=== PATIENT | female | born 1955 | race Caucasian/White ===

== ENCOUNTER 2019-06-19 14:40 | Outpatient (CLI) | payer MEDICARE, SELFPAY ==
--- NOTE | 2019-06-19 15:06 | XR_ITS ---
WS: [id number] DEXA (DUAL ENERGY X-RAY ABSORPTIOMETRY) Bone mineral density was performed using a [employer] machine. HISTORY: ASYMPTOMATIC POSTMENOPAUSAL STATUS, HYPERPARATHYROIDISM- COMPARISON: 03/06/2015 Lumbar spine BMD (L1-L4): 1.271 g/cm2 T score: 0.8 Z score: 1.1 Total hip BMD: Left: 0.783 g/cm2. T score: -1.8 Z score: -1.5 Right: 0.815 g/cm2. T score: -1.5 Z score: -1.2 10 year probability of a major osteoporotic fracture is 10%. Compared to the prior study from 03/06/2015. Lumbar spine bone mineral density has increased by 12.6%. Bilateral hips bone mineral density has decrease by 8.3%. XR/XR DEXA axial skeleton* [id number] IMPRESSION: OSTEOPENIA based upon the WHO classification for females. Significant decrease in bone mineral density in the hips since the prior study. Bone mineral density in the lumbar spine has increased but I believe this is p robably due to increasing sclerosis and causing false elevation of the BMD.
== END 2019-06-19 14:41 | disposition home or self-care (01) ==
LOC: RADWPI 14:47
PROVIDERS: Family Provider Internal Medicine; PCP Internal Medicine; Visit Provider Internal Medicine
DX: Z78.0 Asymptomatic menopausal state (principal); E21.2 Other hyperparathyroidism; M85.89 Other specified disorders of bone density and structure, multiple sites
CPT/HCPCS: 77080

== ENCOUNTER 2019-10-29 10:06 | Outpatient (CLI) | payer MEDICARE, SELFPAY ==
--- NOTE | 2019-10-29 10:19 | CT_ITS ---
WS: [id number] LDCT LUNG CANCER SCREENING TECHNIQUE: Noncontrast CT of the chest with coronal and sagittal reformatted images. CLINICAL INFORMATION: NICOTINE,DEPENDENCE COMPARISON: None. DLP: 76.4 mGy.cm DIvol: 2.[address] scans at [facility] use at least one of these dose optimization techniques: automat ed exposure control; mA and/or kV adjustment per patient size (includes targeted exams where dose is matched to clinical indication); or iterative reconstruction. FINDINGS: Moderate chronic emphysematous changes. Calcified granuloma right lower lobe. No suspicious pulmonary parenchymal abnormalities. Aortic calcification. Coronary calcification. No mediastinal or hilar lym phadenopathy. Partially visualized right adrenal nodules likely adenomas appear unchanged since CTA D ec2018. This is poorly visualized. Hypertrophic changes thoracic spine. CT/CT lung screening [id number] IMPRESSION: LUNG-RADS: 1-Negative FOLLOW UP: 12 Month: Continue annual screening with LDCT
== END 2019-10-29 10:07 | disposition home or self-care (01) ==
LOC: CT 10:08
PROVIDERS: PCP Internal Medicine; Visit Provider Internal Medicine
DX: F17.218 Nicotine dependence, cigarettes, with other nicotine-induced disorders (principal)
CPT/HCPCS: G0297

== ENCOUNTER 2020-04-06 07:37 | Outpatient (CLI) | payer MEDICARE, SELFPAY ==
--- NOTE | 2020-04-06 08:06 | NM_ITS ---
WS: [id number] NUCLEAR MEDICINE PARATHYROID SCAN HISTORY: PRIMARY HYPERPARATHYROIDISM COMPARISON: 10/24/2018 Patient is injected with 20.1 mCi technetium 99m Sestamibi. Static imaging of the anterior neck and u pper thorax submitted at injection time and one hour postinjection. Sternal notch marker and chin mar kers are placed. Normal activity and uptake in the thyroid gland bilaterally on the early imaging. On the delayed imag ing, activity from the thyroid gland has washed out. There is no persistent focal nodule to suggest p arathyroid adenoma. NM/NM parathyroid [id number] IMPRESSION: No parathyroid adenoma identified. Similar to the prior parathyroid scan of 09/30.
== END 2020-04-06 07:38 | disposition home or self-care (01) ==
PROVIDERS: PCP Internal Medicine; Visit Provider Otolaryngology
DX: E21.0 Primary hyperparathyroidism (principal)
CPT/HCPCS: 78070; A9500

== ENCOUNTER → 2020-08-21 12:49 | Outpatient (BNVA) | payer MEDICARE, SELFPAY | PROVIDERS: PCP Internal Medicine; Visit Provider Internal Medicine | DX: Z01.812 Encounter for preprocedural laboratory examination (principal); Z20.822 Contact with and (suspected) exposure to COVID-19 | CPT/HCPCS: 87635 ==

== ENCOUNTER → 2020-09-11 13:36 | Outpatient (BNVA) | payer MEDICARE, SELFPAY | PROVIDERS: PCP Internal Medicine; Visit Provider Internal Medicine | DX: Z01.812 Encounter for preprocedural laboratory examination (principal); Z20.822 Contact with and (suspected) exposure to COVID-19 | CPT/HCPCS: 87635 ==

== ENCOUNTER 2020-09-16 11:22 | Outpatient (CLI) | payer MEDICARE, SELFPAY ==
--- NOTE | 2020-09-16 12:59 | PFTS_ITS ---
Date of Study:09/16/20 Date of Dictation: MECHANICS: Forced vital capacity (FVC) is reduced. Forced expiratory volume in one second (FEV1) is reduced. FEV1/FVC is normal. FLOW VOLUME LOOP: Normal. LUNG VOLUMES: Not measured DIFFUSING CAPACITY FOR CARBON MONOXIDE: Not measured INTERPRETATION: The postbronchodilator spirometry is consistent with moderate restriction. There is no significant postbronchodilator response. MTDD
== END 2020-09-16 11:23 | disposition home or self-care (01) ==
LOC: RT 11:24
PROVIDERS: PCP Internal Medicine; Visit Provider Internal Medicine
DX: J44.9 Chronic obstructive pulmonary disease, unspecified (principal)
CPT/HCPCS: J7611

== ENCOUNTER 2020-12-04 12:57 | Emergency (ER) | payer MEDICARE, SELFPAY ==
[2020-12-04 13:08] VITALS: BP 82/52; PULSE 81; RESP 16; TEMP 36.8; O2SAT 94; BMI 46.5
[2020-12-04 13:47] VITALS: BP 100/66; BP 73/56; BP 85/54; PULSE 88; PULSE 90; PULSE 91
[2020-12-04] MEDS: sodium chloride 0.9% 1,000 ML 999 ML IV (13:58)
[2020-12-04 14:00] LABS: Add Urine Microscopic? NO; Charge for UA Resulting for Rev
[2020-12-04 14:01] LABS: Basophils # 0.1 10^3/uL (0.0-0.1); Basophils % 0.5 %; Eosinophils # 0.2 10^3/uL (0.0-0.8); Eosinophils % 1.4 %; Hematocrit 41.4 % (37.0-47.0); Hemoglobin 14.1 g/dL (11.5-15.3); Lymphocytes # 2.1 10^3/uL (0.8-4.8); Lymphocytes % 14.3 %; Mean Corpuscular HGB Conc 34.1 g/dL (30.0-36.0); Mean Corpuscular Hemoglobin 35.5 pg (28.0-34.0); Mean Corpuscular Volume 104.3 fL (81-99); Mean Platelet Volume 10.1 fL (7.4-10.4); Monocytes % 6.8 %; Neutrophils # 11.16 10^3/uL (1.8-7.7); Neutrophils % 76.5 %; Nucleated Red Blood Cells % 0 %; Platelet Count 306 10^3/cmm (130-400); Red Blood Count 3.97 10^6/uL (4.1-5.3); Red Cell Distribution Width 14.6 % (12.1-15.1); White Blood Count 14.6 10^3/uL (4.0-10.0)
--- NOTE | 2020-12-04 14:10 | W.ED.SYNCOPE ---
HPI - Syncope General: Chief Complaint: Syncope Stated Complaint: SYNCOPAL EPISODE/ HYPOTENSION Time Seen by Provider: 12/04/20 13:23 History of Present Illness: HPI narrative: 85-year-old female presents emergency room via EMS. She was at [facility] walking around got lightheaded and dizzy she sat down she took a couple of sugar tablets had a near syncopal episode EMS reports she was hypotensive on the scene. She has had similar episodes in the past. Her blood sugar in the field was reported to be 200. She is feeling fine now she is very orthostatic on evaluation. She denies any chest pain difficulty breathing. She did not have any chest pain prior she remembers all the events surrounding it. She denies that she lost consciousness she did not hit her head or injure herself in any other way. MD complaint: almost passed out and collapsed Onset (ago): minute(s) Prodromal symptoms: lightheaded Witnessed: Yes - by Bystander Associated symptoms: Reports lightheadedness and nausea; Deny abdominal pain, chest pain, fever(s), headache(s) or weakness Treatments prior to arrival: glucose Review of Systems Const: Denies: fever(s) ENMT: Denies: throat pain, ear or mastoid pain, nasal discharge or nasal congestion Card: Reports: lightheadedness; Denies: chest pain Resp: Denies: dyspnea, productive cough or non-productive cough GI: Reports: nausea; Denies: abdominal pain : Denies: flank pain, difficulty voiding, dysuria, urinary frequency or urinary urgency Skin/Breast: Denies: rash or pruritus Neuro: Denies: headache(s) PFSH ED PFSH: Medical History Abdominal aortic aneurysm (AAA) CAD (coronary artery disease) HTN (hypertension) Hyperlipidemia Ischemic cardiomyopathy Family History Father Diabetes Myocardial infarction Grandmother Diabetes Other CAD (coronary artery disease) Cancer Hypertension Social History Smoking and tobacco status: current some day smoker (stress smoker) Physical Exam Const: COMMON NORMALS: no acute distress GENERAL APPEARANCE: cooperative and comfortable ORIENTATION/CONSCIOUSNESS: Yes awake, Yes oriented to person, Yes oriented to place and Yes oriented to time HENMT: COMMON NORMALS: normocephalic, atraumatic, hearing grossly normal bilaterally and external ears normal HEAD & SCALP: normocephalic and atraumatic EXTERNAL EAR: Yes external ears normal Neck/C-Spine: COMMON NORMALS: no JVD Resp: COMMON NORMALS: normal respiratory effort, No retractions, No use of accessory muscles and clear to auscultation bilaterally AUSCULTATION: clear to auscultation bilaterally Cardio: COMMON NORMALS: no JVD, regular rate, regular rhythm and No murmurs present (Cardio) RATE: regular rate RHYTHM: regular rhythm GI: COMMON NORMALS: Soft to palpation and No hepatosplenomegaly present AUSCULTATION: Yes normoactive bowel sounds PALPATION: Yes Soft to palpation, No Tenderness to palpation present (GI), No Guarding due to palpation present (GI) and Yes No hepatosplenomegaly present Extremity: COMMON NORMALS: normal to inspection, capillary refill normal, no clubbing, cyanosis or edema, no calf tenderness and no pedal edema Neuro: SENSORIUM/ORIENTATION: Yes oriented to person, Yes oriented to place and Yes oriented to time Skin: COMMON NORMALS: no rashes or lesions noted GENERAL SKIN EXAM: no rashes or lesions noted Course Vital Signs: Vital signs: Vital Signs Temperature 98.2 F 12/04/20 16:12 Pulse Rate 86 12/04/20 16:12 Respiratory Rate 18 12/04/20 16:12 Blood Pressure 118/88 12/04/20 16:12 Pulse Oximetry 95 12/04/20 16:12 MDM - Syncope MDM Narrative: Medical decision making narrative: With IV fluids symptoms have improved and resolved. Patient is mildly hypokalemic will give her some potassium supplement. Return if has any further problems. Discussed with her following with primary care doctor about adjusting her medications particularly either Coreg or her amlodipine. Lab Data: Labs: Lab Results 12/04/20 12/04/20 12/04/20 Range/Units 13:42 13:50 13:50 WBC 14.6 H (4.0-10.0) 10^3/ uL RBC 3.97 L (4.1-5.3) 10^6/u L Hgb 14.1 (11.5-15.3) g/dL Hct 41.4 (37.0-47.0) % MCV 104.3 H (81-99) fL MCH 35.5 H (28.0-34.0) pg MCHC 34.1 (30.0-36.0) g/dL RDW 14.6 (12.1-15.1) % Plt Count 306 (130-400) 10^3/c mm MPV 10.1 (7.4-10.4) fL Neut % (Auto) 76.5 % Lymph % (Auto) 14.3 % [place] % (Auto) 6.8 % Eos % (Auto) 1.4 % Baso % (Auto) 0.5 % Neut # (Auto) 11.16 H (1.8-7.7) 10^3/u L Lymph # (Auto) 2.1 (0.8-4.8) 10^3/u L [place] # (Auto) 1.0 H (0.2-0.9) 10^3/u L Eos # (Auto) 0.2 (0.0-0.8) 10^3/u L Baso # (Auto) 0.1 (0.0-0.1) 10^3/u L Nucleated RBC % (a uto) 0 % Nucleated RBCs # 0.0 /100WBC Sodium 138 (136-145) mmol/L Potassium 3.0 L (3.5-5.1) mmol/L Chloride 96 L (98-107) mmol/L Carbon Dioxide 32 H (22-29) mmol/L Anion Gap 13.0 (5-19) BUN 10 (8-23) mg/dL Creatinine 1.1 H (0.5-0.9) mg/dL GFR Calculation 49.8 L (90-130) mL/min Glucose 200 H (65-115) mg/dL Calculated Osmolal ity 291 (285-295) mOsm/k g Calcium 7.4 L (8.5-10.5) mg/dL Total Bilirubin 0.8 (0.15-1.2) mg/dL AST 14 (0-32) U/L ALT 8 (0-33) U/L Alkaline Phosphata se 134 H (35-105) IU/L Total Protein 6.7 (6.6-8.7) g/dL Albumin 3.5 (3.5-5.2) g/dL Globulin 3.2 (1.3-4.6) g/dL Urine Color Straw (Yellow) Urine Appearance Clear (CLEAR) Urine pH 8 H (5-7) Ur Specific Gravit y 1.005 (1.005-1.030) Urine Protein Neg (Negative) Urine Glucose (UA) Norm (Normal) Urine Ketones Negative (Negative) Urine Blood Neg (Negative) Urine Nitrate Negative (Negative) Urine Bilirubin Neg (Negative) Prot Sulfosalicyli c Acd Negative (Negative) Urine Urobilinogen Norm (Negative) mg/dL Ur Leukocyte Michelle ase Negative (Negative) Discharge Plan Discharge Patient Disposition: Home Clinical Impression: Orthostasis, Hypokalemia Condition: Stable Prescriptions: New potassium chloride 20 mEq tablet,ER particles/crystals 20 meq PO DAILY Qty: 30 RF: 0 No Action lisinopril 20 mg tablet 20 mg PO DAILY RF: 0 calcium carbonate-vitamin D3 [Calcium 600 with Vitamin D3] 600 mg(1,500mg) -500 unit capsule 2 cap PO DAILY RF: 0 potassium gluconate 595 mg (99 mg) tablet extended release 99 mg PO DAILY RF: 0 bumetanide 1 mg tablet 1 mg PO DAILY RF: 0 carvedilol [Coreg] 25 mg tablet 25 mg PO BID RF: 0 cyclobenzaprine 10 mg tablet 10 mg PO BID PRN (Reason: Pain) RF: 0 fluticasone propionate [Allergy Relief (fluticasone)] 50 mcg/actuation spray,suspension 1 spray INTRANASAL DAILY RF: 0 atorvastatin [Lipitor] 40 mg tablet 40 mg PO DAILY RF: 0 nitroglycerin [Nitrostat] 0.4 mg tablet, sublingual 0.4 mg SUBLINGUAL Q5M PRN (Reason: Chest Pain) RF: 0 amlodipine [Norvasc] 5 mg tablet 5 mg PO DAILY RF: 0 famotidine [Pepcid] 20 mg tablet 20 mg PO DAILY RF: 0 sertraline [Zoloft] 25 mg tablet 25 mg PO DAILY RF: 0 cetirizine [Zyrtec] 10 mg tablet 10 mg PO DAILY RF: 0 Ozempic 0.25 mg or 0.5 mg(2 mg/1.5 mL) pen injector 0.5 mg SUBCUT Q7D RF: 0 insulin asp prt-insulin aspart [Novolog Mix 70-30 U-100 Insuln] 100 unit/mL (70-30) solution 5 unit SUBCUT .sliding scale RF: 0 Tresiba FlexTouch U-100 100 unit/mL (3 mL) insulin pen 50 unit SUBCUT DAILY RF: 0 prasugrel [Effient] 10 mg tablet 10 mg PO DAILY Qty: 90 RF: 3 isosorbide mononitrate 30 mg tablet extended release 24 hr 30 mg PO DAILY Qty: 90 RF: 3 omeprazole 40 mg Capsule,Delayed Release(Dr/Ec) 40 mg PO DAILY RF: 0 Robaxin 750 mg Tablet 750 mg PO Q8H PRN (Reason: Pain) RF: 0 Symbicort 160-4.5 mcg/actuation Hfa Aerosol Inhaler 2 puff INHALATION BID PRN (Reason: Shortness Of Breath) RF: 0 Discharge Orders: Discharge ED (Routine); Ordered 12/04/20 Ordered By: Jose Nixon Referrals: Amie Emery MD [Primary Care Provider] - Patient Instructions: Opioid Safety Coding Level of Care Code ED Md Allergy Immunology for Chg Fwd Exam Comprehensive
[2020-12-04 14:11] LABS: Bilirubin Urine Neg (Negative); Blood Urine Neg (Negative); Glucose Urine UA Norm (Normal); Ketones Urine Negative (Negative); Leukocyte Esterase Urine Negative (Negative); Nitrate Urine Negative (Negative); Protein Urine Neg (Negative); Specific Gravity, Urine 1.005 (1.005-1.030); Sulfosalicylic Acid Urine Negative (Negative); Urine Appearance Clear (CLEAR); Urine Color Straw (Yellow); Urobilinogen Urine Norm (Negative); pH Urine 8 (5-7)
[2020-12-04 14:32] LABS: Alanine Aminotransferase 8 U/L (0-33); Albumin Level 3.5 g/dL (3.5-5.2); Alkaline Phosphatase 134 IU/L (35-105); Aspartate Amino Transferase 14 U/L (0-32); Blood Urea Nitrogen 10 mg/dL (8-23); Calcium 7.4 mg/dL (8.5-10.5); Carbon Dioxide 32 mmol/L (22-29); Chloride 96 mmol/L (98-107); Globulin 3.2 g/dL (1.3-4.6); Glomerular Filtration Rate 49.8 mL/min (90-130); Glucose 200 mg/dL (65-115); Osmolality Calculated 291 mOsm/kg (285-295); Sodium 138 mmol/L (136-145); Total Bilirubin 0.8 mg/dL (0.15-1.2); Total Protein 6.7 g/dL (6.6-8.7)
[2020-12-04 15:18] VITALS: BP 92/66; PULSE 81; RESP 16; O2SAT 93
[2020-12-04 15:39] VITALS: BP 119/77
[2020-12-04 15:58] VITALS: BP 118/88; PULSE 86; RESP 18; O2SAT 95
[2020-12-04 16:12] VITALS: BP 118/88; PULSE 86; RESP 18; TEMP 36.8; O2SAT 95
== END 2020-12-04 16:16 | disposition home or self-care (01) ==
PROVIDERS: Emergency Provider Family Medicine; PCP Internal Medicine
DX: I95.1 Orthostatic hypotension (principal); E87.6 Hypokalemia; Z79.4 Long term (current) use of insulin; I25.10 Atherosclerotic heart disease of native coronary artery without angina pectoris; I10 Essential (primary) hypertension; E78.5 Hyperlipidemia, unspecified; F17.210 Nicotine dependence, cigarettes, uncomplicated
CPT/HCPCS: 80053; 81003; 85025; 96360; 99284; J7030

== ENCOUNTER 2020-12-15 07:07 | Outpatient (CLI) | payer MEDICARE, SELFPAY ==
--- NOTE | 2020-12-15 07:39 | ECG_ITS ---
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 The perfusion scan will be documented separately. DATA: Baseline heart rate was 89 beats per minute. Baseline blood pressure was 126/82 millimeters of mercury. Target heart rate was 155. Maximum heart rate achieved was 125. which was 80 % of the predicted target heart rate. Maximum blood pressure was 140/85 millimeters of mercury. The reason for ending the test was completion of the protocol. The patient did not experience any symptoms. ELECTROCARDIOGRAM: BASELINE: Sinus rhythm, normal axis. Otherwise, no ST-T changes suggestive of ischemia noted. No arrhythmia noted. EXERCISE: After Lexiscan injection, no ST-T changes suggestive of ischemic noted. No arrhythmia noted. CONCLUSION: Please note due to baseline abnormality of the EKG specificity and sensitivity of the EKG portion of LexiScan MIBI stress test will be low 1. EKG not suggestive of ischemia 2. Lexiscan injection unremarkable. 3. Perfusion scan will be documented separately. Electronically Signed On 12-23-2020 21:13:04 CDT by ORIANA FRENCH [id number]
--- NOTE | 2020-12-15 07:40 | NMCV_ITS ---
NM everardo perf SPECT r/s* [id number] Jw Jessa Age: 65 Gender: F : 1955 Exam Date: 12/15/2020 08:30 Ordering Phys: Oriana French MD ([email or web address]) Technologist: ROGER Hardin Exam Location: [facility] Indications: SHORTNESS OF BREATH CHEST PAIN STRESS TEST Please see separate stress test report in [facility] for full findings IMAGE PROTOCOL Rest/Stress 1 Lexiscan Day Radiopharmaceutical Dose (mCi) Administration Site Administered by Rest: Tc-99m 10.6 IV ROGER Moreno Sestamibi Stress:Tc-99m 32.8 IV ROGER Moreno Sestamibi Rest: 15-Dec-2020 60 Discovery 630 Stress: 15-Dec-2020 30 Discovery 630 0.4mg Lexiscan. Supine position only as patient was unable to lay prone. SPECT RESULTS Technical Quality: Good Raw Data Analysis: Breast attenuation Image Corrections: No attenuation or motion correction applied Summed Stress Score: 4 Summed Rest Score: 0 Summed Difference Score: 4 PERFUSION FINDINGS Medium-sized area of patchy decreased tracer uptake noted in basal to distal inferior wall suggestive of old myocardial infarction versus scarring. In the absence of wall motion abnormality could be an artifact. FUNCTIONAL RESULTS (calculated via Gated SPECT) Stress Image LV EF (%): 75 Stress EDV (mL):77 TID: 1 Stress ESV (mL):19 Rest Image LV EF (%): 75 FUNCTIONAL FINDINGS: There is normal left ventricular systolic function. IMPRESSIONS Perfusion scan is negative for ischemia, EKG portion will be documented separately. Oriana French MD (Electronically Signed) Final Date: 15 December 2020 16:50 S
[2020-12-15 07:41] VITALS: BMI 44.9
[2020-12-15] MEDS: regadenoson 0.4 Mg/5 ml Syringe IVP (09:11)
[2020-12-15 09:12] VITALS: BP 123/81; PULSE 101
[2020-12-15] MEDS: ondansetron 2 mg/ML SDV 2 mL 4 MG IVP (09:12)
== END 2020-12-15 07:08 | disposition home or self-care (01) ==
PROVIDERS: PCP Internal Medicine; Visit Provider Internal Medicine Cardiovascular Disease
DX: R06.02 Shortness of breath (principal); R07.9 Chest pain, unspecified
CPT/HCPCS: 78452; 93017; A9500; J2405; J2785

== ENCOUNTER 2020-12-31 07:50 | Outpatient (CLI) | payer MEDICARE, SELFPAY ==
--- NOTE | 2020-12-31 08:00 | USCV_ITS ---
Jessa Escalera Age: 65 Gender: F : 1955 Exam Date: 12/31/2020 08:13 Ordering Phys: Oriana French MD ([email or web address]) Technologist: [place]am [place] [facility] [place]ication: AAA HISTORY: Diameter (cm) AP x Transverse x Length Velocity (cm/s) Waveform Prox Aorta: 2.46 x 2.26 x 65.50 Biphasic Mid Aorta: 2.37 x 2.52 x 58.00 Biphasic Distal Aorta: 3.59 x 3.62 x 100.80 Biphasic Right Iliac Prox: 1.35 x 1.44 x 61.10 Biphasic Left Iliac Prox: 1.25 x 1.64 x 72.70 Biphasic Stent Prox Landing x x Aneurysmal Sac Max x x Lt Lat Sac Dim Rt Lat Sac Dim Stent Dist Landing x x Right Iliac Stent x x Left Iliac Stent x x Right Renal Art Left Renal Art FINDINGS: Comparison: none available. A fusiform abdominal aortic aneurysm is noted with a maximal diameter of 3.6 cm. Ectatic abdominal aorta with evidence of atherosclerotic plaque noted. There is no evidence of a right common iliac artery aneurysm. There is no evidence of a left common iliac artery aneurysm. CONCLUSIONS AAA with maximum diameter of 3.[address] Raysa Lucero DO (Electronically Signed) Final Date: 31 December 2020 12:07 S
== END 2020-12-31 07:51 | disposition home or self-care (01) ==
PROVIDERS: PCP Internal Medicine; Visit Provider Internal Medicine Cardiovascular Disease
DX: I71.4 Abdominal aortic aneurysm, without rupture (principal)
CPT/HCPCS: 93978

== ENCOUNTER 2021-01-01 07:29 | Outpatient (CLI) | payer MEDICARE, SELFPAY ==
--- NOTE | 2021-01-01 08:00 | USCV_ITS ---
Jessa Escalera Age: 65 Gender: F : 1955 Exam Date: 01/01/2021 08:20 Ordering Phys: Amie Emery MD Technologist: Earline Arellano Exam Location: [facility] [place] Indication: edema BP: 109 / 64 HR: 78 Rhythm: Sinus Technical Quality: Adequate MEASUREMENTS (Male / Female) Normal Values 2D ECHO LV Diastolic Diameter PLAX 5.0 cm 4.2 - 5.9 / 3.9 - 5.3 cm LV Systolic Diameter PLAX 2.3 cm IVS Diastolic Thickness 1.0 cm 0.6 - 1.0 / 0.6 - 0.9 cm IVS Systolic Thickness 2.1 cm LVPW Diastolic Thickness 0.9 cm 0.6 - 1.0 / 0.6 - 0.9 cm LVPW Systolic Thickness 1.8 cm LV Ejection Fraction 2D Teich 85.1 % LV Ejection Fraction MOD 2C 68.6 % LV Ejection Fraction 2C AL 68.6 % LA Diameter 3.3 cm LA Width 3.0 cm LA Height 5.6 cm RA Width 3.6 cm RA Height 5.4 cm Aorta at Sinotubular Diameter 3.1 cm M-MODE Aortic Annulus Diameter 3.5 cm LA Ao Ratio MM 0.9 DOPPLER AV Peak Velocity 198.7 cm/s LVOT Peak Velocity 76.0 cm/s MV Peak Velocity 111.0 cm/s MV Area PHT 4.5 cm squared Mitral E to A Ratio 0.9 MV E' Velocity 47.0 cm/s Mitral E to MV E' Ratio 11.6 Mitral E to LV E' Lateral Ratio 12.9 Mitral E to LV E' Septal Ratio 10.6 TR Peak Velocity 119.2 cm/s TR Peak Gradient 5.7 mmHg Right Atrial Pressure 3.0 mmHg Pulmonary Artery Systolic Pressu 8.7 mmHg PV Peak Velocity 80.0 cm/s RV Acceleration Time 0.1 s RV Ejection Time 0.3 s RV AcT/ET 0.3 FINDINGS Left Ventricle Normal left ventricular cavity size. Normal left ventricular systolic function. No regional wall motion abnormalities. Left ventricular ejection fraction is estimated at 65 %. Grade I/IV diastolic dysfunction (abnormal relaxation filling pattern), normal to mildly elevated filling pressures. Right Ventricle The right ventricle is normal in size and function. Right Atrium The right atrium is normal in size. Left Atrium The left atrium is normal in size. Mitral Valve Mildly thickened mitral valve. No mitral valve stenosis. No mitral valve regurgitation. Aortic Valve There appeared to be possible bicuspid aortic valve , moderate aortic valve calcification. No aortic valve stenosis. Mild aortic valve regurgitation. Tricuspid Valve Mild tricuspid valve regurgitation. Pulmonic Valve Structurally normal pulmonic valve without significant stenosis. There is no pulmonic regurgitation. Pericardium Normal pericardium without effusion. Aorta Normal ascending aorta dimension. CONCLUSIONS 1-Normal left ventricular cavity size. Normal left ventricular systolic function. No regional wall motion abnormalities. Left ventricular ejection fraction is estimated at 65 %. Grade I/IV diastolic dysfunction (abnormal relaxation filling pattern), normal to mildly elevated filling pressures. 2-There appeared to be possible bicuspid aortic valve , moderate aortic valve calcification. No aortic valve stenosis. Mild aortic valve regurgitation. 3-Mild tricuspid valve regurgitation. 4-There is no pericardial effusion. 5-Pulmonary artery systolic pressure is within normal limits. 6-Right atrial pressure is around 5 mm of mercury. 7-No significant change since the prior echocardiogram study of 08/20/2018. Oriana French MD (Electronically Signed) Final Date: 01 January 2021 15:46 S
== END 2021-01-01 07:30 | disposition home or self-care (01) ==
LOC: RAD 07:33
PROVIDERS: PCP Internal Medicine; Visit Provider Internal Medicine
DX: R60.0 Localized edema (principal); F17.218 Nicotine dependence, cigarettes, with other nicotine-induced disorders; I08.2 Rheumatic disorders of both aortic and tricuspid valves
CPT/HCPCS: 93306

== ENCOUNTER 2021-01-21 13:08 | Outpatient (CLI) | payer MEDICARE, SELFPAY ==
--- NOTE | 2021-01-21 13:18 | XR_ITS ---
WS: [id number] Chest 2 views, 01/21/2021 Clinical Data: RULE OUT PNEUMONIA Comparison: PA and lateral chest, 09/19/2018. Findings: No nodules, masses or effusions are seen. The heart is normal. The pulmonary vascularity is not increased. No pneumonia or pneumothorax is seen. The aortic arch and descending thoracic aorta s how calcification and tortuosity. XR/XR chest 2V* [id number] Impression: Atherosclerosis.
[2021-01-21 13:51] LABS: Basophils # 0.1 10^3/uL (0.0-0.1); Basophils % 0.7 %; Eosinophils # 0.4 10^3/uL (0.0-0.8); Hematocrit 42.6 % (37.0-47.0); Hemoglobin 14.5 g/dL (11.5-15.3); Lymphocytes # 3.4 10^3/uL (0.8-4.8); Mean Corpuscular Hemoglobin 36.1 pg (28.0-34.0); Mean Platelet Volume 9.6 fL (7.4-10.4); Monocytes # 0.9 10^3/uL (0.2-0.9); Monocytes % 8.4 %; Neutrophils % 53.6 %; Nucleated Red Blood Cells % 0 %; Platelet Count 253 10^3/cmm (130-400); Red Blood Count 4.02 10^6/uL (4.1-5.3); Red Cell Distribution Width 13.2 % (12.1-15.1); White Blood Count 10.3 10^3/uL (4.0-10.0)
[2021-01-22 17:27] LABS: Alternaria Alternata (M6) Ige <0.10 kU/L; Alternaria Class 0; Bermuda Class 0; Bermuda Grass (G2) Ige <0.10 kU/L; Cat Dander (E1) Ige <0.10 kU/L; Cat Dander Class 0; Common Ragweed (Short) (W1) Ig <0.10 kU/L; D. Farinae Class 0; Dermatophagoides Class 0; Dermatophagoides Farinae (D2) <0.10 kU/L; Dermatophagoides Pteronyssinus <0.10 kU/L; Dog Dander (E5) Ige <0.10 kU/L; Dog Dander Class 0; Elm (T8) Ige <0.10 kU/L; Elm Class 0; English Plantain (W9) Ige <0.10 kU/L; English Plantain Class 0; House Dust (Greer) (H1) Ige <0.10 kU/L; House Dust (Hollister- Stier) <0.10 kU/L; House Dust Class 0; Immunoglobulin E 52 kU/L (<OR=114); Immunoglobulin E 54 kU/L (<OR=114); Johnson Grass (G10) Ige <0.10 kU/L; Johnson Grass Cl 0; June Grass Class 0; June Grass(Kentucky Blue) (G8) <0.10 kU/L; Lamb'S Quarters (Goose Foot) <0.10 kU/L; Lamb'S Quarters Class 0; Maple (Box Elder) (T1) Ige <0.10 kU/L; Maple Class 0; Meadow Fescue (G4) Ige <0.10 kU/L; Meadow Fescue Class 0; Mucor Racemosus Class 0; Oak (T7) Ige <0.10 kU/L; Oak Class 0; Orchard Grass (Cocksfoot) (G3) <0.10 kU/L; Penicillium Class 0; Penicillium Notatum (M1) Ige <0.10 kU/L; Perennial Rye Grass (G5) Ige <0.10 kU/L; Perennial Rye Grass Class 0; Ragweeed Class 0; Rough Marsh Elder (W16) Ige <0.10 kU/L; Rough Marsh Elder Class 0; Sweet Vernal Class 0; Sweet Vernal Grass (G1) Ige <0.10 kU/L; Timothy Grass (G6) Ige <0.10 kU/L; Timothy Grass Class 0
[2021-01-25 17:18] LABS: Aspergillus Fumigatus, Igg Ab, <3.0 mg/L (<=102)
== END 2021-01-21 13:09 | disposition home or self-care (01) ==
LOC: RAD 13:14
PROVIDERS: PCP Internal Medicine; Visit Provider Internal Medicine Pulmonary Disease
DX: J44.9 Chronic obstructive pulmonary disease, unspecified (principal); R06.02 Shortness of breath; I70.90 Unspecified atherosclerosis
CPT/HCPCS: 36415; 71046; 82785; 85025; 86003

== ENCOUNTER 2021-02-15 12:26 | Outpatient (CLI) | payer MEDICARE, SELFPAY ==
--- NOTE | 2021-02-15 13:03 | MM_ITS ---
WS: [id number] BILATERAL DIGITAL SCREENING MAMMOGRAPHY WITH CAD CLINICAL INFORMATION: SCREEN HISTORY: Screening mammogram. No current complaints. COMPARISON: August 20, 2018 TECHNIQUE: Bilateral CC and MLO views. FINDINGS: Scattered fibroglandular densities bilaterally. Punctate and secretory calcifications. No suspicious focal mass, asymmetry, calcifications, or architectural distortion. No evidence of malignancy. MM/[place] [id number] IMPRESSION: BI-RADS: 2-Benign FOLLOW UP: 1 Year Follow-up Recommend return to annual screening mammography.
== END 2021-02-15 12:27 | disposition home or self-care (01) ==
LOC: RADSHAW 12:29
PROVIDERS: PCP Internal Medicine; Visit Provider Internal Medicine
DX: Z12.31 Encounter for screening mammogram for malignant neoplasm of breast (principal)
CPT/HCPCS: 77067

== ENCOUNTER → 2021-07-12 14:42 | Outpatient (BNVA) | payer MEDICARE, SELFPAY | PROVIDERS: PCP Internal Medicine; Visit Provider Internal Medicine | DX: I25.10 Atherosclerotic heart disease of native coronary artery without angina pectoris (principal); I10 Essential (primary) hypertension; I25.5 Ischemic cardiomyopathy; I71.4 Abdominal aortic aneurysm, without rupture; Z87.891 Personal history of nicotine dependence | CPT/HCPCS: 99214 ==

== ENCOUNTER 2021-09-21 12:19 | Outpatient (CLI) | payer MEDICARE, SELFPAY ==
--- NOTE | 2021-09-21 12:40 | CT_ITS ---
WS: [id number] CT CHEST WITH INTRAVENOUS CONTRAST HISTORY: COUGH/COPD TECHNIQUE: Contiguous 5 mm axial imaging performed on the thorax. Coronal and sagittal reformats are submitted. All CT scans at [facility] use at least one of these dose optimization techniques: automated exposure control; mA and/or kV adjustment per patient size (includes targeted exams where dose is matched to clinical indication); or iterative reconstruction. CONTRAST: Omnipaque 300; 50 mL IV. DLP: 724.48 mGy.cm COMPARISON: 10/29/2019 Lungs and central airway: Noncalcified 7 mm nodule RIGHT lung base, image 38 of series 5. Stable on . Probably also present on the study of 04/01/2019 but increased in size. Mild increased densi ty in the RIGHT middle lobe from mild atelectasis. There is pleural thickening along the fissure. Pleura: Normal. No pleural effusion. Heart and pericardium: Normal size heart with no pericardial effusion. Mediastinum and roxana: No mediastinum or hilar adenopathy. Vessels: Mild atherosclerosis aorta. Normal size pulmonary artery. Coronary artery calcifications. Chest wall and lower neck: No soft tissue masses. Upper abdomen: RIGHT adrenal adenomas with the largest measuring 2.9 x 2.7 cm. Smaller adenoma on the RIGHT also. Normal LEFT adrenal gland. Osseous structures: Moderate spondylitic changes throughout the thoracic spine. Advanced degenerative joint disease involving the RIGHT glenohumeral joint. CT/CT chest w con* [id number] IMPRESSION: 1. 7 mm RIGHT lower lobe nodule slightly increased in size since 04/01/2019. Re commend additional [address] follow-up. 2. RIGHT adrenal adenomas. 3. Atherosclerosis thoracic aorta. 4. Partial atelectasis RIGHT middle lobe.
[2021-09-21] MEDS: iohexol 300 mg/mL 100 mL Btl IV (14:21)
== END 2021-09-21 12:20 | disposition home or self-care (01) ==
PROVIDERS: PCP Internal Medicine; Visit Provider Internal Medicine
DX: J44.9 Chronic obstructive pulmonary disease, unspecified (principal); R05.9 Cough, unspecified; D35.01 Benign neoplasm of right adrenal gland; R91.1 Solitary pulmonary nodule; I70.0 Atherosclerosis of aorta; J98.11 Atelectasis
CPT/HCPCS: 71260

== ENCOUNTER → 2022-01-10 14:42 | Outpatient (BNVA) | payer MEDICARE, SELFPAY | PROVIDERS: PCP Internal Medicine; Visit Provider Internal Medicine | DX: I25.10 Atherosclerotic heart disease of native coronary artery without angina pectoris (principal); I10 Essential (primary) hypertension; I25.5 Ischemic cardiomyopathy; I71.4 Abdominal aortic aneurysm, without rupture; F17.200 Nicotine dependence, unspecified, uncomplicated | CPT/HCPCS: 99214 ==

== ENCOUNTER → 2022-01-17 09:48 | Outpatient (BNVA) | payer MEDICARE, SELFPAY | PROVIDERS: PCP Internal Medicine; Visit Provider Internal Medicine Pulmonary Disease | DX: J44.9 Chronic obstructive pulmonary disease, unspecified (principal); R05.8 Other specified cough; G47.19 Other hypersomnia; I25.5 Ischemic cardiomyopathy; I25.10 Atherosclerotic heart disease of native coronary artery without angina pectoris; Z71.6 Tobacco abuse counseling; R06.83 Snoring; E66.01 Morbid (severe) obesity due to excess calories; Z68.42 Body mass index [BMI] 45.0-49.9, adult | CPT/HCPCS: 99214 ==

== ENCOUNTER → 2022-06-08 14:01 | Outpatient (BNVA) | payer MEDICARE, SELFPAY | PROVIDERS: PCP Internal Medicine; Visit Provider Podiatrist Foot & Ankle Surgery | DX: B35.1 Tinea unguium (principal); M24.573 Contracture, unspecified ankle; E11.42 Type 2 diabetes mellitus with diabetic polyneuropathy; M77.42 Metatarsalgia, left foot; Z79.4 Long term (current) use of insulin | CPT/HCPCS: 73630; 99204 ==

== ENCOUNTER → 2022-07-08 10:53 | Outpatient (BNVA) | payer MEDICARE, SELFPAY | PROVIDERS: PCP Internal Medicine; Visit Provider Nurse Practitioner Family | DX: I71.40 Abdominal aortic aneurysm, without rupture, unspecified (principal); I25.10 Atherosclerotic heart disease of native coronary artery without angina pectoris; I25.5 Ischemic cardiomyopathy; I10 Essential (primary) hypertension; F17.200 Nicotine dependence, unspecified, uncomplicated | CPT/HCPCS: 99214 ==

== ENCOUNTER → 2022-10-03 15:15 | Outpatient (BNVA) | payer MEDICARE, SELFPAY | PROVIDERS: PCP Internal Medicine; Visit Provider Podiatrist Foot & Ankle Surgery | DX: E11.42 Type 2 diabetes mellitus with diabetic polyneuropathy (principal); B35.1 Tinea unguium; M24.573 Contracture, unspecified ankle; G62.9 Polyneuropathy, unspecified; M77.42 Metatarsalgia, left foot; Z79.2 Long term (current) use of antibiotics | CPT/HCPCS: 11721 ==

== ENCOUNTER 2022-10-11 10:39 | Outpatient (CLI) | payer MEDICARE, SELFPAY ==
--- NOTE | 2022-10-11 10:48 | MM_ITS ---
WS: [id number] BILATERAL 3D TOMOSYNTHESIS DIGITAL SCREENING MAMMOGRAPHY WITH CAD CLINICAL INFORMATION: SCREENING HISTORY: Screening mammogram. No current complaints. COMPARISON: February 15, 2021 TECHNIQUE: Bilateral CC and MLO views. FINDINGS: Scattered fibroglandular densities bilaterally. No suspicious focal mass, asymmetry, calcifications, or architectural distortion. No evidence of malignancy. Incidental punctate calcifications. Secretory calcifications. MM/[place] [id number] IMPRESSION: BI-RADS: 2-Benign FOLLOW UP: 1 Year Follow-up Recommend return to annual screening mammography.
--- NOTE | 2022-10-11 11:23 | XRR_ITS ---
PROCEDURE INFORMATION: Exam: XR Lumbosacral Spine Exam date and time: 10/11/2022 11:26 AM Age: 67 years old Clinical indication: Low back pain; Patient HX: Trouble walking, ddd; Additional info: Degenerative disc dz, lumbosacral spine w/radiculopathy TECHNIQUE: Imaging protocol: Radiologic exam of the lumbosacral spine. Views: 6 or more views. Including flexion and extension views. COMPARISON: CT angio abdomen [id number] 04/01/2019 1:42 PM FINDINGS: Bones/joints: Spinal alignment is normal. Mild superior endplate compression fracture at L4. Diffuse upper lumbar disc narrowing and vertebral spondylosis. Mild convex left thoracolumbar scoliosis. Mild to moderate diffuse lumbar facet spondylosis. Visible portions of the ribs are intact. There is 5 mm anterolisthesis of L4 on L5 on the neutral view. This decreases to 2 mm on the flexion view and extension view. Soft tissues: Surgical clips are seen in the upper abdomen.There is a 3.2 cm calcified mass in the pelvis consistent with a calcified uterine leiomyoma. Intraperitoneal space: The visible portion of the pelvis is unremarkable. Vasculature: There is a 5.9 cm distal abdominal aortic aneurysm, increased since 04/01/2019 when it measured 3.4 cm. XR/XR lumbar spine 6V w f/e [id number] IMPRESSION: 1. 5.9 cm infrarenal abdominal aortic aneurysm, increased from 3.4 cm in 2019. Recommend CTA of the abdomen and pelvis. 2. Grade 1 anterolisthesis of L4 on L5 in the neutral position, decreased with flexion and extension. 3. Age-indeterminate L4 superior endplate compression fracture, new since 04/01/2019.
--- NOTE | 2022-10-11 11:36 | CT_ITS ---
WS: [id number] LDCT LUNG CANCER SCREENING TECHNIQUE: Noncontrast CT of the chest with coronal and sagittal reformatted images. CLINICAL INFORMATION: NICOTINE DEPENDENCE, CIGARETTES COMPARISON: CT September 21, 2021 DLP: 118.11 mGy.cm DIvol: Mean CTDIvol: 3.10 (mGy) All CT scans at [facility] use at least one of these dose optimization techniques: automat ed exposure control; mA and/or kV adjustment per patient size (includes targeted exams where dose is matched to clinical indication); or iterative reconstruction. FINDINGS: 7.6 mm RIGHT lower lobe nodule measures slightly more prominent today but not significantly changed. Slightly spiculated LEFT upper lobe nodule appears new from previous measuring 6.3 mm. Small RIGHT mi ddle lobe nodule measuring 4 mm. 4 mm nodule in the lingula. Ectatic ascending thoracic aorta measuring 4.1 cm unchanged. Normal caliber descending thoracic aorta . Coronary calcification. No mediastinal or hilar lymphadenopathy. No axillary lymphadenopathy.Spleni c artery calcification. Normal GE junction. Cholecystectomy clips. Stable RIGHT adrenal adenomas largest 2.9 CM. Hypertrophic changes thoracic spine. CT/CT lung screening 08120 IMPRESSION:7.6 mm RIGHT lower lobe nodule measures slightly more prominent toda y but not significantly changed. Slightly spiculated LEFT upper lobe nodule sony ears new from previous measuring 6.3 mm. Recommend 6 month follow-up. LUNG-RADS: 3-Probably Benign FOLLOW UP: 6 Month LDCT
== END 2022-10-11 10:40 | disposition home or self-care (01) ==
PROVIDERS: PCP Internal Medicine; Visit Provider Internal Medicine
DX: Z12.31 Encounter for screening mammogram for malignant neoplasm of breast (principal); Z13.820 Encounter for screening for osteoporosis; F17.210 Nicotine dependence, cigarettes, uncomplicated; M51.17 Intervertebral disc disorders with radiculopathy, lumbosacral region; I71.43 Infrarenal abdominal aortic aneurysm, without rupture; S32.048A Other fracture of fourth lumbar vertebra, initial encounter for closed fracture; X58.XXXA Exposure to other specified factors, initial encounter
CPT/HCPCS: 71271; 72114; 77063; 77067

== ENCOUNTER 2022-10-12 16:30 | Outpatient (CLI) | payer MEDICARE, SELFPAY ==
--- NOTE | 2022-10-12 16:39 | CTR_ITS ---
PROCEDURE INFORMATION: Exam: CTA Abdomen With Contrast Exam date and time: 10/12/2022 4:52 PM Age: 67 years old Clinical indication: Abnormal findings; Abnormal diagnostic imaging exam; Abnormality: Aaa; Exam and body structure: Xray lumbar spine; Prior surgery; Surgery date: 6+ months; Surgery type: Gallbladder, hernia; Patient HX: Back pain, known aneurysm; Additional info: Abdominal aortic aneurysm TECHNIQUE: Imaging protocol: Computed tomographic angiography of the abdomen with contrast. Exam focused on the arteries. 3D rendering (Not supervised by radiologist): MIP and/or 3D reconstructed images were created by the technologist. Radiation optimization: All CT scans at this facility use at least one of these dose optimization techniques: automated exposure control; mA and/or kV adjustment per patient size (includes targeted exams where dose is matched to clinical indication); or iterative reconstruction. Contrast material: OMNIPAQUE 350; Contrast volume: 95 ml; Contrast route: INTRAVENOUS (IV); REPORTING DATA: Count of CT and Cardiac NM exams in prior 12 months: This patient has received [address] and 0 known cardiac nuclear medicine studies in the 12 months prior to the current study. COMPARISON: CT angio abdomen [id number] 04/01/2019 1:42 PM RADIATION DOSE METRICS: Total DLP (mGy-cm): 503.2 FINDINGS: Aorta: Increased fusiform infrarenal abdominal aortic aneurysm measuring a maximum 5.0 cm in outer wall diameter. Asymmetric mural thrombus in the posterior and left portion of the aneurysm. Celiac trunk and mesenteric arteries: Calcified plaque with mild stenosis at the origin of the celiac artery and mild stenosis in the proximal superior mesenteric artery. Renal arteries: Calcified plaque with moderate stenosis in the proximal right renal artery and mild stenosis in the proximal left renal artery. Right iliac arteries: Mild aneurysmal dilatation of the right common iliac artery measuring 2.0 cm. Liver: Normal. No mass. Gallbladder and bile ducts: Cholecystectomy. The bile ducts are normal. Pancreas: Normal. No ductal dilation. Spleen: Normal. No splenomegaly. Adrenal glands: 2.5 cm and 3.0 cm right adrenal nodules, Hounsfield units less than 10. The left adrenal gland has been resected. Kidneys and ureters: 2 mm right and 3 mm left renal calculi. No hydronephrosis. Stomach and bowel: Unremarkable. No obstruction. No mucosal thickening. Lymph nodes: Unremarkable. No enlarged lymph nodes. Intraperitoneal space: Unremarkable. No free air. No significant fluid collection. Bones/joints: Degenerative changes of the spine. No fracture. Soft tissues: Unremarkable. CT/CT angio abdomen [id number] IMPRESSION: 1. Larger 5.0 cm infrarenal abdominal aortic aneurysm. No evidence for rupture. 2. 2.0 cm mild aneurysmal dilatation of the right common iliac artery. 3. Moderate stenosis in the proximal right renal artery. 4. Right adrenal benign adenomas.
[2022-10-12] MEDS: iohexol 350 mg/mL 500 mL Btl (per mL) IV (17:11)
== END 2022-10-12 16:31 | disposition home or self-care (01) ==
LOC: RAD 16:32
PROVIDERS: PCP Internal Medicine; Visit Provider Internal Medicine
DX: I71.40 Abdominal aortic aneurysm, without rupture, unspecified (principal); I72.2 Aneurysm of renal artery
CPT/HCPCS: 74175; Q9967

== ENCOUNTER → 2022-10-20 12:44 | Outpatient (BNVA) | payer MEDICARE, SELFPAY | PROVIDERS: PCP Internal Medicine; Visit Provider Internal Medicine Pulmonary Disease | DX: J44.9 Chronic obstructive pulmonary disease, unspecified (principal); I25.5 Ischemic cardiomyopathy; I25.10 Atherosclerotic heart disease of native coronary artery without angina pectoris; Z71.6 Tobacco abuse counseling; R05.8 Other specified cough; F17.200 Nicotine dependence, unspecified, uncomplicated; R06.83 Snoring; R51.9 Headache, unspecified; G47.10 Hypersomnia, unspecified; E66.01 Morbid (severe) obesity due to excess calories; Z68.41 Body mass index [BMI] 40.0-44.9, adult | CPT/HCPCS: 99214 ==

== ENCOUNTER → 2023-01-09 14:01 | Outpatient (BNVA) | payer MEDICARE, SELFPAY | PROVIDERS: PCP Internal Medicine; Visit Provider Internal Medicine | DX: I25.10 Atherosclerotic heart disease of native coronary artery without angina pectoris (principal); I10 Essential (primary) hypertension; I25.5 Ischemic cardiomyopathy; I71.40 Abdominal aortic aneurysm, without rupture, unspecified; F17.200 Nicotine dependence, unspecified, uncomplicated | CPT/HCPCS: 99214 ==

== ENCOUNTER 2023-02-28 11:44 | Outpatient (CLI) | payer MEDICARE, SELFPAY ==
--- NOTE | 2023-02-28 | MR_ITS ---
WS: [id number] MRI LUMBAR SPINE NONCONTRAST HISTORY: DEGENRATIVE DISC DISEASE COMPARISON: None available. TECHNIQUE: Sagittal and axial multisequence imaging is submitted. Degenerative S-shaped curvature of the lumbar spine. Severe narrowing of the disc spaces. Slight retr olisthesis of L2 and L3 exacerbated by rotation of the vertebral bodies. Disc spaces and vertebral body heights are well-preserved. Conus terminates normally at L1-2 disc level. T12-L1: Osteophytic ridging and scoliosis. Mild bilateral foraminal stenosis. L1-L2: Mild osteophytic ridging and annular disc bulging. Bilateral paracentral disc protrusions slig htly greater on the RIGHT. Mild central LEFT paracentral and foraminal stenosis. More moderate RIGHT subarticular recess and foraminal stenosis. There is encroachment upon the traversing L2 nerve root o n the RIGHT. L2-L3: Mild osteophytic ridging and annular disc bulging. Effacement of ventral CSF with moderate jaimie tral, bilateral subarticular recess and foraminal stenosis. L3-L4: Diffuse annular disc bulging, osteophytic ridging and facet arthritis. Moderate central, bilat eral subarticular recess and foraminal stenosis. Foramen stenosis greater on the LEFT. Disc and osteo phyte encroachment upon the exiting LEFT L3 nerve root. L4-L5: Diffuse annular disc bulging, marked ligamentum flavum and facet arthritis. Moderate central, bilateral subarticular recess and mild foraminal stenosis. L5-S1: Very shallow LEFT paracentral disc protrusion. No stenosis. Incompletely visualized abdominal aortic aneurysm. Previously described on 10/12/2022. Maximum diamete r identified today is 4.7 cm. RIGHT adrenal mass, previously described also. Described as a benign ad enoma. IMPRESSION: 1. Advanced degenerative scoliosis with degenerative disc disc, osteophyte and facet disease througho ut the lumbar spine. 2. L1-2: Moderate RIGHT subarticular recess and foraminal stenosis. Mild central, LEFT paracentral an d foraminal stenosis. 3. L2-3: Moderate central, bilateral subarticular recess and foraminal stenosis. 4. L3-4: Moderate central, bilateral subarticular recess and foraminal stenosis. Slightly greater xiang nosis LEFT foramen. 5. L4-5: Moderate central and bilateral subarticular recess stenosis with mild foraminal stenosis. 6. Abdominal aortic aneurysm and RIGHT adrenal adenoma have been recently described.
--- NOTE | 2023-02-28 12:09 | XR_ITS ---
WS: [id number] SCREENING DEXA SCAN [place] CLINICAL INFORMATION: Z78.0 COMPARISON: 2019 FINDINGS: The L1-L4 bone mineral density measures 1.354 g/cm2. This corresponds to a T score score of 1.4 and Z score of 1.9. Left femoral neck bone mineral density measures 0.779 g/cm2. This corresponds to a T score of -1.8 an d Z score of -1.3. Right femoral neck bone mineral density measures 0.772 g/cm2. This corresponds to a T score -1.9of an d Z score of -1.4. Mean femoral neck bone mineral density measures 0.775 g/cm2. This corresponds to a T score of -1.8 an d Z score of -1.3. IMPRESSION: Normal bone mineralization lumbar spine. Osteopenia femoral necks. Patient's FRAX calculated 10 year probability for major osteoporotic fracture is 29.5% and osteoporot ic hip fracture is 7.6%. Bone mineral density lumbar spine increased 6.5% likely spuriously elevated due to endplate sclerosis Bone mineral density femoral necks decreased -3.0%
== END 2023-02-28 11:45 | disposition home or self-care (01) ==
PROVIDERS: PCP Internal Medicine; Visit Provider Internal Medicine
DX: Z13.820 Encounter for screening for osteoporosis (principal); Z78.0 Asymptomatic menopausal state; M85.852 Other specified disorders of bone density and structure, left thigh; M85.851 Other specified disorders of bone density and structure, right thigh; M51.37 Other intervertebral disc degeneration, lumbosacral region; M48.061 Spinal stenosis, lumbar region without neurogenic claudication; I71.40 Abdominal aortic aneurysm, without rupture, unspecified; D35.01 Benign neoplasm of right adrenal gland
CPT/HCPCS: 72148; 77080

== ENCOUNTER → 2023-07-06 11:08 | Outpatient (BNVA) | payer MEDICARE, SELFPAY | PROVIDERS: PCP Internal Medicine; Visit Provider Internal Medicine | DX: R00.2 Palpitations (principal); I25.10 Atherosclerotic heart disease of native coronary artery without angina pectoris; I10 Essential (primary) hypertension; I25.5 Ischemic cardiomyopathy; Z79.01 Long term (current) use of anticoagulants; Z79.82 Long term (current) use of aspirin; F17.200 Nicotine dependence, unspecified, uncomplicated | CPT/HCPCS: 99214 ==

== ENCOUNTER 2024-11-13 20:24 | Emergency (ER) | payer MEDICARE, SELFPAY ==
[2024-11-13 20:25] VITALS: BP 170/103; PULSE 98; RESP 16; TEMP 36.4; O2SAT 93; BMI 32.4
--- OUTSIDE RECORDS SUMMARY | 2024-11-13 20:33 | XMS_ITS | Encounter Summary ---
Author Organization [facility] Address [address] [place] [address] Care Team Providers Care Screwdown Operator Name Role Phone Amie Emery MD Primary Care Provider +1- [phone] Encounter Details Date Type Department Care Team (Latest Contact Info) Description 10/04/[address] 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 Gender Identity Not on file Sexual Orientation Not on file documented as of this encounter Plan of Treatment Not on file documented as of this encounter Visit Diagnoses Diagnosis Subdural hemorrhage following injury, without mention of open intracranial wound, unspecified state of consciousness (CMS/HCC)- Primary Subdural hemorrhage following injury, without mention of open intracranial wound, unspecified state of consciousness Unspecified fall documented in this encounter Care Teams Screwdown Operator Relationship Specialty Start Date End Date Amie Emery MD [address] [place] [address] PCP - General Internal Medicine 12/20/18 documented as of this encounter
--- OUTSIDE RECORDS SUMMARY | 2024-11-13 20:33 | XMS_ITS | Encounter Summary ---
Author Organization [facility] Address [address] [place] [address] Care Team Providers Care Chainsaw Mechanic Name Role Phone Amie Emery MD Primary Care Provider +1- [phone] Encounter Details Date Type Department Care Team (Late st Contact Info) Description 10/01/2006 Outpatient Historical [facility] [address] [place] [address] Kristopher Armando MD NO ADDRESS ON FILE Social History Tobacco Use Types Packs/Day Years Used Date Smoking Tobacco: Never Assessed Comments Unknown Sex and Gender Information Value Date Recorded Sex Assigned at Not on file 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 Gender Identity Not on file Sexual Orientation Not on file documented as of this encounter Plan of Treatment Not on file documented as of this encounter Procedures Procedure Name Priority Date/Time Associated Diagnosis Comments CT SINUS FACIAL BONES WO CONTRAST Routine 10/01/2006 1:[address] HEAD WO CONTRAST Routine 10/01/2006 1 :16 AM CDT documented in this encounter Results * CT SINUS FACIAL BONES WO CONTRAST (10/01/2006 1:16 AM CDT) Anatomical Region Laterality Modality Head Other 10/01/2006 1:16 AM CDT Narrative 10/01/2006 1:16 AM CDT A fracture is present through the left orbital floor. Minimal dehiscence and diastases is present. No herniation of intraorbital contents is present. The lamina papyracea appear to be intact. The intraorbital soft tissues are unremarkable. The orbitalrims are intact. Some arthritic changes of the TMJs appear to be present. Impression: Orbital floor fracture with minimal diastases. - Dictated By: Asim Bullock M.D. Electronically Signed By: Asim Bullock M.D. Date Signed: 10/01/06 Procedure Note 03/21/2009 A fracture is present through the left orbital floor. Minimal dehiscenceand diastases is present. No herniation of intraorbital contents is present. The lamina papyracea appear to be intact. The intraorbital soft tissuesare unremarkable. The orbitalrims are intact. Some arthritic changes of the TMJs appear to be present. Impression: Orbital floor fracture with minimal diastases. - Dictated By: Asim Bullock M.D. Electronically Signed By: Asim Bullock M.D. Date Signed: 10/01/[address] ORDERABLES Final Result * CT HEAD WO CONTRAST (10/01/2006 1:16 AM CDT) Anatomical Region Laterality Modality Head Other 10/01/2006 1:16 AM CDT Narrative 10/01/2006 1:16 AM CDT Fracture through the left orbital floor and medial wall is suspected. The calvarium and skull baseappear to be intact. Some blood is present in the subarachnoid spaces over the left frontalconvexity. The brain is otherwise unremarkable in appearance. Impression: Mild subarachnoid hemorrhage the left frontal lobe. Apparent left orbital fractures. - Dictated By: Asim Bullock M.D. Electronically Signed By: Asim Bullock M.D. Date Signed: 10/01/06 Procedure Note 03/21/2009 Fracture through the left orbital floor and medial wall is suspected. Thecalvarium and skull baseappear to be intact. Some blood is present in the subarachnoid spaces over theleft frontalconvexity. The brain is otherwise unremarkable in appearance. Impression: Mild subarachnoid hemorrhage the left frontal lobe. Apparent left orbitalfractures. - Dictated By: Asim Bullock M.D. Electronically Signed By: Asim Bullock M.D. Date Signed: 10/01/[address] ORDERABLES Final Result documented in this encounter Visit Diagnoses Not on filedocumented in this encounter Care Teams Chainsaw Mechanic Relationship Specialty Start Date End Date Amie Emery MD [address] [place] [address] PCP - General Internal Medicine 12/20/18 documented as of this encounter
--- OUTSIDE RECORDS SUMMARY | 2024-11-13 20:33 | XMS_ITS | Encounter Summary ---
Author Organization [facility] Address [address] [place] [address] Care Team Providers Care Dressed Poultry Grader Name Role Phone Amie Emery MD Primary Care Provider +1- [phone] Encounter Details Date Type Department Care Team (Latest Contact Info) Description 12/01/2006 Outpatient Historical [facility] Endocrinology-[place] [address] [place] [address] Kristopher Armando MD NO ADDRESS ON FILE DM w/o Complication Type II (CMS/HCC) (Primary Dx) Social History Tobacco Use Types Packs/Day Years Used Date Smoking Tobacco: Never Assessed Comments Unknown Sex and Gender Information Value Date Recorded Sex Assigned at Not on file 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
--- OUTSIDE RECORDS SUMMARY | 2024-11-13 20:33 | XMS_ITS | Encounter Summary ---
Author Organization [facility] Address [address] [place] [address] Care Team Providers Care Germ Drier Name Role Phone Amie Emery MD Primary Care Provider +1- [phone] Encounter Details Date Type Department Care Team (Late st Contact Info) Description 10/01/2006 Emergency [facility] Emergency Department [address] 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 Gender Identity Not on file Sexual Orientation Not on file documented as of this encounter Plan of Treatment Not on file documented as of this encounter Procedures Procedure Name Priority Date/Time Associated Diagnosis Comments CBC WITH DIFFERENTIAL Routine 10/01/2006 1:42 AM CDT BASIC METABOLIC PANEL Routine 10/01/2006 1:42 AM CDT documented in this encounter Results * (ABNORMAL) BASIC METABOLIC PANEL (10/01/2006 1:42 AM CDT) GLUCOSE 165(H) 70 - 110 mg/dL INTERFACE SYSTEM BUN 14 7 - 17 mg/dL INTERFACE SYSTEM CREATININE 0.9 0.7 - 1.2 mg/dL INTERFACE SYSTEM SODIUM 141 136 - 145 mEq/L INTERFACE SYSTEM POTASSIUM 3.2(L) 3.5 - 5.0 mEq/L INTERFACE SYSTEM CHLORIDE 107 95 - 110 mEq/L INTERFACE SYSTEM CO2 30 22 - 32 mmol/l INTERFACE SYSTEM CALCIUM 9.9 8.4 - 10.5 mg/dL INTERFACE SYSTEM ANION GAP 7(L) 9 - 20 mEq/L INTERFACE SYSTEM OSMOLALITY, CALCULATED 292 275 - 295 mOsm/Kg INTERFACE SYSTEM 10/01/2006 1:42 AM CDT Brandon Lux Jessy III, DO CHEMISTRY ORDERABLES Ed ited INTERFACE SYSTEM Refer to clinic/hospital department * (ABNORMAL) CBC WITH DIFFERENTIAL (10/01/2006 1:42 AM CDT) WBC 10.8 4.8 - 10.8 K/ul INTERFACE SYSTEM RBC 4.26 4.20 - 5.40 Mil/ul INTERFACE SYSTEM HEMOGLOBIN 15.0 12.0 - 16.0 g/dL INTERFACE SYSTEM HEMATOCRIT 43.1 36.0 - 46.0 % INTERFACE SYSTEM MCV 101.2 84.0 - 103.0 Fl INTERFACE SYSTEM MCH 35.2(H) 27.0 - 34.0 pg INTERFACE SYSTEM MCHC 34.8 30.0 - 35.0 g/dL INTERFACE SYSTEM RDW 13.0 11.0 - 14.5 % INTERFACE SYSTEM PLATELETS 211 140 - 440 K/ul INTERFACE SYSTEM MPV 10.1 8.9 - 12.8 Fl INTERFACE SYSTEM NEUTROPHILS 65.5 42.2 - 75.2 % INTERFACE SYSTEM LYMPHOCYTES 21.2(L) 24.0 - 44.0 % INTERFACE SYSTEM MONOCYTES 8.7 2.0 - 10.0 % INTERFACE SYSTEM EOSINOPHILS 4.3 0.0 - 7.0 % INTERFACE SYSTEM BASOPHILS 0.3 0.0 - 1.0 % INTERFACE SYSTEM NEUTROPHIL ABSOLUTE 7.1 2.0 - 8.0 K/ul INTERFACE SYSTEM LYMPHOCYTE ABSOLUTE 2.3 1.2 - 4.0 K/ul INTERFACE SYSTEM MONOCYTE ABSOLUTE 0.9(H) 0.1 - 0.6 K/ul INTERFACE SYSTEM EOSINOPHIL ABSOLUTE 0.5 0.0 - 0.7 K/ul INTERFACE SYSTEM BASOPHILS ABSOLUTE 0.0 0.0 - 0.2 K/ul INTERFACE SYSTEM 10/01/2006 1:42 AM CDT Brandon Jiménez III, DO HEMATOLOGY ORDERABLES E dited INTERFACE SYSTEM Refer to clinic/hospital department documented in this encounter Visit Diagnoses Diagnosis Syncope and collapse- Primary documented in this encounter Care Teams Germ Drier Relationship Specialty Start Date End Date Amie Emery MD [address] [place] [address] PCP - General Internal Medicine 12/20/18 documented as of this encounter
--- OUTSIDE RECORDS SUMMARY | 2024-11-13 20:33 | XMS_ITS | Encounter Summary ---
Author Organization [facility] Address [address] [place] [address] Care Team Providers Care Iron Handler Name Role Phone Amie Emery MD Primary Care Provider +1- [phone] Encounter Details Date Type Department Care Team (Late st Contact Info) Description 06/04/2007 Outpatient Historical [facility] Rheumatology- Jw Chung [place] [address] [place] [address] Atul Brooks, [address] [facility] [address] [place] [address] Social History Tobacco Use Types Packs/Day Years Used Date Smoking Tobacco: Never Assessed Comments Unknown Sex and Gender Information Value Date Recorded Sex Assigned at Not on file Legal Sex Female 6:22 AM LOG CARRIER OPERATOR Gender Identity Not on file Sexual Orientation Not on file documented as of this encounter Consult Notes * Atul Brooks DO - 06/04/2007 12:00 AM CST Patient Name: Jessa Escalera DOS: 06/04/2007 : 1955 CONSULTATION REQUESTING PHYSICIAN: Marc Brown M.D. VITALS: Weight: 204.0 pounds. Pulse: 80. BP: 120/70. Temperature 97.9, height 61 inches. REASON FOR CONSULTATION: Chronic joint and muscle pain. SUBJECTIVE: On June 04, 2007, I saw your pleasant patient for a comprehensive rheumatologic consultation. Ms. Escalera is a 52-year-old female with a history of type 2 diabetes mellitus, essential hypertension, and advanced coronary artery disease with previous myocardial infarction lastyear in requirement for intracoronary stent placement who presents to the office today with at least a 5-year history of generalized myalgia and some arthralgia. She indicates that she apparently wasdiagnosed 5 years ago as having fibromyalgia when evaluated by Dr. Morales. She specifically recalls having been told that she had 18 of 18 fibromyalgia tender points present. Apparently, the diagnosis of fibromyalgia was also confirmed by Dr. Carla Martinez whom she does see for a history of migraine headache. She describes the sensation of being hit by a freight train and describes pain extending from head down to her toes. She feels quite stiff when she awakens in the morning especially inher joints. Her muscular pain generally does not seem to improve throughout the day. She notes her symptoms do seem to be worse when a cold front moves through the area. She had taken Ultracet as an analgesic agent for a period of 3 years, but really never had good analgesic effects with the use ofthis medication. She was tried on Flexeril 10 mg twice daily, but it did not seem to benefit. Last month was given Lyrica by Dr. Martinez, but apparently this caused problems with excessive sedationand a 10-pound undesirable weight gain and was subsequently discontinued. She does not seem to report any problems with alopecia, malar rash, photosensitivity, or chronic joint swelling. She has beentested for hepatitis in the past and has been nonreactive. She has been told over the last 5 years that she has some evidence of abnormal liver enzymes and it appears from available chart records that this might be an isolated elevation alkaline phosphatase. She does not seem to describe any generalized skin pruritus. PAST MEDICAL HISTORY: Past medical history as noted above. PAST SURGICAL HISTORY: She needed right shoulder open reduction internal fixation following a traumatic fracture. She has also had right knee surgery performed. She has had 2 intracoronary stents placed. She had left adrenal gland removal and cholecystectomy, as well as bilateral tubal ligation. CURRENT MEDICATIONS: Lipitor was recently started last month. Prior to that, had not been on any cholesterol-lowering medication. Additionally, she takes Norvasc 10 mg daily, potassium chloride 10 mEq b.i.d., Coreg 12.5 mg 2 daily, Prozac 20 mg daily, Lasix 40 mg daily, metformin 500 mg b.i.d., Plavix 75 mg a day, aspirin 325 mg daily, Byetta 10 mcg injection twice daily, and omega-3 fish oil 1,000 mg daily, in addition to Vitamin C and a daily multivitamin. ALLERGIES: PENICILLIN, SULFONAMIDE-CONTAINING ANTIBIOTICS, ERYTHROMYCIN, CEPHALOSPORINS AND ANAPROX. SOCIAL HISTORY: The patient is single and has 2 grown children. She indicates that she is disabled.Despite her history of diabetes mellitus and advanced coronary artery disease, she continues to smoke, though indicates she has reduced her consumption of tobacco down to 3 packs per day to 1 pack per day following the use of Chantix. She does drink occasionally on weekends. FAMILY HISTORY: Father of complications of diabetic-related renal failure at the age of 61. Her mother is in good health at the age of 68. REVIEW OF SYSTEMS: See history of present illness, otherwise generally unremarkable or noncontributory to our questionnaire. PHYSICAL EXAMINATION: GENERAL: A pleasant 52-year-old mildly obese female unaccompanied to examination room. HEENT: Hair is thick. No malar rash or periorbital rash was noted. SKIN: Large tattoo is noted on the left upper anterior chest wall. No evidence of abnormal nail fold, telangiectasia, skin thickening, sclerodactyly, overgrowth or evidence of rash that would suggestacute, subacute or discord lupus, papules or plaques being present. No skin or nail psoriasis. No palpable subcutaneous nodules are felt. MUSCULOSKELETAL: She has no evidence of active joint tenosynovitis or chronic joint deformity. She does have greater than 11 of 18 positive fibromyalgia tender points. NEUROLOGIC: Neuromuscular, no anterior proximal muscle weakness, neck flexor, deltoid or hip flexormuscle groups. She has no evident distal muscle weakness either in the hands, ankles, or feet. LABORATORY REVIEW: Dated April 26, 2007, glucose of 144, BUN 13, creatinine 0.8, cholesterol 221with triglycerides of 449. Calcium of 9.1, alkaline phosphatase of 196, AST of 20, potassium of 4. Lab dated March 12, 2007, liver panel with elevation alkaline phosphatase at 179, otherwise all within normal range. DIAGNOSTIC IMPRESSION: 1. Chronic generalized musculoskeletal pain with significant component of myalgia that clearly developed before the start of lipid-lowering therapy. History and examination findings would strongly support a diagnosis of fibromyalgia as the likely cause of her symptomatology. 2. History of persistent elevation of alkaline phosphatase with differential diagnostic consideration to include possibility of Vitamin D deficiency causing osteomalacia and generalized bone and muscle pain or even possibly 2 [place], [place] PATIENT NAME: Jessa Escalera DATE OF SERVICE: 06/04/2007 DATE OF : 1955 Patient Name: Jessa Escalera DOS: 06/04/2007 : 1955 CONSULTATION REQUESTING PHYSICIAN: Marc Brown M.D. VITALS: Weight: 204.0 pounds. Pulse: 80. BP: 120/70. Temperature 97.9, height 61 inches. REASON FOR CONSULTATION: Chronic joint and muscle pain. SUBJECTIVE: On June 04, 2007, I saw your pleasant patient for a comprehensive rheumatologic consultation. Ms. Escalera is a 52-year-old female with a history of type 2 diabetes mellitus, essential hypertension, and advanced coronary artery disease with previous myocardial infarction lastyear in requirement for intracoronary stent placement who presents to the office today with at least a 5-year history of generalized myalgia and some arthralgia. She indicates that she apparently wasdiagnosed 5 years ago as having fibromyalgia when evaluated by Dr. Morales. She specifically recalls having been told that she had 18 of 18 fibromyalgia tender points present. Apparently, the diagnosis of fibromyalgia was also confirmed by Dr. Carla Martinez whom she does see for a history of migraine headache. She describes the sensation of being hit by a freight train and describes pain extending from head down to her toes. She feels quite stiff when she awakens in the morning especially inher joints. Her muscular pain generally does not seem to improve throughout the day. She notes her symptoms do seem to be worse when a cold front moves through the area. She had taken Ultracet as an analgesic agent for a period of 3 years, but really never had good analgesic effects with the use ofthis medication. She was tried on Flexeril 10 mg twice daily, but it did not seem to benefit. Last month was given Lyrica by Dr. Martinez, but apparently this caused problems with excessive sedationand a 10-pound undesirable weight gain and was subsequently discontinued. She does not seem to report any problems with alopecia, malar rash, photosensitivity, or chronic joint swelling. She has beentested for hepatitis in the past and has been nonreactive. She has been told over the last 5 years that she has some evidence of abnormal liver enzymes and it appears from available chart records that this might be an isolated elevation alkaline phosphatase. She does not seem to describe any generalized skin pruritus. PAST MEDICAL HISTORY: Past medical history as noted above. PAST SURGICAL HISTORY: She needed right shoulder open reduction internal fixation following a traumatic fracture. She has also had right knee surgery performed. She has had 2 intracoronary stents placed. She had left adrenal gland removal and cholecystectomy, as well as bilateral tubal ligation. CURRENT MEDICATIONS: Lipitor was recently started last month. Prior to that, had not been on any cholesterol-lowering medication. Additionally, she takes Norvasc 10 mg daily, potassium chloride 10 mEq b.i.d., Coreg 12.5 mg 2 daily, Prozac 20 mg daily, Lasix 40 mg daily, metformin 500 mg b.i.d., Plavix 75 mg a day, aspirin 325 mg daily, Byetta 10 mcg injection twice daily, and omega-3 fish oil 1,000 mg daily, in addition to Vitamin C and a daily multivitamin. ALLERGIES: PENICILLIN, SULFONAMIDE-CONTAINING ANTIBIOTICS, ERYTHROMYCIN, CEPHALOSPORINS AND ANAPROX. SOCIAL HISTORY: The patient is single and has 2 grown children. She indicates that she is disabled.Despite her history of diabetes mellitus and advanced coronary artery disease, she continues to smoke, though indicates she has reduced her consumption of tobacco down to 3 packs per day to 1 pack per day following the use of Chantix. She does drink occasionally on weekends. FAMILY HISTORY: Father of complications of diabetic-related renal failure at the age of 61. Her mother is in good health at the age of 68. REVIEW OF SYSTEMS: See history of present illness, otherwise generally unremarkable or noncontributory to our questionnaire. PHYSICAL EXAMINATION: GENERAL: A pleasant 52-year-old mildly obese female unaccompanied to examination room. HEENT: Hair is thick. No malar rash or periorbital rash was noted. SKIN: Large tattoo is noted on the left upper anterior chest wall. No evidence of abnormal nail fold, telangiectasia, skin thickening, sclerodactyly, overgrowth or evidence of rash that would suggestacute, subacute or discord lupus, papules or plaques being present. No skin or nail psoriasis. No palpable subcutaneous nodules are felt. MUSCULOSKELETAL: She has no evidence of active joint tenosynovitis or chronic joint deformity. She does have greater than 11 of 18 positive fibromyalgia tender points. NEUROLOGIC: Neuromuscular, no anterior proximal muscle weakness, neck flexor, deltoid or hip flexormuscle groups. She has no evident distal muscle weakness either in the hands, ankles, or feet. LABORATORY REVIEW: Dated April 26, 2007, glucose of 144, BUN 13, creatinine 0.8, cholesterol 221with triglycerides of 449. Calcium of 9.1, alkaline phosphatase of 196, AST of 20, potassium of 4. Lab dated March 12, 2007, liver panel with elevation alkaline phosphatase at 179, otherwise all within normal range. DIAGNOSTIC IMPRESSION: 1. Chronic generalized musculoskeletal pain with significant component of myalgia that clearly developed before the start of lipid-lowering therapy. History and examination findings would strongly support a diagnosis of fibromyalgia as the likely cause of her symptomatology. 2. History of persistent elevation of alkaline phosphatase with differential diagnostic consideration to include possibility of Vitamin D deficiency causing osteomalacia and generalized bone and muscle pain or even possibly Paget's disease. 3. History of type 2 diabetes mellitus. 4. History of obesity with good sustained weight loss, possibly as a related effect with the use ofByetta. 5. History of advanced coronary artery disease, status post myocardial infarction with intracoronary stent placement. 6. Nicotine dependency. RECOMMENDATIONS: 1. I have suggested a retrial of cyclobenzaprine, but would prefer dosing 20-30 mg bedtime to see if this helps with fibromyalgia-related musculoskeletal pain and also improve restorative sleep whichcertainly seems to be lacking based upon her history. If cyclobenzaprine is not completely effective, then one could consider the utilization of low-dose trazodone 25 to 100 mg bedtime dosing, desipramine 10 to 50 mg bedtime dosing. I would question her regarding her previous dose of Topamax, although apparently, she also did experience undesirable weight gain on this medication which is somewhatsurprising since it generally is associated with an appetite suppressant effect and associated weigh t loss. 2. The patient provided written literature regarding fibromyalgia. 3. At this point, no indication for further routine rheumatologic follow up based upon noninflammatory findings of suspected fibromyalgia. She has persistent elevation alkaline phosphatase, then I would suggest checking 25 hydroxy Vitamin D level to rule out Vitamin D deficiency, and possible screen of an alkaline phosphatase isoenzyme or 5 primed nucleotidase level to help differentiate liver versus possible osseous etiology of this serum enzyme finding. 4. Thank you again for letting me participate in the care of your pleasant patient. A copy of this consult was sent to Marc Brown M.D. Atul Brooks D.O., .A.C.R. Rheumatology Electronically Signed by Atul Brooks D.O. 06/18/2007 11:41 , A, raymundo Document #: [id number] cc: Marc Brown M.D. CARRIER OPERATOR documented in this encounter Plan of Treatment Not on file documented as of this encounter Visit Diagnoses Not on filedocumented in this encounter Care Teams Iron Handler Relationship Specialty Start Date End Date Amie Emery MD [address] [place] [address] PCP - General Internal Medicine 12/20/18 documented as of this encounter
--- OUTSIDE RECORDS SUMMARY | 2024-11-13 20:33 | XMS_ITS | Encounter Summary ---
Author Organization [facility] Address [address] [place] [address] Care Team Providers Care Dupligraph Operator Name Role Phone VirgilRosemary mccall Primary Care Provider [phone] Encounter Details Date Type Department Care Team (Late st Contact Info) Description 03/13/2024 Telephone [facility] Cancer and Hematology [place] [address] [facility] [facility] [address] [place] [address] Greg Corona MD [address] [place] [address] Social History Tobacco Use Types Packs/Day Years Used Date Smoking Tobacco: Every Day Cigarettes Passive Smoke Exposure: Current Smokeless Tobacco: Former Alcohol Use Standard Drinks/Week Comments Not Currently 0 (1 standard drink = 0.6 oz pur e alcohol) Comments No Sex and Gender Information Value Date Recorded Sex Assigned at Not on file Legal Sex Female 1:22 PM DATA CAPTURE SPECIALIST Gender Identity Not on file Sexual Orientation Not on file documented as of this encounter Miscellaneous Notes * Telephone Encounter - Herminia Samson - 03/13/2024 3:23 PM CST I tried to call Jessa a couple of times to see if she was ready for her Video Visit and no answerboth times and I left a message for her. CAPTURE SPECIALIST documented in this encounter Plan of Treatment Upcoming Encounters Date Type Department Care Team (Late st Contact Info) Description 01/13/2025 10:20 AM CDT Office Visit [facility] [address] [facility] [place] [id number] Art Buchanan Dick, NAIL TECHNICIAN [address] [facility] [place] [id number] 03/19/2025 8:40 AM DATA CAPTURE SPECIALIST Office Visit [facility] [address] [facility] [place] [phone] Rosemary Herman DO [address] [place] [id number] documented as of this encounter Visit Diagnoses Not on filedocumented in this encounter Additional Health Concerns Infection Onset Date Last Indicated Resolved Time R/O C. diff 02/28/2024 02/28/2024 03/27/2024 10:1 3 AM DATA CAPTURE SPECIALIST R/O COVID-19 03/26/2024 03/26/2024 03/26/2024 8:51 AM DATA CAPTURE SPECIALIST R/O COVID-19 03/26/2024 03/26/2024 03/26/2024 9:14 AM DATA CAPTURE SPECIALIST documented as of this encounter Care Teams Dupligraph Operator Relationship Specialty Start Date End Date Rosemary Herman DO [address] [place] [address] PCP - General Family Practice 12/22/23 documented as of this encounter
--- OUTSIDE RECORDS SUMMARY | 2024-11-13 20:33 | XMS_ITS | Encounter Summary ---
Author Organization [facility] Address [address] [place] [address] Care Team Providers Care Microelectronics Engineer Name Role Phone Amie Emery MD Primary Care Provider [phone]- [phone] Encounter Details Date Type Department Care Team (Latest Contact Info) Description 10/06/2006 Outpatient Historical [facility] [address] [place] [address] Yasmany Sanchez MD NO ADDRESS ON FILE Other Facial Bones, Closed Fracture (CMS/HCC) (Primary Dx) Social History Tobacco Use Types Packs/Day Years Used Date Smoking Tobacco: Never Assessed Comments Unknown Sex and Gender Information Value Date Recorded Sex Assigned at Not on file Legal Sex Female 6:22 AM PMO PROJECT MANAGER Gender Identity Not on file Sexual Orientation Not on file documented as of this encounter Plan of Treatment Not on file documented as of this encounter Visit Diagnoses Diagnosis Other facial bones, closed fracture- Primary documented in this encounter Care Teams Microelectronics Engineer Relationship Specialty Start Date End Date Amie Emery MD [address] [place] [address] PCP - General Internal Medicine 12/20/18 documented as of this encounter
--- OUTSIDE RECORDS SUMMARY | 2024-11-13 20:33 | XMS_ITS | Encounter Summary ---
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) Social History Tobacco Use Types Packs/Day Years Used Date Smoking Tobacco: Never Assessed Comments Unknown Sex and Gender Information Value Date Recorded Sex Assigned at Not on file Legal Sex Female 6:22 AM DISTRIBUTION LEAD Gender Identity Not on file Sexual Orientation Not on file documented as of this encounter Plan of Treatment Not on file documented as of this encounter Visit Diagnoses Diagnosis 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
--- OUTSIDE RECORDS SUMMARY | 2024-11-13 20:33 | XMS_ITS | Encounter Summary ---
Author Organization [facility] Address [address] [place] [address] Care Team Providers Care Lockstitch Shoulder Joiner Name Role Phone Amie Emery MD Primary Care Provider [phone]- [phone] Encounter Details Date Type Department Care Team (Latest Contact Info) Description 03/08/2004 Outpatient Historical [facility] Cardiac [employer] [address] [place] [address] Tone Monae MD NO ADDRESS ON FILE CORON ATHEROSCL [place] CORON VESSEL (Primary Dx) Social History Tobacco Use Types Packs/Day Years Used Date Smoking Tobacco: Never Assessed Comments Unknown Sex and Gender Information Value Date Recorded Sex Assigned at Not on file Legal Sex Female 6:22 AM ATTENDING AMBULATORY CARE Gender Identity Not on file Sexual Orientation Not on file documented as of this encounter Plan of Treatment Not on file documented as of this encounter Visit Diagnoses Diagnosis Coronary atherosclerosis of beaver coronary artery- Primary documented in this encounter Care Teams Lockstitch Shoulder Joiner Relationship Specialty Start Date End Date Amie Emery MD [address] [place] [address] PCP - General Internal Medicine 12/20/18 documented as of this encounter
--- OUTSIDE RECORDS SUMMARY | 2024-11-13 20:33 | XMS_ITS | Encounter Summary ---
Author Organization [facility] Address [address] [place] [address] Care Team Providers Care Nuclear Physician Name Role Phone Amie Emery MD Primary Care Provider [phone]- [phone] Encounter Details Date Type Department Care Team (Late st Contact Info) Description 08/31/2006 Outpatient Historical [facility] [address] [place] [address] Kristopher Armando MD NO ADDRESS ON FILE Social History Tobacco Use Types Packs/Day Years Used Date Smoking Tobacco: Never Assessed Comments Unknown Sex and Gender Information Value Date Recorded Sex Assigned at Not on file Legal Sex Female 6:22 AM COMMUNICATION STUDIES PROFESSOR Gender Identity Not on file Sexual Orientation Not on file documented as of this encounter Plan of Treatment Not on file documented as of this encounter Visit Diagnoses Not on filedocumented in this encounter Care Teams Nuclear Physician Relationship Specialty Start Date End Date Amie Emery MD [address] [place] [id number] PCP - General Internal Medicine 12/20/18 documented as of this encounter
--- OUTSIDE RECORDS SUMMARY | 2024-11-13 20:33 | XMS_ITS | Encounter Summary ---
Author Organization [facility] Address [address] [place] [address] Care Team Providers Care Systems Software Designer Name Role Phone Rosemary Herman Primary Care Provider Encounter Details Date Type Department Care Team (Latest Contact Info) Description 09/19/2024 Results Follow-Up [facility] Cancer and Hematology [place] [address] [facility] [address] [place] [address] Greg Corona MD [address] [place] [address] COMPREHENSIVE METABOLIC PANEL, PROTEIN/CREATININE RATIO, URINE, CEA Social History Tobacco Use Types Packs/Day Years Used Date Smoking Tobacco: Every Day Cigarettes Passive Smoke Exposure: Current Smokeless Tobacco: Former Alcohol Use Standard Drinks/Week Comments Not Currently 0 (1 standard drink = 0.6 oz pur e alcohol) Comments No Sex and Gender Information Value Date Recorded Sex Assigned at Not on file Legal Sex Female 1:22 PM GAS DISTRIBUTION SUPERVISOR Gender Identity Not on file Sexual Orientation Not on file documented as of this encounter Miscellaneous Notes * Result Encounter Note - Greg Corona MD - 09/19/2024 10:09 AM CDT CEA is trending down documented in this encounter Plan of Treatment Upcoming Encounters Date Type Department Care Team (Late st Contact Info) Description 01/13/2025 10:20 AM CDT Office Visit [facility] [address] [place] [address] Art Buchanan, PACKER INSPECTOR [address] [place] [phone] 03/19/2025 8:40 AM GAS DISTRIBUTION SUPERVISOR Office Visit [facility] [address] [place] [address] Rosemary Herman DO [address] [place] [address] documented as of this encounter Visit Diagnoses Not on filedocumented in this encounter Care Teams Systems Software Designer Relationship Specialty Start Date End Date Rosemary Herman DO [address] [place] [phone] PCP - General Family Practice 12/22/23 documented as of this encounter
--- OUTSIDE RECORDS SUMMARY | 2024-11-13 20:33 | XMS_ITS | Encounter Summary ---
Author Organization [facility] Address [address] [place] [address] Care Team Providers Care Substitute Teacher Name Role Phone Amie Emery MD Primary Care Provider +1- [phone] Encounter Details Date Type Department Care Team (Late st Contact Info) Description 07/19/2006 Inpatient Historical HIS IN BED Ravin Higgins MD NO ADDRESS ON FILE Coronary Atherosclerosis of 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 Gender Identity Not on file Sexual Orientation Not on file documented as of this encounter Plan of Treatment Not on file documented as of this encounter Procedures Procedure Name Priority Date/Time Associated Diagnosis Comments POC GLUCOSE Routine 07/20/2006 5:35 AM CDT POC GLUCOSE Routine 07/19/2006 3:11 PM CDT POC ACTIVATED CLOTTING TIME Routine 07/19/2006 3:11 PM CDT PT AND APTT Routine 07/19/2006 10:00 AM CDT CBC WITHOUT DIFFERENTIAL Routine 07/19/2006 10:00 AM CDT BASIC METABOLIC PANEL Routine 07/19/2006 10:00 AM CDT documented in this encounter Results * (ABNORMAL) POC GLUCOSE (07/20/2006 5:35 AM CDT) GLUCOSE POC 145(H) 60 - 100 mg/dL INTERFACE SYSTEM 07/20/2006 5:35 AM CDT us Ravin Higgins MD POINT OF CARE TESTING Edited Performing Organization Address City/[facility] de Phone Number INTERFACE SYSTEM Refer to clinic/hospital department * POC ACTIVATED CLOTTING TIME (07/19/2006 3:11 PM CDT) ACT POC 141 79 - 149 sec INTERFACE SYSTEM 07/19/2006 3:11 PM CDT us Ravin Higgins MD POINT OF CARE TESTING Edited Performing Organization Address [facility] de Phone Number INTERFACE SYSTEM Refer to clinic/hospital department * (ABNORMAL) POC GLUCOSE (07/19/2006 3:11 PM CDT) GLUCOSE POC 203(H) 60 - 100 mg/dL INTERFACE SYSTEM 07/19/2006 3:11 PM CDT us Ravin Higgins MD POINT OF CARE TESTING Edited Performing Organization Address [facility] Phone Number INTERFACE SYSTEM Refer to clinic/hospital department * PT AND APTT (07/19/2006 10:00 AM CDT) PROTIME 13.9 13.0 - 15.7 Secs INTERFACE SYSTEM Comment: As of 06 note change in normal range. INR 1.0 INTERFACE SYSTEM Comment: Expected Values for INR: DVT/PE Goal INR 2.5; range 2.0 - 3.0 Valve Replacement Tissue Goal INR 2.5; range 2.0 - 3.0 Mechanical Goal INR 3.0; range 2.5 - 3.5 POST-NJ Goal INR 2.5; range 2.0 - 3.0 or Goal 3.0; range 2.5 - 3.5 Atrial Fibrillation Goal INR 2.5; range 2.0 - 3.0 Ischemic Stroke Goal INR 2.5; range 2.0 - 3.0 For additional information see Guidelines for Anticoagulation available from the pharmacy Gabriela Ding. PTT 25.7 21.6 - 35.6 Secs INTERFACE SYSTEM Comment: Therapeutic Range: Hi-level PE/DVT heparin protocol 80.1 -95.0 sec Lo-level PE/DVT heparin protocol 67.1 - 80.0 sec Cardiac Heparin Protocol 67.1 - 85.0 sec Neuro Heparin Protocol 67.1 - 80.0 sec As of 04/06/2006 note change in APTT Normal Range. 07/19/2006 10:0 0 AM CDT us Ravin iHggins MD HEMATOLOGY ORDERABLES Edited INTERFACE SYSTEM Refer to clinic/hospital department * (ABNORMAL) CBC WITHOUT DIFFERENTIAL (07/19/2006 10:00 AM CDT) WBC 12.5(H) 4.8 - 10.8 K/ul INTERFACE SYSTEM RBC 4.29 4.20 - 5.40 Mil/ul INTERFACE SYSTEM HEMOGLOBIN 15.3 12.0 - 16.0 g/dL INTERFACE SYSTEM HEMATOCRIT 43.5 36.0 - 46.0 % INTERFACE SYSTEM MCV 101.4 84.0 - 103.0 Fl INTERFACE SYSTEM MCH 35.7(H) 27.0 - 34.0 pg INTERFACE SYSTEM MCHC 35.2(H) 30.0 - 35.0 g/dL INTERFACE SYSTEM RDW 13.7 11.0 - 14.5 % INTERFACE SYSTEM PLATELETS 254 140 - 440 K/ul INTERFACE SYSTEM MPV 10.0 8.9 - 12.8 Fl INTERFACE SYSTEM NEUTROPHILS 57.5 42.2 - 75.2 % INTERFACE SYSTEM LYMPHOCYTES 29.7 24.0 - 44.0 % INTERFACE SYSTEM MONOCYTES 9.4 2.0 - 10.0 % INTERFACE SYSTEM EOSINOPHILS 3.0 0.0 - 7.0 % INTERFACE SYSTEM BASOPHILS 0.4 0.0 - 1.0 % INTERFACE SYSTEM NEUTROPHIL ABSOLUTE 7.2 2.0 - 8.0 K/uL INTERFACE SYSTEM LYMPHOCYTE ABSOLUTE 3.7 1.2 - 4.0 K/ul INTERFACE SYSTEM MONOCYTE ABSOLUTE 1.2(H) 0.1 - 0.6 K/ul INTERFACE SYSTEM EOSINOPHIL ABSOLUTE 0.4 0.0 - 0.7 K/ul INTERFACE SYSTEM BASOPHILS ABSOLUTE 0.1 0.0 - 0.2 K/ul INTERFACE SYSTEM 07/19/2006 10:0 0 AM CDT Ravin Higgins MD HEMATOLOGY ORDERABLES Edited Performing Organization Address [facility] de Phone Number INTERFACE SYSTEM Refer to clinic/hospital department * (ABNORMAL) BASIC METABOLIC PANEL (07/19/2006 10:00 AM CDT) GLUCOSE 149(H) 70 - 110 mg/dL INTERFACE SYSTEM BUN 13 7 - 17 mg/dL INTERFACE SYSTEM CREATININE 1.0 0.7 - 1.2 mg/dL INTERFACE SYSTEM SODIUM 140 136 - 145 mEq/L INTERFACE SYSTEM POTASSIUM 4.2 3.5 - 5.0 mEq/L INTERFACE SYSTEM CHLORIDE 104 95 - 110 mEq/L INTERFACE SYSTEM CO2 26 22 - 32 mmol/l INTERFACE SYSTEM CALCIUM 10.4 8.4 - 10.5 mg/dL INTERFACE SYSTEM ANION GAP 14 9 - 20 mEq/L INTERFACE SYSTEM OSMOLALITY, CALCULATED 291 275 - 295 mOsm/Kg INTERFACE SYSTEM 07/19/2006 10:0 0 AM CDT Ravin Higgins MD CHEMISTRY ORDERABLES Edited Performing Organization Address [facility] de Phone Number INTERFACE SYSTEM Refer to clinic/hospital department documented in this encounter Visit Diagnoses Diagnosis Coronary atherosclerosis of [place] coronary artery- Primary documented in this encounter Care Teams Substitute Teacher Relationship Specialty Start Date End Date Amie Emery MD [address] [place] [id number] PCP - General Internal Medicine 12/20/18 documented as of this encounter
--- OUTSIDE RECORDS SUMMARY | 2024-11-13 20:33 | XMS_ITS | Encounter Summary ---
Author Organization [facility] Address [address] [place] [address] Care Team Providers Care Satellite Dish Technician Name Role Phone Rosemary Herman Primary Care Provider Encounter Details Date Type Department Care Team (Late Contact Info) Description 05/13/2024 Specialty Pharmacy [facility] [place] [address] Theodore Jesus, PHARMACIST Social History Tobacco Use Types Packs/Day Years Used Date Smoking Tobacco: Every Day Cigarettes Passive Smoke Exposure: Current Smokeless Tobacco: Former Alcohol Use Standard Drinks/Week Comments Not Currently 0 (1 standard drink = 0.6 oz pur e alcohol) Comments No Sex and Gender Information Value Date Recorded Sex Assigned at Not on file 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 Gender Identity Not on file Sexual Orientation Not on file documented as of this encounter Plan of Treatment Upcoming Encounters Date Type Department Care Team (Late Contact Info) Description 01/13/2025 10:20 AM CDT Office Visit [facility] [address] [place] [address] Art Buchanan FNP [address] [place] [address] 03/19/2025 8:40 AM ASPHALT ENGINEER Office Visit [facility] [address] [place] [address] Rosemary Herman DO [address] [facility] [place] [id number] documented as of this encounter Visit Diagnoses Not on filedocumented in this encounter Additional Health Concerns Assessment Noted Time PHQ-9 Depression Total Score: 1 04/09/20 24 10:33 AM ASPHALT ENGINEER documented as of this encounter Care Teams Satellite Dish Technician Relationship Specialty Start Date End Date Rosemary Herman DO [address] [place] [address] PCP - General Family Practice 12/22/23 documented as of this encounter
--- OUTSIDE RECORDS SUMMARY | 2024-11-13 20:33 | XMS_ITS | Encounter Summary ---
Author Organization [facility] Address [address] [place] [address] Care Team Providers Care Rivet Heater Name Role Phone Amie Emery MD Primary Care Provider +1- [phone] Encounter Details Date Type Department Care Team (Latest Contact Info) Description 06/30/[address] [facility] Gen Spec [place]urg [place] 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
--- OUTSIDE RECORDS SUMMARY | 2024-11-13 20:33 | XMS_ITS | Encounter Summary ---
Author Organization [facility] Address [address] [place] [address] Care Team Providers Care Clinical Education Academic Coordinator Name Role Phone Amie Emery MD Primary Care Provider +1- [phone] Encounter Details Date Type Department Care Team (Latest Contact Info) Description 03/11/[address] [facility] [address] [address] 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
--- OUTSIDE RECORDS SUMMARY | 2024-11-13 20:33 | XMS_ITS | Clinical Summary ---
Author Organization [facility] Address [address] [place] [address] Care Team Providers Care Certified Surgical Assistant Name Role Phone Amie Emery MD Primary Care Provider +1- [phone] Allergies Active Allergy Reactions Criticality Noted Date Comments Cyclizine Hives High 09/03/2007 Erythromycin Hives High 09/03/2007 Naproxen Hives High 09/03/2007 Penicillins Hives High 09/03/2007 Sulfa (Sulfonamide Antibiotics) Itching Low 08/2007 Medications ZYRTEC 10 mg Oral Tab 10 mg daily. Active COMBIVENT IN 2 puffs 4 times daily as needed Active insulin degludec (TRESIBA FLEXTOUCH U-200) 200 unit/mL pen syringe Inject by subcutaneous injection Inject subcutaneous 50 units daily . Active insulin aspart protamine-aspart (NovoLOG Mix 70-30FlexPen U-100) 100 unit/mL (70-30) pen syringe Inject by subcutaneous injection 10 units max daily . Active cyclobenzaprine (FLEXERIL) 10 mg tablet Take 10 mg by mouth. Active traMADol (ULTRAM) 50 mg tablet Take 50 mg by mouth every 6 hours as needed for Pain. Active sertraline (ZOLOFT) 25 mg tablet Take 25 mg by mouth daily. Active carvedilol (COREG) 25 mg tablet Take 25 mg by mouth 2 times daily with meals. Active atorvastatin (LIPITOR) 40 mg tablet Take 40 mg by mouth daily with supper. Active furosemide (LASIX) 40 mg tablet Take 40 mg by mouth daily. Active amLODIPine (NORVASC) 10 mg tablet Take 10 mg by mouth daily. Active isosorbide mononitrate (IMDUR) 30 mg Extended Release 24 hour tablet Take 30 mg by mouth daily ticker wirer. Active prasugrel (EFFIENT) 10 mg Tablet Take 10 mg by mouth daily. Active famotidine (PEPCID) 20 mg tablet TAKE 1 TABLET BY MOUTH ONCE DAILY Active Ozempic 0.25 mg or 0.5 mg(2 mg/1.5 mL) Pen Injector INJECT 0.5 MG SUBCUTANEOUSLY ONCE WEEKLY Active methocarbamoL (ROBAXIN) 750 mg tablet TAKE 1 TABLET BY MOUTH EVERY 8 HOURS NEEDED FOR PAIN Active montelukast (SINGULAIR) 10 mg tablet TAKE 1 TABLET BY MOUTH ONCE DAILY Active ascorbic acid, vitamin C, (VITAMIN C) 500 mg tablet Take 2,500 mg by mouth daily. Active oxyCODONE-acetaminophe n (Percocet) 5-325 mg tabletIndications:Prim juancho hyperparathyroidism Take 1 Tablet by mouth every 4 hours as needed for Pain. Max Daily Amount: 6 Tablets 20 Tablet 06/02/19 5:42 PM RAT BREEDER Active Active Problems Problem Noted Date Diagnosed Date Pseudophakia of right eye 04/23/2019 Optic disc hemorrhage, right 04/10/2019 Combined forms of age-related cataract of both e yes 04/10/2019 Diabetes mellitus type II, c ontrolled, with no complications 12/20/2018 Primary hyperparathyroidism 12/20/2018 Adrenal adenoma 12/20/2018 Immunizations Immunization Administration Dates Next Due Influenza Seasonal Unspecified Formulation IM ,02/28/2019 Family History Medical History Relation Name Comments Hypertension Brother Diabetes Father Hypertension Father Cataract Mother Glaucoma Mother Hypertension Mother Hypertension Sister Stroke Sister Relation Name Status Comments Brother Father Mother Sister Social History Tobacco Use Types Packs/Day Years Used Date Smoking Tobacco: Some Days Cigarettes Smokeless Tobacco: Former Tobacco Cessation:Ready to Q uit: No; Counseling Given: Yes Alcohol Use Standard Drinks/Week Comments Not Currently 0 (1 standard drink = 0.6 oz pur e alcohol) Comments No Sex and Gender Information Value Date Recorded Sex Assigned at Not on file Legal Sex Female 6:22 AM RAT BREEDER Gender Identity Not on file Sexual Orientation Not on file Last Filed Vital Signs Vital Sign Reading Time Taken Comments Blood Pressure 118/88 06/30/2020 1:13 PM RAT BREEDER Pulse 89 06/02/2020 5:10 PM RAT BREEDER Temperature 36.4 C (97.6 F) 06/02/2020 5:10 PM RAT BREEDER Respiratory Rate 16 06/02/2020 5:10 PM RAT BREEDER Oxygen Saturation 94% 06/02/2020 5:10 PM RAT BREEDER Inhaled Oxygen Concentration - - Weight 113.9 kg (251 lb) 06/30/2020 1:13 PM RAT BREEDER Height 152.4 cm (5') 06/30/2020 1:13 PM RAT BREEDER Body Mass Index 49.02 06/30/2020 1:13 PM RAT BREEDER Plan of Treatment Health Maintenance Due Date Last Done Comments DIABETES ANNUAL FOOT EXAM 1973 DIABETES MICROALBUMIN ANNUAL SCREEN 1973 DTAP/TDAP/TD VACCINES (1 - Tdap) 1974 PNEUMOCOCCAL VACCINE 50+ YEA RS (1 of 2 - PCV) 1974 COLORECTAL SCREENING 01/21/2000 Colorectal Cancer Screening 01/21/2000 FIT-DNA Q 3 years 01/21/2000 FIT/FOBT Q 1 year 01/21/2000 Flex Sig/CT Colonography Q 5 years 01/21/2000 ZOSTER VACCINE (1 of 2) 2005 RSV VACCINE (60+ or ) (1 - Risk 60-74 years 1-dose series) 2015 BREAST CANCER SCREENING 08/21/2019 08/20/2018, 01/11 DIABETES ANNUAL RETINAL EXAM 04/23/2020, 04/23/2019, 04/23/2019, Additional history exists LDL CHOLESTEROL ANNUAL 06/04/2020 06/04/2019, 2006 DIABETES HBA1C Q 6 MONTHS 06/25/20202019, 09/09/2019, 06/04/2019, Additional history exists OSTEOPOROSIS SCREENING 06/19/2024 06/19/2019, 2014 INFLUENZA VACCINE (#1) 2024 03/30/2020, 2018 Medical Devices Implanted Type Area Sales And Service Consultant Device Identifier Shelf Expiration Date Model / Serial / Lot Clip Ligating Horizon Sm [id number] - [id number] Implanted:Qty: 1 on 06/02/2020 by Yasmany Sanchez MD at [facility] Clip N/A: Neck [employer] [id number] 05/14/2024 [id number] / / [id number] Lens Io Tecnis 1pc 20.0 [id number] - [id number] Implanted:Qty: 1 on 04/18/2019 by Dar Lepe MD at [facility] Right: Eye [employer] 01/21/2023 [id number] / [id number] / Lens Io Tecnis 1pc 20.5 [id number] - [id number] Implanted:Qty: 1 on 04/30/2019 by Dar Lepe MD at [facility] Left: Eye [employer] 12/29/2022 [id number] / [id number] / Procedures Procedure Name Priority Date/Time Associated Diagnosis Comments LIPID PANEL Routine 06/04/2019 HEMOGLOBIN A1C Routine 10/09/2018 from Last 3 Months or Most Recently Relevant to Health Maintenance Results * LIPID PANEL (06/04/2019) ABSTRACTED CHOLESTEROL 154 ABSTRACTED TRIGLYCERIDE 124 ABSTRACTED HDL 55 ABSTRACTED LDL CALCULATED 74 CHOLESTEROL TRIGLYCERIDE HDL LDL CALCULATED Blood 06/04/2019 us Abstract [facility] Provider CHEMISTRY ORDERABLES Final Result * HEMOGLOBIN A1C (10/09/2018) Blood us Abstract [facility] Provider CHEMISTRY ORDERABLES Final Result from Last 3 Months or Most Recently Relevant to Health Maintenance Insurance [place] [facility] PL[facility] O [facility] RX [employer] Medicare Part D RX INFOCROSSING Medicaid Advance Directives For more information, please contact: [phone] * Full Code (Latest Code Status on File) Date Activated Date Inactivated Comments 04/30/2019 9:19 AM 04/30/2019 12:37 PM * Full Code Date Activated Date Inactivated Comments 04/18/2019 8:44 AM 04/18/2019 12:32 PM Care Teams Certified Surgical Assistant Relationship Specialty Start Date End Date Amie Emery MD [address] [place] [address] PCP - General Internal Medicine 12/20/18
--- OUTSIDE RECORDS SUMMARY | 2024-11-13 20:33 | XMS_ITS | Encounter Summary ---
Author Organization [facility] Address [address] [place] [address] Care Team Providers Care Mold Presser Name Role Phone Amie Emery MD Primary Care Provider +1- [phone] Encounter Details Date Type Department Care Team (Late st Contact Info) Description 06/04/2007 Outpatient Historical [facility] Endocrinology-[place] [place] [address] [place] [address] Kristopher Armando MD NO ADDRESS ON FILE Social History Tobacco Use Types Packs/Day Years Used Date Smoking Tobacco: Never Assessed Comments Unknown Sex and Gender Information Value Date Recorded Sex Assigned at Not on file Legal Sex Female 6: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 Pulse: 76. BP: 128/75. PROBLEM LIST: 1. History of bilateral adrenal adenomas. 2. Type 2 diabetes mellitus. 3. Athrosclerotic coronary artery disease. 4. Recent myocardial infarction with stent placement in the right coronary artery. 5. Hypertension. 6. Hyperlipidemia. 7. Mild left ventricular dysfunction. 8. Fibromyalgia. SUBJECTIVE: The patient is status post excision of laparoscopic left adrenalectomy for dominant nodule which was nonfunctioning. The patient now also has a diagnosis of arthrosclerotic coronary artery disease and had recent admission to the hospital for that. The patient returns for followup of her diabetes. She is doing well with Byetta and metformin and denies any new concerns or complaints. MEDICATIONS: 1. Byetta. 2. Metformin. Medications on a recent discharge from the hospital included: 1. Plavix. 2. Aspirin. 3. Zocor. 4. Zetia. 5. Potassium chloride. 6. Glucotrol. 7. Metformin. 8. Fish oil. 9. Lasix. 10. Coreg. At the present time she has discontinued the Glucotrol, continues on the metformin and is on Byetta. ALLERGIES: CILLINS, SULFA, NIACIN, CYCLIN'S AND ANAPROGS. PHYSICAL EXAMINATION: Remainder of physical examination is unchanged from her visit. ASSESSMENT: 1. Type 2 diabetes mellitus, excellent control. We will continue metformin and Byetta at this time and we will plan to see the patient in followup in approximately three months. 2. We will check hemoglobin A1c, comprehensive metabolic panel prior to her follow-up visit. Kristopher Armando M.D., Ph.D. Endocrinology Electronically Signed by Kristopher Armando M.D. 06/06/2007 07:34 , A, raymundo Document #: [id number] cc: Jabier Morales D.O. NT ACQUISITION SOURCER documented in this encounter Plan of Treatment Not on file documented as of this encounter Visit Diagnoses Not on filedocumented in this encounter Care Teams Mold Presser Relationship Specialty Start Date End Date Amie Emery MD [address] [place] [address] PCP - General Internal Medicine 12/20/18 documented as of this encounter
--- OUTSIDE RECORDS SUMMARY | 2024-11-13 20:33 | XMS_ITS | Encounter Summary ---
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) Social History Tobacco Use Types Packs/Day Years Used Date Smoking Tobacco: Never Assessed Comments Unknown Sex and Gender Information Value Date Recorded Sex Assigned at Not on file Legal Sex Female 6: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
--- OUTSIDE RECORDS SUMMARY | 2024-11-13 20:33 | XMS_ITS | Clinical Summary ---
Author Organization [facility] Address [address] [facility] Attn: Epic Prelude ADT ANTONI SORIANO [address] Care Team Providers Care Director Employee Communications Name Role Phone Rosemary Herman Primary Care Provider Allergies Active Allergy Reactions Criticality Noted Date Comments Cyclizine Hives High 09/03/2007 Doxycycline Diarrhea,Nausea and Vomiting High 09/16/2019 Erythromycin Hives High 09/03/2007 Naproxen Hives High 09/03/2007 Penicillins Hives High 09/03/2007 Sulfa (Sulfonamide Antibiotics) Itching Low 09/03/2007 Medications insulin degludec (TRESIBA) 200 unit/mL pen syringe Inject by subcutaneous injection Inject subcutaneous 50 units daily . 019 Active Additional Information Patient taking differently: 15 UnitssubCUTDAILY WITH BREAKFAST, Reported on 10/11/2024 atorvastatin (LIPITOR) 40 mg tablet Take 40 mg by mouth daily with supper. 019 Active albuterol sulfate HFA 90 mcg/actuation aerosol inhaler Take 2 Puffs by inhalation every 6 hours as needed for Shortness of Breath. Active benzonatate (TESSALON) 100 mg capsule benzonatate 100 mg capsule 023 Active Breztri Aerosphere 160 mcg-9mcg-4.8mc g/actuation HFA aerosol inhaler inhale two puffs by mouth twice daily Active insulin lispro (HumaLOG,ADMEL OG) 100 unit/mL pen syringe 024 Active omeprazole (PriLOSEC) 40 mg Capsule, Delayed Release(E.C.) Take 40 mg by mouth daily. Active ondansetron (ZOFRAN ODT) 4 mg Tablet, Rapid Dissolve Take 1 Tablet (4 mg) by mouth every 6 hours as needed for Nausea/Emesis. Dissolve tablet on top of tongue, then swallow with saliva. 30 Tablet Active triamcinolone acetonide (KENALOG) 0.1 % Cream Apply to affected area 2 times daily. 60 Gram 1 Active Ferrex 150 150 mg iron capsule TAKE ONE CAPSULE BY MOUTH DAILY. 90 Capsule 1 Active SODIUM CHLORIDE 0.9 %, FLUSH, INJECTION by Injection route. Active heparin, porcine, pf, (heparin LockFlush,Porc ine,,PF,) 10 unit/mL Syringe Inject 50 Units by intravenous injection see administration instructions. SAS Active sertraline (ZOLOFT) 50 mg tablet take 1 tablet by mouth once daily 90 Tablet 2 Active Eliquis 5 mg tablet Take 1 Tablet by mouth 2 times daily. 025 Active cetirizine (ZyrTEC) 10 mg tablet Take 1 Tablet (10 mg) by mouth daily. 100 Tablet 3 025 Active montelukast (SINGULAIR) 10 mg tablet TAKE 1 TABLET BY MOUTH ONCE DAILY 90 Tablet 1 025 Active ergocalciferol (VITAMIN D2) 50,000 unit capsule TAKE 1 CAPSULE BY MOUTH ONCE A WEEK 12 Capsule Active metoprolol succinate (TOPROL XL) 50 mg Extended Release 24 hour tablet TAKE ONE TABLET BY MOUTH TWICE DAILY 180 Tablet 4 025 Active isosorbide mononitrate (IMDUR) 30 mg Extended Release 24 hour tablet TAKE ONE TABLET BY MOUTH DAILY. 90 Tablet 3 025 Active losartan (COZAAR) 25 mg tabletIndicati ons:Primary hypertension Take 1 Tablet (25 mg) by mouth daily. 90 Tablet 3 025 Active prochlorperazi ne maleate (COMPAZINE) 10 mg tabletIndicati ons:Cancer of sigmoid colon (CMS/HCC),[place] static colon cancer to liver (CMS/HCC) TAKE ONE TABLET BY MOUTH EVERY SIX hours NEEDED FOR nausea/emesis. 30 Tablet 6 025 Active diphenoxylate- atropine 2.5 mg-0.025 mg tablet TAKE ONE TABLET BY MOUTH FOUR TIMES DAILY NEEDED FOR Diarrhea/Loose stools. 30 Tablet 025 Active traMADol (ULTRAM) 50 mg tabletIndicati ons:Chronic midline low back pain with bilateral sciatica Take 1 Tablet (50 mg) by mouth 3 times daily as needed for Pain. 90 Tablet 1 025 Active furosemide (LASIX) 40 mg tablet TAKE ONE TABLET BY MOUTH TWICE DAILY, SEVEN hours APART. 60 Tablet 2 025 Active baclofen (LIORESAL) 10 mg tablet TAKE ONE TABLET BY MOUTH THREE TIMES DAILY NEEDED FOR pain. 30 Tablet 3 025 Active HYDROcodone-ac etaminophen (NORCO) 5-325 mg tabletIndicati ons:Metastatic colon cancer to liver (CMS/HCC) Take 1 Tablet by mouth every 6 hours as needed for Pain, Moderate. Max Daily Amount: 4 Tablets 40 Tablet 025 Active Ozempic 1 mg/dose (4 mg/3 mL) Pen InjectorIndica tions:Controll ed type 2 diabetes mellitus without complication, with long-term current use of insulin (CMS/HCC) Inject 1 mg by subcutaneous injection every 7 days. 6 mL 3 025 Active gabapentin (NEURONTIN) 300 mg capsule TAKE ONE CAPSULE BY MOUTH THREE TIMES DAILY. 270 Capsule 3 025 Active potassium CHLORIDE (K-DUR,KLOR-CO N M20) 20 mEq Extended Release tablet TAKE ONE TABLET BY MOUTH DAILY. 30 Tablet 2 025 Active capecitabine (XELODA) 500 mg tabletIndicati ons:Cancer of sigmoid colon (CMS/HCC) Take 2 tablets (1,000 mg) by mouth twice daily for 14 days on, then 7 days off of each 21-day chemotherapy cycle. 56 Tablet 11/09/19 25 10:22 AM CDT 025 Active potassium CHLORIDE (KLOR-CON M20) 20 mEq Extended Release tablet Take 1 Tablet (20 mEq) by mouth daily. 30 Tablet 2 025 2024 Discontinued gabapentin (NEURONTIN) 300 mg capsule TAKE ONE CAPSULE BY MOUTH THREE TIMES DAILY. 90 Capsule 3 025 2024 Discontinued capecitabine (XELODA) 500 mg tabletIndicati ons:Cancer of sigmoid colon (CMS/HCC) Take 2 tablets (1,000 mg) by mouth twice daily for 14 days on, then 7 days off of each 21-day chemotherapy cycle. 56 Tablet 10/01/19 25 11:33 AM CDT 025 2024 Discontinued(R eorder) clindamycin HCL (CLEOCIN) 300 mg CapsuleIndicat ions:Chronic dental pain,Dental decay Take 1 Capsule (300 mg) by mouth 3 times daily for 7 days. 21 Capsule 025 2024 capecitabine (XELODA) 500 mg tabletIndicati ons:Cancer of sigmoid colon (CMS/HCC) Take 2 tablets (1,000 mg) by mouth twice daily for 14 days on, then 7 days off of each 21-day chemotherapy cycle. 56 Tablet 10/22/19 25 11:44 AM CDT 025 2024 Discontinued(R eorder) Active Problems Problem Noted Date Diagnosed Date Protein-calorie malnutrition, mild 08/07/2024 Type 2 diabetes mellitus wit h diabetic polyneuropathy, with long-term current use of insulin 06/16/2024 Hypokalemia 06/13/2024 Hypomagnesemia 06/13/2024 Personal history of DVT (deep vein thrombosis) 1 06/10/2023 Metastatic colon cancer to liver 04/09/2024 Physical debility 03/27/2024 DVT of lower limb, acute 03/26/2024 Iron deficiency anemia due to chronic blood loss 02/29/2024 Chronic diastolic congestive heart failure 01/24 Recurrent major depressive disorder, in full rem ission 01/25/2024 Generalized anxiety disorder 01/25/2024 Cancer of sigmoid colon 01/09/2024 Cancer Staging:Pathologic stage from 01/10/2024: pT4b, pN1a - Signed by Silvina Gray MD on 01/10/2024 Acute diverticulitis 10/22/2023 Acute blood loss anemia 10/22/2023 Cigarette dependence 10/22/2023 Gastroesophageal reflux disease without esophagi tis 10/22/2023 Infrarenal abdominal aortic aneurysm (AAA) witho ut rupture 10/22/2023 Morbid obesity with body mass index (BMI) of 40. 0 or higher 10/22/2023 Chronic respiratory failure with hypoxia and hyp ercapnia 10/22/2023 Panlobular emphysema 10/22/2023 [facility] resident 10/16/2023 Overview (10/16/2023): [facility] Atrial fibrillation 10/07/2023 Overview (10/07/2023): With RVR Colitis 09/23/2023 Diverticulitis 09/23/2023 HTN (hypertension) 09/23/2023 Coronary atherosclerosis 09/23/2023 Hyperlipidemia 09/23/2023 Ischemic cardiomyopathy 09/23/2023 Anemia 08/29/2023 Paroxysmal atrial fibrillation 04/04/2023 Delirium 04/04/2023 Pseudophakia of right eye 04/23/2019 Combined forms of age-related cataract of both e yes 04/10/2019 Optic disc hemorrhage, right 04/10/2019 Diabetes mellitus type II, c ontrolled, with no complications 12/20/2018 Adrenal adenoma 12/20/2018 Primary hyperparathyroidism 12/20/2018 Resolved Problems Problem Noted Date Diagnosed Date Resolved Date Acute bronchitis 03/26/2024 04/05/2024 Abdominal pain 03/26/2024 04/05/2024 Bloating 03/26/2024 04/05/2024 Acute diarrhea 03/26/2024 04/05/2024 Acute on chronic heart failu re with preserved ejection fraction 10/07/2023 06/16/2024 Encounters Date Type Department Care Team Description 11/13/2024 External Device Data STL ABSTRACTION Provider, Abstract 11/04/2024 Specialty Pharmacy [facility] [address] [facility] [place] [address] Kacie Holbrook, PHARMACIST Specialty Pharmacy Refill Coordination 11/04/2024 Results Follow-Up [facility] Cancer and Hematology [place] [address] [facility] 2 [place] [phone] CHEST ABDOMEN PELVIS W CONT 10/25/2024 9:49 AM CDT - 10/25/2024 11:59 PM CDT Hospital Encounter [facility] CT Scan [place] [address] [place] [address] Greg Corona MD Discharge Disposition: Home or Self Care 10/25/2024 Refill [facility] [place] [facility] [address] [address] Greg Corona MD Cancer of sigmoid colon (CMS/HCC) 10/23/2024 External Device Data STL ABSTRACTION Provider, Abstract 10/22/2024 Telephone [facility] Cancer [facility] [place] [address] [place] [phone] Greg Corona MD [employer] 10/22/2024 External Device Data STL ABSTRACTION Provider, Abstract 10/21/[address] [address] Rosemary Herman, DO 10/21/2024 External Device Data STL ABSTRACTION Provider, Abstract 10/20/2024 External Device Data STL ABSTRACTION Provider, Abstract 10/19/2024 External Device Data STL ABSTRACTION Provider, Abstract 10/18/2024 External Device Data STL ABSTRACTION Provider, Abstract 10/17/2024 Orders Only [facility] Cancer [facility] [place] [address] [place] [phone] Greg Corona MD Anemia, unspecified type (Primary Dx); Cancer of sigmoid colon (CMS/HCC) 10/17/2024 Refill [facility] Cancer [facility] [place] [address] [place] [phone] Greg Corona MD Cancer of sigmoid colon (CMS/HCC) 10/17/2024 Specialty Pharmacy [facility] [address] [place] [phone] Francesca Dillon, PHARMACIST Specialty Pharmacy Refill Coordination 10/17/2024 Refill [place] [address] [place] [address] Rosemary Herman DO 10/17/2024 External Device Data STL ABSTRACTION Provider, Abstract 10/16/2024 External Device Data STL ABSTRACTION Provider, Abstract 10/16/2024 External Device Data STL ABSTRACTION Provider, Abstract 10/15/2024 External Device Data STL ABSTRACTION Provider, Abstract 10/15/2024 External Device Data STL ABSTRACTION Provider, Abstract 10/14/2024 Results Follow-Up [facility] [address] [place] [address] Art Buchanan, CECI HEMOGLOBIN A1C 10/14/2024 External Device Data STL ABSTRACTION Provider, Abstract 10/13/2024 External Device Data STL ABSTRACTION Provider, Abstract 10/12/2024 External Device Data STL ABSTRACTION Provider, Abstract 10/11/2024 10:40 AM CDT Office Visit [place] [address] [place] [address] Art Buchanan, GARMENT MANUFACTURER Controlled type 2 diabetes mellitus without complication, with long-term current use of insulin (CMS/HCC) (Primary Dx); Cancer of sigmoid colon (CMS/HCC); Chronic dental pain; Dental decay; Panlobular emphysema (CMS/HCC); Anemia, unspecified type 10/11/2024 Abstract [facility] [address] [facility] [address] [place] [address] Provider, Abstract 10/11/2024 Refill [facility] [address] [place] [address] Rosemary Herman DO Controlled type 2 diabetes mellitus without complication, with long-term current use of insulin (CMS/HCC) (Primary Dx) 10/11/2024 Refill [facility] [address] [place] [address] Rosemary Herman DO Metastatic colon cancer to liver (CMS/HCC); Type 2 diabetes mellitus without complications (CMS/HCC) 10/11/2024 External Device Data STL ABSTRACTION Provider, Abstract 10/10/2024 Telephone [facility] Cancer [facility] [place] [address] [facility] 2 [place] [address] Greg Corona MD Durable Medical Equipment 10/10/2024 External Device Data STL ABSTRACTION Provider, Abstract 10/09/2024 11:00 AM CDT Office Visit [facility] Cancer [facility] [place] [address] [facility] [address] [place] [address] Greg Corona MD Anemia, unspecified type (Primary Dx); Cancer of sigmoid colon ([facility]/HCC) 10/09/2024 9:31 AM CDT - 10/09/2024 11:59 PM CDT Hospital Encounter [facility] [address] [place] [address] Greg Corona MD Discharge Disposition: Home or Self Care 10/09/2024 Telephone [facility] [place] [address] [facility] [address] [place] [address] Greg Corona MD Orders 10/09/2024 External Device Data STL ABSTRACTION Provider, Abstract 10/08/2024 External Device Data STL ABSTRACTION Provider, Abstract 10/08/2024 External Device Data STL ABSTRACTION Provider, Abstract 10/07/2024 External Device Data STL ABSTRACTION Provider, Abstract 10/06/2024 External Device Data STL ABSTRACTION Provider, Abstract 10/05/2024 External Device Data STL ABSTRACTION Provider, Abstract 10/04/2024 External Device Data STL ABSTRACTION Provider, Abstract 10/03/2024 External Device Data STL ABSTRACTION Provider, Abstract 10/02/2024 External Device Data STL ABSTRACTION Provider, Abstract 10/01/2024 Telephone [facility] [address] [place] [facility] [place] [address] Rosemary Herman DO Provider Call 10/01/2024 External Device Data STL ABSTRACTION Provider, Abstract 09/30/2024 External Device Data STL ABSTRACTION Provider, Abstract 09/29/2024 External Device Data STL ABSTRACTION Provider, Abstract 09/28/2024 External Device Data STL ABSTRACTION Provider, Abstract 09/27/2024 External Device Data STL ABSTRACTION Provider, Abstract 09/26/2024 Specialty Pharmacy [facility] [address] [place] [address] Francesca Dillon, PHARMACIST Specialty Pharmacy Refill Coordination 09/26/2024 External Device Data STL ABSTRACTION Provider, Abstract 09/26/2024 External Device Data STL ABSTRACTION Provider, Abstract 09/25/2024 External Device Data STL ABSTRACTION Provider, Abstract 09/24/2024 External Device Data STL ABSTRACTION Provider, Abstract 09/23/2024 External Device Data STL ABSTRACTION Provider, Abstract 09/22/2024 External Device Data STL ABSTRACTION Provider, Abstract 09/21/2024 External Device Data STL ABSTRACTION Provider, Abstract 09/20/2024 External Device Data STL ABSTRACTION Provider, Abstract 09/19/2024 Results Follow-Up [facility] Hematology [place] [address] [place] [phone] Greg Corona MD COMPREHENSIVE METABOLIC PANEL, PROTEIN/CREATININE RATIO, URINE, CEA 09/19/2024 External Device Data STL ABSTRACTION Provider, Abstract 09/18/2024 10:45 AM CDT - 09/18/2024 11:59 PM CDT Hospital Encounter [facility] [address] [place] [phone] Greg Corona MD Sprg Oncology, Infusion 3 Discharge Disposition: Home or Self Care 09/18/2024 10:20 AM CDT Office Visit [facility] [place] [address] [place] [phone] Greg Corona MD Cancer of sigmoid colon (CMS/HCC) (Primary Dx); Anemia, unspecified type; Iron deficiency anemia due to chronic blood loss 09/18/2024 8:46 AM CDT - 09/18/2024 11:59 PM CDT Hospital Encounter [facility] [address] [place] [phone] Greg Corona MD Discharge Disposition: Home or Self Care 09/18/2024 External Device Data STL ABSTRACTION Provider, Abstract 09/18/2024 External Device Data STL ABSTRACTION Provider, Abstract 09/17/2024 Refill [facility] Cancer [facility] Hemat[facility] [place] [address] [phone] Greg Corona MD Cancer of sigmoid colon ([facility]/HCC) 09/17/2024 External Device Data STL ABSTRACTION Provider, Abstract 09/16/2024 External Device Data STL ABSTRACTION Provider, Abstract 09/15/2024 External Device Data STL ABSTRACTION Provider, Abstract 09/14/2024 External Device Data STL ABSTRACTION Provider, Abstract 09/13/2024 External Device Data STL ABSTRACTION Provider, Abstract 09/12/2024 External Device Data STL ABSTRACTION Provider, Abstract 09/11/2024 External Device Data STL ABSTRACTION Provider, Abstract 09/10/2024 External Device Data STL ABSTRACTION Provider, Abstract 09/09/2024 External Device Data STL ABSTRACTION Provider, Abstract 09/08/2024 External Device Data STL ABSTRACTION Provider, Abstract 09/07/2024 External Device Data STL ABSTRACTION Provider, Abstract 09/06/2024 External Device Data STL ABSTRACTION Provider, Abstract 09/05/2024 Specialty Pharmacy [facility] [address] [place] [phone] Kacie Holbrook, PHARMACIST Specialty Pharmacy Refill Coordination 09/05/2024 External Device Data STL ABSTRACTION Provider, Abstract 09/04/2024 Refill [facility] Cancer and Hematology [place] [address] [place] [phone] Greg Corona MD Cancer of sigmoid colon (CMS/HCC) 09/04/2024 External Device Data STL ABSTRACTION Provider, Abstract 09/03/2024 External Device Data STL ABSTRACTION Provider, Abstract 09/02/2024 External Device Data STL ABSTRACTION Provider, Abstract 09/01/2024 External Device Data STL ABSTRACTION Provider, Abstract 08/31/2024 External Device Data STL ABSTRACTION Provider, Abstract 08/30/2024 External Device Data STL ABSTRACTION Provider, Abstract 08/29/2024 External Device Data STL ABSTRACTION Provider, Abstract 08/28/2024 10:26 AM CDT - 08/28/2024 11:59 PM CDT Hospital Encounter [facility] [address] [place] [address] Greg Corona MD Sprg Oncology, Infusion 22 Discharge Disposition: Home or Self Care 08/28/2024 10:00 AM CDT Office Visit [facility] [address] [place] [address] Greg Corona MD Anemia, unspecified type (Primary Dx); Cancer of sigmoid colon (CMS/HCC); Iron deficiency anemia due to chronic blood loss 08/28/2024 8:44 AM CDT - 08/28/2024 11:59 PM CDT Hospital Encounter [facility] [address] [place] [address] Greg Corona MD Discharge Disposition: Home or Self Care 08/28/2024 Orders Only [facility] [address] [place], [place] [address] [phone] Greg Corona MD Cancer of sigmoid colon (CMS/HCC) (Primary Dx) 08/28/2024 External Device Data STL ABSTRACTION Provider, Abstract 08/27/2024 External Device Data STL ABSTRACTION Provider, Abstract 08/26/2024 External Device Data STL ABSTRACTION Provider, Abstract 08/25/2024 External Device Data STL ABSTRACTION Provider, Abstract 08/24/2024 External Device Data STL ABSTRACTION Provider, Abstract 08/23/2024 External Device Data STL ABSTRACTION Provider, Abstract 08/22/2024 External Device Data STL ABSTRACTION Provider, Abstract 08/21/2024 External Device Data STL ABSTRACTION Provider, Abstract 08/20/2024 Telephone [facility] [address] [place] [address] Greg Corona MD Information 08/20/2024 External Device Data STL ABSTRACTION Provider, Abstract 08/19/2024 Results Follow-Up [facility] [address] [facility] [address] [place] [phone] Greg Corona MD US VENOUS DOPPLER LEG LEFT 08/19/2024 External Device Data STL ABSTRACTION Provider, Abstract 08/18/2024 Refill [facility] [address] [place] [phone] Rosemary Herman, Chronic midline low back pain with bilateral sciatica 08/18/2024 External Device Data STL ABSTRACTION Provider, Abstract 08/17/2024 External Device Data STL ABSTRACTION Provider, Abstract 08/16/2024 External Device Data STL ABSTRACTION Provider, Abstract 08/15/2024 External Device Data STL ABSTRACTION Provider, Abstract 08/14/2024 External Device Data STL ABSTRACTION Provider, Abstract from Last 3 Months Immunizations Immunization Administration Dates Next Due INFLUENZA VACCINE TRIVALENT SPLIT VIRUS, (6 MOS UP), 0.5ML (PF), IM 02/01/2024 Influenza Seasonal Unspecified Formulation IM ,02/28/2019 Family History Medical History Relation Name Comments Hypertension Brother Harish woo Diabetes Father Guzman Heart Disease Father Guzman Hypertension Father Guzman Cataract Mother Airam Glaucoma Mother Airam Hypertension Mother Airam Hypertension Sister Paulina Stroke Sister Paulina Colon Cancer Neg Hx Relation Name Status Comments Brother Harish woo Father Guzman Mother Airam Sister Paulina Social History Tobacco Use Types Packs/Day Years Used Date Smoking Tobacco: Every Day Cigarettes Passive Smoke Exposure: Current Smokeless Tobacco: Former Tobacco Cessation:Ready to Q uit: Not Asked; Counseling Given: Not Answered Alcohol Use Standard Drinks/Week Comments Not Currently 0 (1 standard drink = 0.6 oz pur e alcohol) Comments No Sex and Gender Information Value Date Recorded Sex Assigned at Not on file Legal Sex Female 1:22 PM 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 Gender Identity Not on file Sexual Orientation Not on file Last Filed Vital Signs Vital Sign Reading Time Taken Comments Blood Pressure 134/68 10/11/2024 10:38 AM CDT Pulse 98 10/11/2024 10:38 AM CDT Temperature 36.3 C (97.3 F) 10/11/2024 10:38 AM CDT Respiratory Rate 18 10/11/2024 10:38 AM CDT Oxygen Saturation 92% 10/11/2024 10:38 AM CDT Inhaled Oxygen Concentration - - Weight 76.2 kg (168 lb) 10/11/2024 10:38 AM CDT Height 147.3 cm (4' 10 ) 10/11/2024 10:38 AM CDT Body Mass Index 35.11 10/11/2024 10:38 AM CDT Plan of Treatment Upcoming Encounters Date Type Department Care Team (Late st Contact Info) Description 01/13/2025 10:20 AM CDT Office Visit [facility] [address] [place] [phone] Art Buchanan, [facility] [address] [place] [phone] 03/19/2025 8:40 AM 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 Office Visit [facility] [address] [place] [phone] Rosemary Herman, DO [address] [place] [address] Health Maintenance Due Date Last Done Comments DIABETES ANNUAL FOOT EXAM 1973 DTAP/TDAP/TD VACCINES (1 - Tdap) 1974 PNEUMOCOCCAL VACCINE 50+ YEA RS (1 of 2 - PCV) 1974 ZOSTER VACCINE (1 of 2) 1974 RSV VACCINE (60+ or ) (1 - Risk 60-74 years 1-dose series) 2015 DIABETES ANNUAL RETINAL EXAM 04/23/2020, 04/23/2019, 04/23/2019, Additional history exists DIABETES MICROALBUMIN ANNUAL SCREEN 07/06/2023 07/05/2022 BREAST CANCER SCREENING 10/12/2023 10/12/19 23, 08/20/2018, 01/11/2017 Medicare Ad[place]age ([place]) Preventative Visit/Annual Wellness Visit 05/01/2024 04/09/2024 INFLUENZA VACCINE (#1) 2024 , 03/30/2020, 02/28/2019 DIABETES HBA1C Q 6 MONTHS 04/12/20252024, 02/01/2024, 05/04/2023, Additional history exists LDL CHOLESTEROL ANNUAL 06/11/2025 5, 03/07/2024, 02/01/2024, Additional history exists OSTEOPOROSIS SCREENING 02/29/2028 3, 06/19/2019, 03/06/2015 COLORECTAL SCREENING Discontinued 02/16/2024, 02/13/2024, 01/10/2024, Additional history exists Colorectal Cancer Screening Discontinued FIT-DNA Q 3 years Discontinued FIT/FOBT Q 1 year Discontinued Flex Sig/CT Colonography Q 5 years Discontinued Medical Devices Implanted Type Area Office Receptionist Device Identifier Shelf Expiration Date Model / Serial / Lot Clip Ligating Horizon [id number] - [id number] Implanted:Qty: 1 on 06/02/2020 by Yasmany Sanchez MD Clip N/A: Neck [employer] [id number] 05/14/2024 / / [id number] Lens Io Tecnis 1pc 20.0 [id number] - [id number] Implanted:Qty: 1 on 04/18/2019 by Dar Lepe MD Eye Right: Eye [employer] 01/21/2023 [id number] / [id number] / Lens Io Tecnis 1pc 20.5 [id number] - [id number] Implanted:Qty: 1 on 04/30/2019 by Dar Lepe MD Eye Left: Eye [employer] 12/29/2022 [id number] / [id number] / Port Pwrprt Clearvue Slim 8fr [id number] - [id number] Implanted:Qty: 1 on 07/03/2024 by Jacob Burton MD at [facility] Port Right: Chest Wall BARD [employer] VASC [id number] 09/28/2025 [id number] / / [id number] Procedures Procedure Name Priority Date/Time Associated Diagnosis Comments CT CHEST ABDOMEN PELVIS W CONT Routine 10/25/2024 10:20 AM CDT Cancer of sigmoid colon (CMS/HCC) COMPREHENSIVE METABOLIC PANEL Stat 10/11/2024 11:05 AM CDT Anemia, unspecified type Cancer of sigmoid colon (CMS/HCC) CBC WITH DIFFERENTIAL Stat 10/11/2024 11:05 AM CDT Anemia, unspecified type Cancer of sigmoid colon (CMS/HCC) HEMOGLOBIN A1C Routine 10/11/2024 11:05 AM CDT Controlled type 2 diabetes mellitus without complication, with long-term current use of insulin (CMS/HCC) CBC WITH DIFFERENTIAL Stat 10/09/2024 9:36 AM CDT Cancer of sigmoid colon (CMS/HCC) COMPREHENSIVE METABOLIC PANEL Stat 10/09/2024 9:36 AM CDT Cancer of sigmoid colon (CMS/HCC) PROTEIN , RANDOM URINE Stat 10/09/2024 9:36 AM CDT Anemia, unspecified type Cancer of sigmoid colon (CMS/HCC) CEA Routine 10/09/2024 9:36 AM CDT Anemia, unspecified type Cancer of sigmoid colon (CMS/HCC) PROTEIN , RANDOM URINE Stat 09/18/2024 9:26 AM CDT Cancer of sigmoid colon (CMS/HCC) Anemia, unspecified type Iron deficiency anemia due to chronic blood loss COMPREHENSIVE METABOLIC PANEL Stat 09/18/2024 9:25 AM CDT Cancer of sigmoid colon (CMS/HCC) CBC WITH DIFFERENTIAL Stat 09/18/2024 9:25 AM CDT Cancer of sigmoid colon (CMS/HCC) CEA Routine 09/18/2024 8:44 AM CDT Cancer of sigmoid colon (CMS/HCC) Anemia, unspecified type Iron deficiency anemia due to chronic blood loss PROTEIN , RANDOM URINE Stat 08/28/2024 12:56 PM CDT Cancer of sigmoid colon (CMS/HCC) CEA Routine 08/28/2024 8:45 AM CDT Anemia, unspecified type Cancer of sigmoid colon (CMS/HCC) Iron deficiency anemia due to chronic blood loss CBC WITH DIFFERENTIAL Stat 08/28/2024 8:45 AM CDT Cancer of sigmoid colon (CMS/HCC) COMPREHENSIVE METABOLIC PANEL Stat 08/28/2024 8:45 AM CDT Cancer of sigmoid colon (CMS/HCC) LIPID PANEL Routine 06/11/2024 1:14 PM 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 Metastatic colon cancer to liver (CMS/HCC) Paroxysmal atrial fibrillation (CMS/HCC) Controlled type 2 diabetes mellitus without complication, with long-term current use of insulin (CMS/HCC) Chronic respiratory failure with hypoxia and hypercapnia (CMS/HCC) Panlobular emphysema (CMS/HCC) Morbid obesity with body mass index (BMI) of 40.0 or higher (CMS/HCC) Primary hyperparathyroidism Recurrent major depressive disorder, in full remission Atherosclerosis of [place] coronary artery of [place] heart without angina pectoris Generalized anxiety disorder Primary hypertension Mixed hyperlipidemia COLONOSCOPY REPORT 11/28/2023 12 :19 PM CDT XR DEXA BONE DENSITY AXIAL 1 OR MORE SITES Routine 02/28/2023 11:38 AM CDT MAMMO SCREEN BILAT W OR WO CAD Routine 10/11/2022 11:39 AM CDT MICROALBUMIN/CREATINI NE RATIO, RANDOM UR Routine 07/05/2022 from Last 3 Months or Most Recently Relevant to Health Maintenance Results * CT CHEST ABDOMEN PELVIS W CONT (10/25/2024 10:20 AM CDT) Anatomical Region Laterality Modality Chest Computed Tomogra phy 10/25/2024 9:58 AM CDT Narrative 10/25/2024 11:03 AM CDT Exam: CT CHEST ABDOMEN PELVIS W CONT Date/Time of Exam: 10/25/2024 10:20 AM Reason For Exam: Metastatic disease evaluation. Diagnosis: Cancer of sigmoid colon (CMS/HCC). Technique: CT of the chest, abdomen, and pelvis was performed following the administration of intravenous contrast. Contrast: Isovue-300 Comparison: 07/24/2024. Findings: CHEST: The heart size is normal without pericardial effusion. Prominent atherosclerotic calcifications are present throughout the coronary arteries and thoracic aorta. The ascending aorta is aneurysmal measuring up to 4.7 cm. No dissection. The proximal great vessels are patent. No central pulmonary arterial filling defects. Reactive size lymph nodes are present in the mediastinal and hilar stations, similar to the prior study. Right-sided chest port catheter terminates in the lower SVC. Visualized thyroid gland is within normal limits. The lung windows demonstrate mild centrilobular emphysematous changes. Mild secretions are present in the trachea and right mainstem bronchus. The right lower lobe pulmonary nodule 10 x 7 mm compared to 10 x 8 mm previously. There is minimal basilar atelectasis. Tiny subpleural nodules are redemonstrated in the right upper lobe without interval change. No airspace disease, pleural effusion, or pneumothorax. ABDOMEN: The hepatic attenuation is diffusely decreased suggesting prominent steatosis. The right hepatic lobe lesions are less distinct and more difficult to measure due to the associated perfusion anomaly. The larger more anterior lesion measures approximately 3.1 x 2.1 cm compared to 3.4 x 2.8 cm previously. The more posterior lesion measures 2.1 x 1.6 cm compared to 2.4 x 1.9 cm previously. The overall enhancement has diminished. The more inferior right hepatic lobe lesion measures approximately 2.1 x 2.4 cm compared to 2.8 x 2.3 cm previously. The gallbladder is surgically absent. No biliary ductal dilatation. The infused appearance of the pancreas and spleen is normal. Right adrenal nodules are redemonstrated measuring up to 3.4 x 2.3 cm, not significantly changed. There is mild renal cortical thinning and scarring. No mass or hydronephrosis. Punctate nonobstructing calculi noted bilaterally with tiny low-density left renal cysts. The small bowel caliber is normal without obstruction. Surgical anastomosis noted at the ileocolonic junction. There is wall thickening of the ascending colon. Diverticulosis involves the sigmoid colon. A small volume of ascites has developed in the interval. Mild nodularity again noted within the left greater omentum without interval change. Surgical changes of ventral abdominal wall hernia repair noted. Pelvis: No focal bladder wall abnormality. Calcified uterine fibroids are present. Small to moderate volume of free fluid noted in the cul-de-sac. No focal bladder wall abnormality. Vascular: Extensive atherosclerosis is noted throughout the aorta and major branches. The infrarenal aorta is aneurysmal at 5.1 x 5.2 cm with eccentric mural thrombus. MUSCULOSKELETAL: Degenerative changes are noted throughout the axial skeleton. Severe osteoarthritic changes involve the right glenohumeral joint. No aggressive appearing osseous lesion. ++++++++++++++++++++ IMPRESSION Right-sided pulmonary nodule and hepatic metastatic lesions which have slightly improved from the prior study consistent with a positive response. Stable right adrenal nodules and left-sided Mediport nodularity without interval change. Interval development of a small volume of ascites. Mild ascending colonic wall thickening potentially infectious or inflammatory in nature. Procedure Note Theodore Acevedo MD - 10/25/2024 Exam: CT CHEST ABDOMEN PELVIS W CONT Date/Time of Exam: 10/25/2024 10:20 AM Reason For Exam: Metastatic disease evaluation. Diagnosis: Cancer of sigmoid colon (CMS/HCC). Technique: CT of the chest, abdomen, and pelvis was performed following the administration of intravenous contrast. Contrast: Isovue-300 Comparison: 07/24/2024. Findings: CHEST: The heart size is normal without pericardial effusion. Prominent atherosclerotic calcifications are present throughout the coronary arteries and thoracic aorta. The ascending aorta is aneurysmal measuring up to 4.7 cm. No dissection. The proximal great vessels are patent. No central pulmonary arterial filling defects. Reactive size lymph nodes are present in the mediastinal and hilar stations, similar to the prior study. Right-sided chest port catheter terminates in the lower SVC. Visualized thyroid gland is within normal limits. The lung windows demonstrate mild centrilobular emphysematous changes. Mild secretions are present in the trachea and right mainstem bronchus. The right lower lobe pulmonary nodule 10 x 7 mm compared to 10 x 8 mm previously. There is minimal basilar atelectasis. Tiny subpleural nodules are redemonstrated in the right upper lobe without interval change. No airspace disease, pleural effusion, or pneumothorax. ABDOMEN: The hepatic attenuation is diffusely decreased suggesting prominent steatosis. The right hepatic lobe lesions are less distinct and more difficult to measure due to the associated perfusion anomaly. The larger more anterior lesion measures approximately 3.1 x 2.1 cm compared to 3.4 x 2.8 cm previously. The more posterior lesion measures 2.1 x 1.6 cm compared to 2.4 x 1.9 cm previously. The overall enhancement has diminished. The more inferior right hepatic lobe lesion measures approximately 2.1 x 2.4 cm compared to 2.8 x 2.3 cm previously. The gallbladder is surgically absent. No biliary ductal dilatation. The infused appearance of the pancreas and spleen is normal. Right adrenal nodules are redemonstrated measuring up to 3.4 x 2.3 cm, not significantly changed. There is mild renal cortical thinning and scarring. No mass or hydronephrosis. Punctate nonobstructing calculi noted bilaterally with tiny low-density left renal cysts. The small bowel caliber is normal without obstruction. Surgical anastomosis noted at the ileocolonic junction. There is wall thickening of the ascending colon. Diverticulosis involves the sigmoid colon. A small volume of ascites has developed in the interval. Mild nodularity again noted within the left greater omentum without interval change. Surgical changes of ventral abdominal wall hernia repair noted. Pelvis: No focal bladder wall abnormality. Calcified uterine fibroids are present. Small to moderate volume of free fluid noted in the cul-de-sac. No focal bladder wall abnormality. Vascular: Extensive atherosclerosis is noted throughout the aorta and major branches. The infrarenal aorta is aneurysmal at 5.1 x 5.2 cm with eccentric mural thrombus. MUSCULOSKELETAL: Degenerative changes are noted throughout the axial skeleton. Severe osteoarthritic changes involve the right glenohumeral joint. No aggressive appearing osseous lesion. ++++++++++++++++++++ IMPRESSION Right-sided pulmonary nodule and hepatic metastatic lesions which have slightly improved from the prior study consistent with a positive response. Stable right adrenal nodules and left-sided Mediport nodularity without interval change. Interval development of a small volume of ascites. Mild ascending colonic wall thickening potentially infectious or inflammatory in nature. [facility] Cj OLIVEROS CT ORDERABLES Final Result * (ABNORMAL) CBC WITH DIFFERENTIAL (10/11/2024 11:05 AM CDT) Only the most recent of4 resultswithin the time period is included. Pathologist [facility] WBC 6.7 3.8 - 10.8 Thousand/uL [facility] RBC 3.98 3.80 - 5.10 Million/uL [facility] HEMOGLOBIN 15.7(H) 11.7 - 15.5 g/dL [facility] HEMATOCRIT 47.0(H) 35.0 - 45.0 % [facility] MCV 118.1(H) 80.0 - 100.0 fL [facility] MCH 39.4(H) 27.0 - 33.0 pg [facility] MCHC 33.4 32.0 - 36.0 g/dL [facility] Comment: For adults, a slight decrease in the calculated MCHC value (in the range of 30 to 32 g/dL) is most likely not clinically significant; however, it should be interpreted with caution in correlation with other red cell parameters and the patient's clinical condition. RDW 16.0(H) 11.0 - 15.0 % [facility] PLATELETS 86(L) 140 - 400 Thousand/uL [facility] MPV 11.3 7.5 - 12.5 fL [facility] NEUTROPHIL ABSOLUTE 4,221 1,500 - 7,800 cells/uL [facility] LYMPHOCYTE ABSOLUTE 1,675 850 - 3,900 cells/uL [facility] MONOCYTE ABSOLUTE 710 200 - 950 cells/uL [facility] EOSINOPHIL ABSOLUTE 47 15 - 500 cells/uL [facility] BASOPHILS ABSOLUTE 47 0 - 200 cells/uL [facility] NEUTROPHIL 63.0 % [facility] LYMPHOCYTES 25.0 % [facility] MONOCYTE 10.6 % [facility] EOSINOPHILS 0.7 % [facility] BASOPHILS 0.7 % [facility] PLATELET EST. DECREASED (A) ADEQUATE [facility] RBC MORPHOLOGY NORMAL [facility] Comment: Macrocytosis 2 + Polychromasia 1 + FASTING: UNKNOWN Test Performed at: [facility] [address] [place] [address] Ilsa Hale MD Blood 10/11/2024 11:0 5 AM CDT 10/12/2024 9:39 AM CDT us Greg Corona MD HEMATOLOGY ORDERABLES Final Resu lt Performing Organization Address City/[facility]/ZIP Co de Phone Number [facility] [phone] [facility] [address] [place] [address] * (ABNORMAL) HEMOGLOBIN A1C (10/11/2024 11:05 AM CDT) HEMOGLOBIN A1C 7.0(H) <5.7 % [facility] Comment: For someone without known diabetes, a hemoglobin A1c value of 6.5% or greater indicates that they may have diabetes and this should be confirmed with a follow-up test. For someone with known diabetes, a value <7% indicates that their diabetes is well controlled and a value greater than or equal to 7% indicates suboptimal control. A1c targets should be individualized based on duration of diabetes, age, comorbid conditions, and other considerations. Currently, no consensus exists regarding use of hemoglobin A1c for diagnosis of diabetes for children. ESTIMATED AVERAGE GLUCOSE (MG/DL) 154 mg/dL [facility] ESTIMATED AVERAGE GLUCOSE (MMOL/L) 8.5 mmol/L [facility] Comment: Test Performed at: [facility] [address] [place] [address] Ilsa Hale MD Blood 10/11/2024 11:0 5 AM CDT 10/12/2024 6:21 AM CDT us Art Buchanan GARMENT MANUFACTURER CHEMISTRY ORDERABLES Final Result Performing Organization Address City/[facility]/ZIP Co de Phone Number [facility] [phone] [facility] [address] [place] [address] * (ABNORMAL) COMPREHENSIVE METABOLIC PANEL (10/11/2024 11:05 AM CDT) Only the most recent of4 resultswithin the time period is included. GLUCOSE 168(H) 65 - 99 mg/dL [facility] Comment: Fasting reference interval For someone without known diabetes, a glucose value >125 mg/dL indicates that they may have diabetes and this should be confirmed with a follow-up test. BUN 8 7 - 25 mg/dL [facility] CREATININE 0.72 0.50 - 1.05 mg/dL [facility] GFR 90 > OR = 60 mL/min/1. 73m2 [facility] BUN/CREAT RATIO SEE NOTE: 6 - 22 (calc) [facility] Comment: Not Reported: BUN and Creatinine are within reference range. SODIUM 141 135 - 146 mmol/L [facility] POTASSIUM 3.7 3.5 - 5.3 mmol/L [facility] CHLORIDE 101 98 - 110 mmol/L [facility] CO2 32 20 - 32 mmol/L [facility] CALCIUM 8.0(L) 8.6 - 10.4 mg/dL [facility] TOTAL PROTEIN 7.0 6.1 - 8.1 g/dL [facility] ALBUMIN 3.0(L) 3.6 - 5.1 g/dL [facility] GLOBULIN 4.0(H) 1.9 - 3.7 g/dL (calc) [facility] ALBUMIN/GLOBULIN RATIO 0.8(L) 1.0 - 2.5 (calc) [facility] BILIRUBIN TOTAL 1.3(H) 0.2 - 1.2 mg/dL [facility] ALKALINE PHOSPHATASE 174(H) 37 - 153 U/L [facility] AST 42(H) 10 - 35 U/L [facility] ALT 21 6 - 29 U/L [facility] Comment: Test Performed at: [facility] [address] [place] [address] Ilsa Hale MD Blood 10/11/2024 11:0 5 AM CDT 10/12/2024 9:39 AM CDT us Annum Cj OLIVEROS CHEMISTRY ORDERABLES Final Resul t [facility] [phone] [facility] [address] [place] [address] * (ABNORMAL) PROTEIN/CREATININE RATIO, URINE (10/09/2024 9:36 AM CDT) Only the most recent of3 resultswithin the time period is included. Pathologist [facility] PROTEIN CONCENTRATION 37(H) 0 - 20 mg/dL 10/09/2024 10:16 AM CDT [facility] CREATININE, URINE 220.0 29.0 - 226.0 mg/dL 10/09/2024 10:16 AM CDT [facility] Comment:Reference Range vari es with fluid intake and diet. PROTEIN/CREAT RATIO, URINE 0.17 0.00 - 0.19 mg/mg Creatinine 10/09/2024 10:16 AM CDT [facility] Urine URINE SPECIMEN OBTAINED BY CLEAN CATCH PROCEDURE / Unknown Collection / Unknown 10/09/2024 9:36 AM CDT 10/09/2024 9:58 AM CDT Annjacinta Corona MD URINE ORDERABLES Final Result [facility] CLIA# [id number] [facility] [address] [place] [address] * (ABNORMAL) CEA (10/09/2024 9:36 AM CDT) Only the most recent of3 resultswithin the time period is included. Pathologist [facility] CEA 32.8(H) See Note: ng/mL [facility] Comment: Reference Range: Non-Smoker: <2.5 Smoker: <5.0 This test was performed using the Siemens chemiluminescent method. Values obtained from different assay methods cannot be used interchangeably. CEA levels, regardless of value, should not be interpreted as absolute evidence of the presence or absence of disease. Test Performed at: [facility] [address] [place] [address] Ilsa Hale MD Blood 10/09/2024 9:36 AM CDT 10/09/2024 1:06 PM CDT Greg Corona MD CHEMISTRY ORDERABLES Final Resul t [facility] [phone] [facility] [address] [place] [address] * (ABNORMAL) LIPID PANEL (06/11/2024 1:14 PM 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) CHOLESTEROL 148 <200 mg/dL [facility] HDL 53 > OR = 50 mg/dL [facility] TRIGLYCERIDE 154(H) <150 mg/dL [facility] LDL CALCULATED 71 mg/dL (calc) [facility] Comment: Reference range: <100 Desirable range <100 mg/dL for primary prevention; <70 mg/dL for patients with CHD or diabetic patients with > or = 2 CHD risk factors. LDL-C is now calculated using the Bolivar-Alyssa calculation, which is a validated novel method providing better accuracy than the Friedewald equation in the estimation of LDL-C. Bolivar SS et al. URI. 2013;310(19): 8963-5421 (http://education.Pulian Software.Greenext/faq/RSG072) CHOL/HDL RATIO 2.8 <5.0 (calc) [facility] NON-HDL CHOLESTEROL 95 <130 mg/dL (calc) [facility] Comment: For patients with diabetes plus 1 major ASCVD risk factor, treating to a non-HDL-C goal of <100 mg/dL (LDL-C of <70 mg/dL) is considered a therapeutic option. Test Performed at: [facility] [address] [place] [address] Ilsa Hale MD Blood 06/11/2024 1:14 PM 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 06/11/2024 1:14 PM 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 Rosemary Herman CHEMISTRY ORDERABLES Final Result [facility] [phone] [facility] [address] [place] [address] * COLONOSCOPY REPORT (11/28/2023 12:19 PM CDT) Narrative Procedure Note Broderick Bryan DO - 11/28/2023 12:19 PM CDT [facility] GI Patient Name: Jessa Escalera Procedure Date: 11/28/2023 Date of : 1955 Admit Type: Outpatient Age: 68 Attending MD: Broderick Bryan DO, Procedure: Colonoscopy Indications: Iron deficiency anemia Providers: Broderick Bryan DO Referring MD: Amie Emery MD Medicines: Propofol per Anesthesia Complications: No immediate complications. Procedure: After I obtained informed consent, the scope was passed under direct vision. Throughout the procedure, the patient's blood pressure, pulse, and oxygen saturations were monitored continuously. The Colonoscope was introduced through the anus and advanced to the sigmoid colon. The colonoscopy was performed without difficulty. The patient tolerated the procedure well. The quality of the bowel preparation was adequate. Estimated Blood Loss: Estimated blood loss was minimal. Findings: A fungating partially obstructing large mass was found in the sigmoid colon. The mass was circumferential. No bleeding was present. Biopsies were taken with a cold forceps for histology. Area was successfully injected with 3 mL Trudi ink for tattooing. A 5 mm polyp was found in the rectum. The polyp was sessile. The polyp was removed with a cold snare. Resection and retrieval were complete. Internal hemorrhoids were found during retroflexion. The hemorrhoids were Grade I (internal hemorrhoids that do not prolapse). Impression: - Likely malignant partially obstructing tumor in the sigmoid colon. Biopsied. Injected. - One 5 mm polyp in the rectum, removed with a cold snare. Resected and retrieved. - Internal hemorrhoids. Recommendation: - Patient has a contact number available for emergencies. The signs and symptoms of potential delayed complications were discussed with the patient. Return to normal activities tomorrow. Written discharge instructions were provided to the patient. - Resume previous diet. - Continue present medications. - Repeat colonoscopy date to be determined after pending pathology results are reviewed for surveillance. Broderick Bryan, 11/28/2023 12:18:42 PM Number of Addenda: 0 Note Initiated On: 11/28/2023 11:10 AM Scope Withdrawal Time Scope In: 12:05:12 PM Scope Out: 12:16:08 PM [address] [place], [place] us Broderick Bryan DO GI PROCEDURE ORDERABLES Final Result * XR DEXA BONE DENSITY AXIAL 1 OR MORE SITES (02/28/2023 11:38 AM CDT) Anatomical Region Laterality Modality Other us Abstract Provider DIAGNOSTIC IMAGING ORDERABLES Final Result * MAMMO SCREEN BILAT W OR WO CAD (10/11/2022 11:39 AM CDT) Anatomical Region Laterality Modality Breast Bilateral Mammography us Abstract Provider MAMMO ORDERABLES Edited Result - Final * MICROALBUMIN/CREATININE RATIO, RANDOM UR (07/05/2022) ABSTRACTED MICROALBUMIN,URI NE 25.6 ABSTRACTED CREATININE, URINE ABSTRACTED MICROALBUMIN/CRE ATININE RATIO, URINE Urine URINE SPECIMEN OBTAINED BY CLEAN CATCH PROCEDURE / Unknown 07/05/2022 us Abstract Provider URINE ORDERABLES Final Result from Last 3 Months or Most Recently Relevant to Health Maintenance Insurance [place] [employer] [facility] RX [employer] Medicare Part D RX INFOCROSSING Medicaid Advance Directives For more information, please contact: [phone] * Full Code (Latest Code Status on File) Date Activated Date Inactivated Comments 03/26/2024 7:57 PM 04/05/2024 2:10 PM * Full Code Date Activated Date Inactivated Comments 01/05/2024 5:31 PM 01/09/2024 4:54 PM * Full Code Date Activated Date Inactivated Comments 01/05/2024 9:06 AM 01/05/2024 5:30 PM * Full Code Date Activated Date Inactivated Comments 11/28/2023 11:29 AM 11/28/2023 3:32 PM * Full Code Date Activated Date Inactivated Comments 10/07/2023 11:55 AM 10/12/2023 4:13 PM Care Teams Director Employee Communications Relationship Specialty Start Date End Date Rosemary Herman DO [address] [place] [address] PCP - General Family Practice 12/22/23
--- OUTSIDE RECORDS SUMMARY | 2024-11-13 20:33 | XMS_ITS | Encounter Summary ---
Author Organization [facility] Address [address] [place] [address] Care Team Providers Care Mobile Engineer Name Role Phone Amie Emery MD Primary Care Provider +1- [phone] Encounter Details Date Type Department Care Team (Latest Contact Info) Description 10/04/[address] 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
--- OUTSIDE RECORDS SUMMARY | 2024-11-13 20:33 | XMS_ITS | Encounter Summary ---
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) Social History Tobacco Use Types Packs/Day Years Used Date Smoking Tobacco: Never Assessed Comments Unknown Sex and Gender Information Value Date Recorded Sex Assigned at Not on file Legal Sex Female 6:22 AM PROGRAM MANAGER SLP Gender Identity Not on file Sexual Orientation Not on file documented as of this encounter Plan of Treatment Not on file documented as of this encounter Visit Diagnoses Diagnosis 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
--- OUTSIDE RECORDS SUMMARY | 2024-11-13 20:33 | XMS_ITS | Encounter Summary ---
Author Organization [facility] Address [address] [place] [address] Care Team Providers Care Beach Patrol Lieutenant Name Role Phone Amie Emery MD Primary Care Provider +1- [phone] Encounter Details Date Type Department Care Team (Latest Contact Info) Description 05/05/2006 Outpatient Historical [facility] Gen Spec Surg [place] 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
--- OUTSIDE RECORDS SUMMARY | 2024-11-13 20:34 | XMS_ITS ---
Author Organization [facility] Address [address] Attn: Epic Prelude ADT [place] [address] Care Team Providers Care Paint Pourer Name Role Phone Rosemary Herman DO Primary Care Provider [phone] Active Problems Problem Noted Date Diagnosed Date [...] and hyp ercapnia 10/22/2023 Panlobular emphysema 10/22/2023 detention resident 10/16/2023 Overview (10/16/2023): Trevor Snf Atrial fibrillation 10/07/2023 Overview (10/07/2023): With RVR [...] 12/20/2018 Adrenal adenoma 12/20/2018 Primary hyperparathyroidism 12/20/2018 Current Treatment and Therapy Plans OP ONC COLON_CAPECITABINE_OXALIPLATIN_EVERY 21 DAYS adding BEVACIZUMAB w/ cycle 8* Plan Start Date:02/28/2024 Plan Provider:Greg Corona MD Linked Problems Cancer of sigmoid colon (CMS /HCC) Treatment Medications Current Day (Day 1 , Cycle 10 - Planned for 10/09/2024) bevacizumab or biosimilarbev acizumab-awwb (MVASI) IVPBcapecitabine (XELODA)oxaliplatin (ELOXATIN) IVPB bevacizumab-awwb (MVASI) 397 mg in sodiu m chloride 0.9 % 100 mL IVPBcapecitabine 500 mg tablet (XELODA)oxaliplatin (ELOXATIN) 180 mg in dextrose 5 % 250 mL IVPB Past Treatment and Therapy Plans Lifetime Dose Tracking * Chemical Lifetime Dose Automatic Entry Manual Entr y Effective Dose 171.37 mSv 171.37 mSv 0 mSv Total DLP 12,691.76 DLP 12,691.76 DLP 0 DLP CTDIvol Max 307.75 mGy 307.75 mGy 0 mGy CTDIvol Min 222.4 mGy 222.4 mGy 0 mGy Resolved Problems Problem Noted Date Diagnosed Date Resolved Date Acute bronchitis 03/26/2024 04/05/2024 Abdominal pain 03/26/2024 04/05/2024 Bloating 03/26/2024 04/05/2024 Acute diarrhea 03/26/2024 04/05/2024 Acute on chronic heart failu re with preserved ejection fraction 10/07/2023 06/16/2024
--- OUTSIDE RECORDS SUMMARY | 2024-11-13 20:34 | XMS_ITS | Encounter Summary ---
Author Organization [facility] Address [address] [place] [address] Care Team Providers Care Stuffing Machine Operator Name Role Phone Amie Emery MD Primary Care Provider [phone]- [phone] Encounter Details Date Type Department Care Team (Late st Contact Info) Description 06/13/2006 Inpatient Historical [facility] Jimmy Bender MD NO ADDRESS ON FILE Benign Neoplasm of Adrenal Gland (Primary Dx) Social History Tobacco Use Types Packs/Day Years Used Date Smoking Tobacco: Never Assessed Comments Unknown Sex and Gender Information Value Date Recorded Sex Assigned at Not on file Legal Sex Female 6:22 AM CABLE WEAVER Gender Identity Not on file Sexual Orientation Not on file documented as of this encounter Plan of Treatment Not on file documented as of this encounter Procedures Procedure Name Priority Date/Time Associated Diagnosis Comments POC GLUCOSE Routine 06/14/2006 6:23 AM CABLE WEAVER POC GLUCOSE Routine 06/13/2006 9:49 AM CABLE WEAVER BASIC METABOLIC PANEL Routine 06/13/2006 5:40 AM CABLE WEAVER documented in this encounter Results * (ABNORMAL) POC GLUCOSE (06/14/2006 6:23 AM CABLE WEAVER) GLUCOSE POC 203(H) 60 - 100 mg/dL INTERFACE SYSTEM 06/14/2006 6:23 AM CABLE WEAVER us Jimmy Bender MD POINT OF CARE TESTING Edited INTERFACE SYSTEM Refer to clinic/hospital department * (ABNORMAL) POC GLUCOSE (06/13/2006 9:49 AM CABLE WEAVER) GLUCOSE POC 212(H) 60 - 100 mg/dL INTERFACE SYSTEM 06/13/2006 9:49 AM CABLE WEAVER Jimmy Bender MD POINT OF CARE TESTING Edited Performing Organization Address [facility] Phone Number INTERFACE SYSTEM Refer to clinic/hospital department * (ABNORMAL) BASIC METABOLIC PANEL (06/13/2006 5:40 AM CABLE WEAVER) GLUCOSE 149(H) 70 - 110 mg/dL INTERFACE SYSTEM BUN 12 7 - 17 mg/dL INTERFACE SYSTEM CREATININE 0.9 0.7 - 1.2 mg/dL INTERFACE SYSTEM SODIUM 142 136 - 145 mEq/L INTERFACE SYSTEM POTASSIUM 3.7 3.5 - 5.0 mEq/L INTERFACE SYSTEM CHLORIDE 106 95 - 110 mEq/L INTERFACE SYSTEM CO2 27 22 - 32 mmol/l INTERFACE SYSTEM CALCIUM 9.7 8.4 - 10.5 mg/dL INTERFACE SYSTEM ANION GAP 13 9 - 20 mEq/L INTERFACE SYSTEM OSMOLALITY, CALCULATED 294 275 - 295 mOsm/Kg INTERFACE SYSTEM 06/13/2006 5:40 AM CABLE WEAVER Jimmy Bender MD CHEMISTRY ORDERABLES Edited Performing Organization Address [facility] Phone Number INTERFACE SYSTEM Refer to clinic/hospital department documented in this encounter Visit Diagnoses Diagnosis Benign neoplasm of adrenal gland- Primary documented in this encounter Care Teams Stuffing Machine Operator Relationship Specialty Start Date End Date Amie Emery MD [address] [place] [address] PCP - General Internal Medicine 12/20/18 documented as of this encounter
--- OUTSIDE RECORDS SUMMARY | 2024-11-13 20:34 | XMS_ITS | Encounter Summary ---
Author Organization [facility] Address [address] [place] [address] Care Team Providers Care Steno Typist Name Role Phone Amie Emery MD Primary Care Provider +1- [phone] Encounter Details Date Type Department Care Team (Late st Contact Info) Description 08/30/2006 Outpatient Historical [facility] Social History Tobacco Use Types Packs/Day Years Used Date Smoking Tobacco: Never Assessed Comments Unknown Sex and Gender Information Value Date Recorded Sex Assigned at Not on file Legal Sex Female 6:22 AM COMMUNICATIONS OFFICER Gender Identity Not on file Sexual Orientation Not on file documented as of this encounter Plan of Treatment Not on file documented as of this encounter Visit Diagnoses Not on filedocumented in this encounter Care Teams Steno Typist Relationship Specialty Start Date End Date Amie Emery MD [address] [place] [address] PCP - General Internal Medicine 12/20/18 documented as of this encounter
--- OUTSIDE RECORDS SUMMARY | 2024-11-13 20:34 | XMS_ITS | Encounter Summary ---
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 Social History Tobacco Use Types Packs/Day Years Used Date Smoking Tobacco: Never Assessed Comments Unknown Sex and Gender Information Value Date Recorded Sex Assigned at Not on file Legal Sex Female 6:22 AM SKIP PIT WORKER Gender Identity Not on file Sexual Orientation Not on file documented as of this encounter Plan of Treatment Not on file documented as of this encounter Visit Diagnoses Diagnosis Type II or unspecified type diabetes mellitus without mention of complication, not stated as uncontrolled- Primary 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
--- OUTSIDE RECORDS SUMMARY | 2024-11-13 20:34 | XMS_ITS | Encounter Summary ---
Author Organization [facility] Address [address] [place] [address] Care Team Providers Care Flatwork Supervisor Name Role Phone Amie Emery MD Primary Care Provider +1- [phone] Encounter Details Date Type Department Care Team (Latest Contact Info) Description 07/31/2006 Outpatient Historical [facility] [address] [place] [address] Kristopher Armando MD NO ADDRESS ON FILE DM w/o Complication Type II, Uncontrolled (Primary Dx) Social History Tobacco Use Types Packs/Day Years Used Date Smoking Tobacco: Never Assessed Comments Unknown Sex and Gender Information Value Date Recorded Sex Assigned at Not on file Legal Sex Female 6:22 AM ATTACHE Gender Identity Not on file Sexual Orientation Not on file documented as of this encounter Plan of Treatment Not on file documented as of this encounter Visit Diagnoses Diagnosis Type II or unspecified type diabetes mellitus without mention of complication, uncontrolled- Primary documented in this encounter Care Teams Flatwork Supervisor Relationship Specialty Start Date End Date Amie Emery MD [address] [place] [address] PCP - General Internal Medicine 12/20/18 documented as of this encounter
--- OUTSIDE RECORDS SUMMARY | 2024-11-13 20:34 | XMS_ITS | Encounter Summary ---
Author Organization [facility] Address [address] [place] [address] Care Team Providers Care Cloth Shrinking Tester Name Role Phone Amie Emery MD Primary Care Provider +1- [phone] Encounter Details Date Type Department Care Team (Latest Contact Info) Description 08/30/2006 Outpatient Historical [facility] Endocrinology-[place] [place] [address] [place] [address] Kristopher Armando MD NO ADDRESS ON FILE DM w/o Complication Type II (CMS/HCC) (Primary Dx) Social History Tobacco Use Types Packs/Day Years Used Date Smoking Tobacco: Never Assessed Comments Unknown Sex and Gender Information Value Date Recorded Sex Assigned at Not on file Legal Sex Female 6:22 AM MANAGER LIFE SCIENCES Gender Identity Not on file Sexual Orientation Not on file documented as of this encounter Plan of Treatment Not on file documented as of this encounter Visit Diagnoses Diagnosis Type II or unspecified type diabetes mellitus without mention of complication, not stated as uncontrolled- Primary documented in this encounter Care Teams Cloth Shrinking Tester Relationship Specialty Start Date End Date Amie Emery MD [address] [place] [address] PCP - General Internal Medicine 12/20/18 documented as of this encounter
--- OUTSIDE RECORDS SUMMARY | 2024-11-13 20:34 | XMS_ITS | Encounter Summary ---
Author Organization [facility] Address [address] [place] [address] Care Team Providers Care Sheetmetal Trades Worker Name Role Phone Amie Emery MD Primary Care Provider [phone] Encounter Details Date Type Department Care Team (Late st Contact Info) Description 06/23/2006 Inpatient Historical HIS IN BED Ravin Higgins MD NO ADDRESS ON FILE Infer AMI NEC, Init Episd (CMS/HCC) (Primary Dx) Social History Tobacco Use Types Packs/Day Years Used Date Smoking Tobacco: Never Assessed Comments Unknown Sex and Gender Information Value Date Recorded Sex Assigned at Not on file Legal Sex Female 6:22 AM BIOLOGY PROFESSOR Gender Identity Not on file Sexual Orientation Not on file documented as of this encounter Plan of Treatment Not on file documented as of this encounter Procedures Procedure Name Priority Date/Time Associated Diagnosis Comments POC GLUCOSE Routine 06/26/2006 5:11 AM BIOLOGY PROFESSOR BASIC METABOLIC PANEL Routine 06/26/2006 4:52 AM BIOLOGY PROFESSOR POC GLUCOSE Routine 06/25/2006 8:44 PM BIOLOGY PROFESSOR POC GLUCOSE Routine 06/25/2006 5:45 PM BIOLOGY PROFESSOR POC GLUCOSE Routine 06/25/2006 11:40 AM BIOLOGY PROFESSOR POC GLUCOSE Routine 06/25/2006 5:30 AM BIOLOGY PROFESSOR CBC WITH DIFFERENTIAL Routine 06/25/2006 4:50 AM BIOLOGY PROFESSOR HEPATIC FUNCTION PANEL Routine 06/25/2006 4:50 AM BIOLOGY PROFESSOR BASIC METABOLIC PANEL Routine 06/25/2006 4:50 AM BIOLOGY PROFESSOR POC GLUCOSE Routine 06/24/2006 8:52 PM BIOLOGY PROFESSOR POC GLUCOSE Routine 06/24/2006 5:55 PM BIOLOGY PROFESSOR POC GLUCOSE Routine 06/24/2006 12:38 PM BIOLOGY PROFESSOR POC GLUCOSE Routine 06/23/2006 9:25 PM BIOLOGY PROFESSOR CK TOTAL, RELATIVE INDEX Routine 06/23/2006 4:54 PM BIOLOGY PROFESSOR CARDIAC ENZYMES Routine 06/23/2006 4:54 PM BIOLOGY PROFESSOR CK Routine 06/23/2006 4:54 PM BIOLOGY PROFESSOR POC GLUCOSE Routine 06/23/2006 4:42 PM BIOLOGY PROFESSOR CK TOTAL, RELATIVE INDEX Routine 06/23/2006 10:59 AM BIOLOGY PROFESSOR CARDIAC ENZYMES Routine 06/23/2006 10:59 AM BIOLOGY PROFESSOR CK Routine 06/23/2006 10:59 AM BIOLOGY PROFESSOR POC GLUCOSE Routine 06/23/2006 10:51 AM BIOLOGY PROFESSOR POC GLUCOSE Routine 06/23/2006 8:16 AM BIOLOGY PROFESSOR POC ACTIVATED CLOTTING TIME Routine 06/23/2006 7:34 AM BIOLOGY PROFESSOR LIPID PANEL Routine 06/23/2006 6:03 AM BIOLOGY PROFESSOR CARDIAC ENZYMES Routine 06/23/2006 2:43 AM BIOLOGY PROFESSOR CBC WITH DIFFERENTIAL Routine 06/23/2006 2:43 AM BIOLOGY PROFESSOR PTT Routine 06/23/2006 2:43 AM BIOLOGY PROFESSOR PROTIME-INR Routine 06/23/2006 2:43 AM BIOLOGY PROFESSOR BASIC METABOLIC PANEL Routine 06/23/2006 2:43 AM BIOLOGY PROFESSOR documented in this encounter Results * (ABNORMAL) POC GLUCOSE (06/26/2006 5:11 AM BIOLOGY PROFESSOR) GLUCOSE POC 147(H) 60 - 100 mg/dL INTERFACE SYSTEM 06/26/2006 5:11 AM BIOLOGY PROFESSOR us Ravin Higgins MD POINT OF CARE TESTING Edited Performing Organization Address [facility] de Phone Number INTERFACE SYSTEM Refer to clinic/hospital department * (ABNORMAL) BASIC METABOLIC PANEL (06/26/2006 4:52 AM BIOLOGY PROFESSOR) GLUCOSE 138(H) 70 - 110 mg/dL INTERFACE SYSTEM BUN 16 7 - 17 mg/dL INTERFACE SYSTEM CREATININE 0.8 0.7 - 1.2 mg/dL INTERFACE SYSTEM SODIUM 140 136 - 145 mEq/L INTERFACE SYSTEM POTASSIUM 4.1 3.5 - 5.0 mEq/L INTERFACE SYSTEM CHLORIDE 106 95 - 110 mEq/L INTERFACE SYSTEM CO2 25 22 - 32 mmol/l INTERFACE SYSTEM CALCIUM 9.2 8.4 - 10.5 mg/dL INTERFACE SYSTEM ANION GAP 13 9 - 20 mEq/L INTERFACE SYSTEM OSMOLALITY, CALCULATED 291 275 - 295 mOsm/Kg INTERFACE SYSTEM 06/26/2006 4:52 AM BIOLOGY PROFESSOR us Ravin Higgins MD CHEMISTRY ORDERABLES Edited Performing Organization Address [facility] de Phone Number INTERFACE SYSTEM Refer to clinic/hospital department * (ABNORMAL) POC GLUCOSE (06/25/2006 8:44 PM BIOLOGY PROFESSOR) GLUCOSE POC 167(H) 60 - 100 mg/dL INTERFACE SYSTEM 06/25/2006 8:44 PM BIOLOGY PROFESSOR us Ravin Higgins MD POINT OF CARE TESTING Edited Performing Organization Address [facility] de Phone Number INTERFACE SYSTEM Refer to clinic/hospital department * (ABNORMAL) POC GLUCOSE (06/25/2006 5:45 PM BIOLOGY PROFESSOR) GLUCOSE POC 107(H) 60 - 100 mg/dL INTERFACE SYSTEM 06/25/2006 5:45 PM BIOLOGY PROFESSOR Ravin Higgins MD POINT OF CARE TESTING Edited Performing Organization Address City/State/[facility] Co de Phone Number INTERFACE SYSTEM Refer to clinic/hospital department * (ABNORMAL) POC GLUCOSE (06/25/2006 11:40 AM BIOLOGY PROFESSOR) GLUCOSE POC 195(H) 60 - 100 mg/dL INTERFACE SYSTEM 06/25/2006 11:4 0 AM BIOLOGY PROFESSOR Ravin Higgins MD POINT OF CARE TESTING Edited Performing Organization Address [facility] de Phone Number INTERFACE SYSTEM Refer to clinic/hospital department * (ABNORMAL) POC GLUCOSE (06/25/2006 5:30 AM BIOLOGY PROFESSOR) GLUCOSE POC 142(H) 60 - 100 mg/dL INTERFACE SYSTEM 06/25/2006 5:30 AM BIOLOGY PROFESSOR Ravin Higgins MD POINT OF CARE TESTING Edited Performing Organization Address [facility] de Phone Number INTERFACE SYSTEM Refer to clinic/hospital department * (ABNORMAL) CBC WITH DIFFERENTIAL (06/25/2006 4:50 AM BIOLOGY PROFESSOR) WBC 9.0 4.8 - 10.8 K/ul INTERFACE SYSTEM RBC 3.79(L) 4.20 - 5.40 Mil/ul INTERFACE SYSTEM HEMOGLOBIN 13.3 12.0 - 16.0 g/dL INTERFACE SYSTEM HEMATOCRIT 37.0 36.0 - 46.0 % INTERFACE SYSTEM MCV 97.6 84.0 - 103.0 Fl INTERFACE SYSTEM MCH 35.1(H) 27.0 - 34.0 pg INTERFACE SYSTEM MCHC 35.9(H) 30.0 - 35.0 g/dL INTERFACE SYSTEM RDW 12.6 11.0 - 14.5 % INTERFACE SYSTEM PLATELETS 227 140 - 440 K/ul INTERFACE SYSTEM MPV 9.8 8.9 - 12.8 Fl INTERFACE SYSTEM NEUTROPHILS 49.6 42.2 - 75.2 % INTERFACE SYSTEM LYMPHOCYTES 35.9 24.0 - 44.0 % INTERFACE SYSTEM MONOCYTES 8.1 2.0 - 10.0 % INTERFACE SYSTEM EOSINOPHILS 5.8 0.0 - 7.0 % INTERFACE SYSTEM BASOPHILS 0.6 0.0 - 1.0 % INTERFACE SYSTEM NEUTROPHIL ABSOLUTE 4.4 2.0 - 8.0 K/uL INTERFACE SYSTEM LYMPHOCYTE ABSOLUTE 3.2 1.2 - 4.0 K/ul INTERFACE SYSTEM MONOCYTE ABSOLUTE 0.7(H) 0.1 - 0.6 K/ul INTERFACE SYSTEM EOSINOPHIL ABSOLUTE 0.5 0.0 - 0.7 K/ul INTERFACE SYSTEM BASOPHILS ABSOLUTE 0.1 0.0 - 0.2 K/ul INTERFACE SYSTEM 06/25/2006 4:50 AM BIOLOGY PROFESSOR Ravin Higgins MD HEMATOLOGY ORDERABLES Edited Performing Organization Address [facility] Phone Number INTERFACE SYSTEM Refer to clinic/hospital department * (ABNORMAL) BASIC METABOLIC PANEL (06/25/2006 4:50 AM BIOLOGY PROFESSOR) GLUCOSE 157(H) 70 - 110 mg/dL INTERFACE SYSTEM BUN 14 7 - 17 mg/dL INTERFACE SYSTEM CREATININE 0.8 0.7 - 1.2 mg/dL INTERFACE SYSTEM SODIUM 139 136 - 145 mEq/L INTERFACE SYSTEM POTASSIUM 3.4(L) 3.5 - 5.0 mEq/L INTERFACE SYSTEM CHLORIDE 105 95 - 110 mEq/L INTERFACE SYSTEM CO2 28 22 - 32 mmol/l INTERFACE SYSTEM CALCIUM 9.2 8.4 - 10.5 mg/dL INTERFACE SYSTEM ANION GAP 9 9 - 20 mEq/L INTERFACE SYSTEM OSMOLALITY, CALCULATED 289 275 - 295 mOsm/Kg INTERFACE SYSTEM 06/25/2006 4:50 AM BIOLOGY PROFESSOR Ravin Higgins MD CHEMISTRY ORDERABLES Edited Performing Organization Address [facility] Phone Number INTERFACE SYSTEM Refer to clinic/hospital department * (ABNORMAL) HEPATIC FUNCTION PANEL (06/25/2006 4:50 AM BIOLOGY PROFESSOR) TOTAL PROTEIN 6.5 6.3 - 8.2 g/dL INTERFACE SYSTEM ALBUMIN 3.9 3.5 - 5.0 g/dL INTERFACE SYSTEM ALKALINE PHOSPHATASE 161(H) 25 - 100 U/L INTERFACE SYSTEM AST 54(H) 8 - 33 U/L INTERFACE SYSTEM ALT 34 4 - 36 IU/L INTERFACE SYSTEM BILIRUBIN TOTAL 0.4 0.3 - 1.2 mg/dL INTERFACE SYSTEM BILIRUBIN DIRECT 0.1 0.0 - 0.4 mg/dL INTERFACE SYSTEM 06/25/2006 4:50 AM BIOLOGY PROFESSOR Ravin Higgins MD CHEMISTRY ORDERABLES Edited Performing Organization Address [facility] Phone Number INTERFACE SYSTEM Refer to clinic/hospital department * (ABNORMAL) POC GLUCOSE (06/24/2006 8:52 PM BIOLOGY PROFESSOR) GLUCOSE POC 228(H) 60 - 100 mg/dL INTERFACE SYSTEM 06/24/2006 8:52 PM BIOLOGY PROFESSOR Ravin Higgins MD POINT OF CARE TESTING Edited Performing Organization Address [facility] de Phone Number INTERFACE SYSTEM Refer to clinic/hospital department * (ABNORMAL) POC GLUCOSE (06/24/2006 5:55 PM BIOLOGY PROFESSOR) GLUCOSE POC 114(H) 60 - 100 mg/dL INTERFACE SYSTEM 06/24/2006 5:55 PM BIOLOGY PROFESSOR us Ravin Higgins MD POINT OF CARE TESTING Edited Performing Organization Address [facility] Phone Number INTERFACE SYSTEM Refer to clinic/hospital department * (ABNORMAL) POC GLUCOSE (06/24/2006 12:38 PM BIOLOGY PROFESSOR) GLUCOSE POC 168(H) 60 - 100 mg/dL INTERFACE SYSTEM 06/24/2006 12:3 8 PM BIOLOGY PROFESSOR us Ravin Higgins MD POINT OF CARE TESTING Edited Performing Organization Address [facility] de Phone Number INTERFACE SYSTEM Refer to clinic/hospital department * (ABNORMAL) POC GLUCOSE (06/23/2006 9:25 PM BIOLOGY PROFESSOR) GLUCOSE POC 174(H) 60 - 100 mg/dL INTERFACE SYSTEM 06/23/2006 9:25 PM BIOLOGY PROFESSOR Ravin Higgins MD POINT OF CARE TESTING Edited Performing Organization Address [facility] Phone Number INTERFACE SYSTEM Refer to clinic/hospital department * (ABNORMAL) CK TOTAL, RELATIVE INDEX (06/23/2006 4:54 PM BIOLOGY PROFESSOR) CK-MB CHEMICAL INDEX 13.1(H) 0.0 - 4.5 INTERFACE SYSTEM 06/23/2006 4:54 PM BIOLOGY PROFESSOR Asim Lan DO CHEMISTRY ORDERABLES Ed ited Performing Organization Address [facility] Phone Number INTERFACE SYSTEM Refer to clinic/hospital department * (ABNORMAL) CK (06/23/2006 4:54 PM BIOLOGY PROFESSOR) CK 1,317(H) 26 - 140 U/L INTERFACE SYSTEM Comment: As of 05 the [facility] has changed testing methods. The new reference ranges are Males 38-174 Females 26-140 The old referance ranges were Males 0-155 Females 0-133 06/23/2006 4:54 PM BIOLOGY PROFESSOR Asim Lan DO CHEMISTRY ORDERABLES Ed ited Performing Organization Address [facility] Phone Number INTERFACE SYSTEM Refer to clinic/hospital department * (ABNORMAL) CARDIAC ENZYMES (06/23/2006 4:54 PM BIOLOGY PROFESSOR) TROPONIN I 43.6(AA) 0.0 - 1.5 ng/mL INTERFACE SYSTEM Comment: Potentially critical/toxic troponin called by rr nnamdi langley, with verbal read back, at 06/23/2006 17:46. CKMB 172.0(H) 0.0 - 5.0 ng/mL INTERFACE SYSTEM 06/23/2006 4:54 PM BIOLOGY PROFESSOR Asim Lan DO CHEMISTRY ORDERABLES Ed ited Performing Organization Address [facility] Phone Number INTERFACE SYSTEM Refer to clinic/hospital department * (ABNORMAL) POC GLUCOSE (06/23/2006 4:42 PM BIOLOGY PROFESSOR) GLUCOSE POC 108(H) 60 - 100 mg/dL INTERFACE SYSTEM 06/23/2006 4:42 PM BIOLOGY PROFESSOR Ravin Higgins MD POINT OF CARE TESTING Edited Performing Organization Address [facility] Phone Number INTERFACE SYSTEM Refer to clinic/hospital department * (ABNORMAL) CK TOTAL, RELATIVE INDEX (06/23/2006 10:59 AM BIOLOGY PROFESSOR) CK-MB CHEMICAL INDEX 14.7(H) 0.0 - 4.5 INTERFACE SYSTEM 06/23/2006 10:5 9 AM BIOLOGY PROFESSOR Asim Lan DO CHEMISTRY ORDERABLES Ed ited Performing Organization Address [facility] Phone Number INTERFACE SYSTEM Refer to clinic/hospital department * (ABNORMAL) CK (06/23/2006 10:59 AM BIOLOGY PROFESSOR) CK 1,318(H) 26 - 140 U/L INTERFACE SYSTEM Comment: As of 05 the [facility] has changed testing methods. The new reference ranges are Males 38-174 Females 26-140 The old referance ranges were Males 0-155 Females 0-133 06/23/2006 10:5 9 AM BIOLOGY PROFESSOR Asim Lan DO CHEMISTRY ORDERABLES Ed ited Performing Organization Address [facility] Phone Number INTERFACE SYSTEM Refer to clinic/hospital department * (ABNORMAL) CARDIAC ENZYMES (06/23/2006 10:59 AM BIOLOGY PROFESSOR) TROPONIN I 43.3(AA) 0.0 - 1.5 ng/mL INTERFACE SYSTEM Comment: Potentially critical/toxic TROP called by RENA to CARI LANGLEY, with verbal read back, at 1139. CKMB 194.2(H) 0.0 - 5.0 ng/mL INTERFACE SYSTEM 06/23/2006 10:5 9 AM BIOLOGY PROFESSOR Asim Lan DO CHEMISTRY ORDERABLES Ed ited Performing Organization Address City/[facility] de Phone Number INTERFACE SYSTEM Refer to clinic/hospital department * (ABNORMAL) POC GLUCOSE (06/23/2006 10:51 AM BIOLOGY PROFESSOR) GLUCOSE POC 179(H) 60 - 100 mg/dL INTERFACE SYSTEM 06/23/2006 10:5 1 AM BIOLOGY PROFESSOR Ravin Higgins MD POINT OF CARE TESTING Edited Performing Organization Address [facility] de Phone Number INTERFACE SYSTEM Refer to clinic/hospital department * (ABNORMAL) POC GLUCOSE (06/23/2006 8:16 AM BIOLOGY PROFESSOR) GLUCOSE POC 163(H) 60 - 100 mg/dL INTERFACE SYSTEM 06/23/2006 8:16 AM BIOLOGY PROFESSOR Ravin Higgins MD POINT OF CARE TESTING Edited Performing Organization Address [facility] Phone Number INTERFACE SYSTEM Refer to clinic/hospital department * (ABNORMAL) POC ACTIVATED CLOTTING TIME (06/23/2006 7:34 AM BIOLOGY PROFESSOR) ACT POC 150(H) 79 - 149 sec INTERFACE SYSTEM 06/23/2006 7:34 AM BIOLOGY PROFESSOR Ravin Higgins MD POINT OF CARE TESTING Edited Performing Organization Address [facility] de Phone Number INTERFACE SYSTEM Refer to clinic/hospital department * LIPID PANEL (06/23/2006 6:03 AM BIOLOGY PROFESSOR) CHOLESTEROL 192 75 - 200 mg/dL INTERFACE SYSTEM HDL 48 40 - 60 mg/dL INTERFACE SYSTEM TRIGLYCERIDE 184 0 - 200 mg/dL INTERFACE SYSTEM CALCULATED LDL CHOLESTEROL 107 0 - 130 mg/dL INTERFACE SYSTEM CALCULATED TOTAL CHOLESTEROL TO HDL RATIO 4.00 3.27 - 4.44 INTERFACE SYSTEM 06/23/2006 6:03 AM BIOLOGY PROFESSOR Ravin Higgins MD CHEMISTRY ORDERABLES Edited INTERFACE SYSTEM Refer to clinic/hospital department * (ABNORMAL) CBC WITH DIFFERENTIAL (06/23/2006 2:43 AM BIOLOGY PROFESSOR) WBC 19.2(H) 4.8 - 10.8 K/ul INTERFACE SYSTEM RBC 4.27(L) 4.60 - 6.20 Mil/ul INTERFACE SYSTEM HEMOGLOBIN 14.8 14.0 - 18.0 g/dL INTERFACE SYSTEM HEMATOCRIT 42.3 41.0 - 53.0 % INTERFACE SYSTEM MCV 99.1 84.0 - 103.0 Fl INTERFACE SYSTEM MCH 34.7(H) 27.0 - 34.0 pg INTERFACE SYSTEM MCHC 35.0 30.0 - 35.0 g/dL INTERFACE SYSTEM RDW 12.7 11.0 - 14.5 % INTERFACE SYSTEM PLATELETS 301 140 - 440 K/ul INTERFACE SYSTEM MPV 9.8 8.9 - 12.8 Fl INTERFACE SYSTEM NEUTROPHILS 63.0 42.2 - 75.2 % INTERFACE SYSTEM LYMPHOCYTES 26.8 24.0 - 44.0 % INTERFACE SYSTEM MONOCYTES 7.6 2.0 - 10.0 % INTERFA CE SYSTEM EOSINOPHILS 2.2 0.0 - 7.0 % INTERF LEIA SYSTEM BASOPHILS 0.4 0.0 - 1.0 % INTERFAC E SYSTEM NEUTROPHIL ABSOLUTE 12.1(H) 2.0 - 8.0 K/uL INTERFACE SYSTEM LYMPHOCYTE ABSOLUTE 5.1(H) 1.2 - 4.0 K/ul INTERFACE SYSTEM MONOCYTE ABSOLUTE 1.5(H) 0.1 - 0.6 K/ul INTERFACE SYSTEM EOSINOPHIL ABSOLUTE 0.4 0.0 - 0.7 K/ul INTERFACE SYSTEM BASOPHILS ABSOLUTE 0.1 0.0 - 0.2 K/ul INTERFACE SYSTEM PERIPHERAL BLOOD SMEAR REVIEW Automated Diff Automated Diff INTERFACE SYSTEM 06/23/2006 2:43 AM BIOLOGY PROFESSOR Asim Lan DO HEMATOLOGY ORDERABLES F inal Result Performing Organization Address City/[facility]/ZIP Co de Phone Number INTERFACE SYSTEM Refer to clinic/hospital department * PTT (06/23/2006 2:43 AM BIOLOGY PROFESSOR) PTT 24.3 21.6 - 35.6 Secs INTERFACE SYSTEM Comment: Therapeutic Range: Hi-level PE/DVT heparin protocol 80.1 -95.0 sec Lo-level PE/DVT heparin protocol 67.1 - 80.0 sec Cardiac Heparin Protocol 67.1 - 85.0 sec Neuro Heparin Protocol 67.1 - 80.0 sec As of 04/06/2006 note change in APTT Normal Range. 06/23/2006 2:43 AM BIOLOGY PROFESSOR Asim Lan DO HEMATOLOGY ORDERABLES E dited Performing Organization Address [facility] Phone Number INTERFACE SYSTEM Refer to clinic/hospital department * PROTIME-INR (06/23/2006 2:43 AM BIOLOGY PROFESSOR) Pathologist [facility] PROTIME 14.2 13.0 - 15.7 Secs INTERFACE SYSTEM Comment: As of 06 note change in normal range. INR 1.0 INTERFACE SYSTEM Comment: Expected Values for INR: DVT/PE Goal INR 2.5; range 2.0 - 3.0 Valve Replacement Tissue Goal INR 2.5; range 2.0 - 3.0 Mechanical Goal INR 3.0; range 2.5 - 3.5 POST-OH Goal INR 2.5; range 2.0 - 3.0 or Goal 3.0; range 2.5 - 3.5 Atrial Fibrillation Goal INR 2.5; range 2.0 - 3.0 Ischemic Stroke Goal INR 2.5; range 2.0 - 3.0 For additional information see Guidelines for Anticoagulation available from the pharmacy Gabriela Ding. 06/23/2006 2:43 AM BIOLOGY PROFESSOR Asim Lan DO HEMATOLOGY ORDERABLES E dited Performing Organization Address [facility] Phone Number INTERFACE SYSTEM Refer to clinic/hospital department * (ABNORMAL) BASIC METABOLIC PANEL (06/23/2006 2:43 AM BIOLOGY PROFESSOR) GLUCOSE 311(H) 70 - 110 mg/dL INTERFACE SYSTEM BUN 21(H) 7 - 17 mg/dL INTERFACE SYSTEM CREATININE 1.2 0.7 - 1.2 mg/dL INTERFACE SYSTEM SODIUM 142 136 - 145 mEq/L INTERFACE SYSTEM POTASSIUM 3.9 3.5 - 5.0 mEq/L INTERFACE SYSTEM CHLORIDE 105 95 - 110 mEq/L INTERFACE SYSTEM CO2 26 22 - 32 mmol/l INTERFACE SYSTEM CALCIUM 9.4 8.4 - 10.5 mg/dL INTERFACE SYSTEM ANION GAP 15 9 - 20 mEq/L INTERFACE SYSTEM OSMOLALITY, CALCULATED 306(H) 275 - 295 mOsm/Kg INTERFACE SYSTEM 06/23/2006 2:43 AM BIOLOGY PROFESSOR Asim Lan DO CHEMISTRY ORDERABLES Ed ited Performing Organization Address City/[facility] Co de Phone Number INTERFACE SYSTEM Refer to clinic/hospital department * CARDIAC ENZYMES (06/23/2006 2:43 AM BIOLOGY PROFESSOR) TROPONIN I <0.1 0.0 - 1.5 ng/mL INTERFACE SYSTEM CKMB 0.6 0.0 - 5.0 ng/mL INTERFACE SYSTEM 06/23/2006 2:43 AM BIOLOGY PROFESSOR Asim Lan DO CHEMISTRY ORDERABLES Ed ited Performing Organization Address City/[facility]/ZIP Co de Phone Number INTERFACE SYSTEM Refer to clinic/hospital department documented in this encounter Visit Diagnoses Diagnosis Acute myocardial infarction of other inferior wall, initial episode of care ([facility])- Primary Acute myocardial infarction of other inferior wall, initial episode of care documented in this encounter Care Teams Sheetmetal Trades Worker Relationship Specialty Start Date End Date Amie Emery MD [address] [place] [id number] PCP - General Internal Medicine 12/20/18 documented as of this encounter
--- OUTSIDE RECORDS SUMMARY | 2024-11-13 20:34 | XMS_ITS | Encounter Summary ---
Author Organization [facility] Address [address] [place] [address] Care Team Providers Care Sprinkler Installer Name Role Phone Rosemary Herman Primary Care Provider Encounter Details Date Type Department Care Team (Late Contact Info) Description 10/14/2024 Results Follow-Up [facility] [address] [place] [address] Art Buchanan FNP [address] [place] [address] HEMOGLOBIN A1C Social History Tobacco Use Types Packs/Day Years Used Date Smoking Tobacco: Every Day Cigarettes Passive Smoke Exposure: Current Smokeless Tobacco: Former Alcohol Use Standard Drinks/Week Comments Not Currently 0 (1 standard drink = 0.6 oz pur e alcohol) Comments No Sex and Gender Information Value Date Recorded Sex Assigned at Not on file Legal Sex Female 1:22 PM BUNKER WORKER Gender Identity Not on file Sexual Orientation Not on file documented as of this encounter Plan of Treatment Upcoming Encounters Date Type Department Care Team (Late Contact Info) Description 01/13/2025 10:20 AM CDT Office Visit [facility] [address] [place] [address] Art Buchanan FNP [address] [place] [address] 03/19/2025 8:40 AM BUNKER WORKER Office Visit [facility] [address] [place] [facility] [place] [address] Rosemary Herman DO [address] [place] [phone] documented as of this encounter Visit Diagnoses Not on filedocumented in this encounter Care Teams Sprinkler Installer Relationship Specialty Start Date End Date Rosemary Herman DO [address] [place] [facility] [place] [phone] PCP - General Family Practice 12/22/23 documented as of this encounter
--- OUTSIDE RECORDS SUMMARY | 2024-11-13 20:34 | XMS_ITS | Encounter Summary ---
Author Organization [facility] Address [address] [place] [address] Care Team Providers Care Sandblaster Stone Name Role Phone Rosemary Herman DO Primary Care Provider [phone] Encounter Details Date Type Department Care Team (Late Contact Info) Description 11/13/2024 External Device Data [place] ABSTRACTION Provider, Abstract NO ADDRESS ON FILE Social History Tobacco Use Types Packs/Day Years Used Date Smoking Tobacco: Every Day Cigarettes Passive Smoke Exposure: Current Smokeless Tobacco: Former Alcohol Use Standard Drinks/Week Comments Not Currently 0 (1 standard drink = 0.6 oz pur e alcohol) Comments No Sex and Gender Information Value Date Recorded Sex Assigned at Not on file Legal Sex Female 1:22 PM ENGLISH FACULTY MEMBER Gender Identity Not on file Sexual Orientation Not on file documented as of this encounter Plan of Treatment Upcoming Encounters Date Type Department Care Team (Late Contact Info) Description 01/13/2025 10:20 AM CDT Office Visit [facility] [address] [place] [phone] Art Buchanan FNP [address] [place] [address] 03/19/2025 8:40 AM ENGLISH FACULTY MEMBER Office Visit [facility] [address] [place] [phone] Rosemary Herman DO [address] [place] [phone] documented as of this encounter Visit Diagnoses Not on filedocumented in this encounter Care Teams Sandblaster Stone Relationship Specialty Start Date End Date Rosemary Herman DO [address] [place] [address] PCP - General Family Practice 12/22/23 documented as of this encounter
--- OUTSIDE RECORDS SUMMARY | 2024-11-13 20:34 | XMS_ITS | Encounter Summary ---
Author Organization [facility] Address [address] [place] [address] Care Team Providers Care Infection Control Preventionist Name Role Phone Amie Emery MD Primary Care Provider [phone] Encounter Details Date Type Department Care Team (Late st Contact Info) Description 08/30/2006 Outpatient Historical [facility] Social History Tobacco Use Types Packs/Day Years Used Date Smoking Tobacco: Never Assessed Comments Unknown Sex and Gender Information Value Date Recorded Sex Assigned at Not on file Legal Sex Female 6:22 AM MACHINE GUNNER Gender Identity Not on file Sexual Orientation Not on file documented as of this encounter Plan of Treatment Not on file documented as of this encounter Visit Diagnoses Not on filedocumented in this encounter Care Teams Infection Control Preventionist Relationship Specialty Start Date End Date Amie Emery MD [address] [place] [address] PCP - General Internal Medicine 12/20/18 documented as of this encounter
--- OUTSIDE RECORDS SUMMARY | 2024-11-13 20:34 | XMS_ITS | Encounter Summary ---
Author Organization Address [address] [place] [address] Care Team Providers Care Visual Developer Name Role Phone Rosemary Herman Primary Care Provider Encounter Details Date Type Department Care Team (Late Contact Info) Description 11/04/2024 Results Follow-Up [facility] Cancer and Hematology [place] [address] [place] [address] Greg Corona MD [address] [place] [address] [address] CHEST ABDOMEN PELVIS W CONT Social History Tobacco Use Types Packs/Day Years Used Date Smoking Tobacco: Every Day Cigarettes Passive Smoke Exposure: Current Smokeless Tobacco: Former Alcohol Use Standard Drinks/Week Comments Not Currently 0 (1 standard drink = 0.6 oz pur e alcohol) Comments No Sex and Gender Information Value Date Recorded Sex Assigned at Not on file Legal Sex Female 1:22 PM DIE FILER Gender Identity Not on file Sexual Orientation Not on file documented as of this encounter Miscellaneous Notes * Result Encounter Note - Greg Corona MD - 11/04/2024 10:29 AM CDT On-going response to treatment, documented in this encounter Plan of Treatment Upcoming Encounters Date Type Department Care Team (Late st Contact Info) Description 01/13/2025 10:20 AM CDT Office Visit [facility] [address] [place] [address] Art Buchanan, [facility] [address] [place] [address] 03/19/2025 8:40 AM DIE FILER Office Visit [facility] [address] [place] [address] Rosemary Herman DO [address] [place] [address] documented as of this encounter Visit Diagnoses Not on filedocumented in this encounter Care Teams Visual Developer Relationship Specialty Start Date End Date Rosemary Herman DO [address] [place] [id number] PCP - General Family Practice 12/22/23 documented as of this encounter
[2024-11-13 20:50] VITALS: BP 176/127; PULSE 101; O2SAT 91
[2024-11-13 22:00] VITALS: BP 186/124; PULSE 92; O2SAT 91
[2024-11-13 22:02] LABS: Alanine Aminotransferase 23 U/L (0-33); Albumin Level 3.2 g/dL (3.5-5.2); Alkaline Phosphatase 179 U/L (35-105); Anion Gap 15.0 (5-19); Aspartate Amino Transferase 40 U/L (0-32); Blood Urea Nitrogen 8 mg/dL (8-23); Calcium 7.9 mg/dL (8.5-10.5); Carbon Dioxide 30 mmol/L (22-29); Chloride 99 mmol/L (98-107); Creatinine Clr Calc Pharmacy 60.1597; Globulin 4.2 g/dL (1.3-4.6); Glucose 131 mg/dL (65-115); Lipase 18 U/L (13-60); Osmolality Calculated 292 mOsm/kg (285-295); Potassium 3.0 mmol/L (3.5-5.1); Sodium 141 mmol/L (136-145); Total Protein 7.4 g/dL (6.6-8.7)
[2024-11-13 22:29] LABS: Hematocrit 41.7 % (36-47); Hemoglobin 14.50 g/dL (11.27-16.99); Mean Corpuscular HGB Conc 34.8 g/dL (30-55); Mean Corpuscular Hemoglobin 39.9 pg (27-33); Mean Corpuscular Volume 114.9 fl (85-98); Nucleated Red Blood Cells % 0 %; Platelet Count 124 10^3/cmm (157-399); Red Blood Count 3.63 10^6/uL (3.85-5.65); White Blood Count 6.55 10^3/uL (3.29-11.43)
--- NOTE | 2024-11-13 23:11 | W.ED.NAVMDI ---
HPI - Nausea/Vomiting/Diarrhea General: Chief complaint: Nausea/Vomiting/Diarrhea Stated complaint: N/V Time Seen by Provider: 11/13/24 20:27 History of Present Illness: 69-year-old female with history of stage IV colon cancer, congestive heart failure, and diabetes was transported by EMS from [place] for acute onset of profuse vomiting accompanied by abdominal pain, nausea, and diarrhea. The patient states she ?never vomited so hard and so fast? before. EMS administered an intravenous antiemetic that eased her nausea. She also reports chronic bilateral foot tingling and marked debility, ambulating with a cane or walker. The patient notes a heavy flea infestation limited to her feet and admits to not bathing for six months. She denies recent medical care and indicates her daughter is arranging nursing-home placement. No additional review of systems obtained. Related Data Home Medications ?Medication ?Instructions ?Recorded ?Confirmed fluticasone propionate 50 1 spray intranasal DAILY 01/27/20 07/06/23 mcg/actuation nasal spray,suspension (Allergy Relief (fluticasone)) insulin degludec 100 unit/mL (3 50 unit SUBCUT DAILY 01/27/20 07/06/23 mL) subcutaneous pen (Tresiba FlexTouch U-100 insulin) calcium 600 mg (as 2 cap PO DAILY 10/26/20 07/06/23 carbonate)-vitamin D3 12.5 mcg (500 unit) capsule (Calcium with Vit D3) bumetanide 1 mg tablet 1 mg PO DAILY 11/23/20 07/06/23 omeprazole 40 mg capsule,delayed 40 mg PO DAILY 12/04/20 07/06/23 release gabapentin 300 mg capsule 300 mg PO TID 07/08/22 07/06/23 Vitamin B-12 PO 01/09/23 07/06/23 apixaban 5 mg tablet (Eliquis) 5 mg PO BID 07/06/23 07/06/23 baclofen 20 mg tablet 20 mg PO DAILY PRN 07/06/23 07/06/23 losartan 25 mg tablet 25 mg PO DAILY 07/06/23 07/06/23 metoprolol succinate 50 mg 100 mg PO BID 07/06/23 07/06/23 tablet,extended release 24 hr semaglutide 0.25 mg or 0.5 mg (2 1 mg SUBCUT Q7D 07/06/23 07/06/23 mg/1.5 mL) subcutaneous pen injector (Ozempic) Previous Rx's ?Medication ?Instructions ?Recorded guaifenesin 600 mg tablet, 600 mg PO Q12H PRN congestion #60 01/21/21 extended release 12 hr (Mucinex) tabs Diabetic shoes and 3 pairs of #1 ea 06/08/22 inserts nitroglycerin 0.4 mg sublingual 0.4 mg sublingual Q5M PRN Chest 07/08/22 tablet (Nitrostat) Pain #30 tabs albuterol sulfate 90 mcg/actuation 2 puff inhalation Q6H PRN 01/05/23 aerosol inhaler shortness of breath or wheezing #8.5 grams ipratropium 0.5 mg-albuterol 3 mg 3 ml inhalation Q4H PRN wheezing 01/09/23 (2.5 mg base)/3 mL nebulization #90 mL soln aspirin 81 mg tablet,delayed 81 mg PO DAILY #90 tabs 07/06/23 release isosorbide mononitrate 30 mg 30 mg PO DAILY #90 tabs 07/25/23 tablet,extended release 24 hr budesonide 160 mcg-glycopyr 9 2 inh inhalation BID #10.7 grams 10/11/23 mcg-formot 4.8 mcg/actuation HFA inhaler (Breztri Aerosphere) lisinopril 20 mg tablet See Rx Instructions .Route 06/13/24 .COMPLEX #90 tabs atorvastatin 40 mg tablet 40 mg PO DAILY #90 tabs 10/17/24 ondansetron 4 mg disintegrating 4 mg PO Q8H PRN nausea and 11/13/24 tablet vomiting 5 days #30 tabs Allergies Allergy/AdvReac Type Severity Reaction Status Date / Time doxycycline Allergy Severe ADR-Gastrointestinal Verified 07/06/23 11:37 Upset naproxen (From Aleve) Allergy Unknown Unknown Verified 07/06/23 11:37 Penicillins Allergy Unknown Unknown Verified 07/06/23 11:37 Sulfa (Sulfonamide Allergy Unknown Unknown Verified 07/06/23 11:37 Antibiotics) [facility] ED PFSH: Medical History (Updated 11/13/24 @ 23:08 by Joe Ventura MD) Chronic obstructive pulmonary disease Abdominal aortic aneurysm (AAA) Ischemic cardiomyopathy Hyperlipidemia HTN (hypertension) CAD (coronary artery disease) Family History Father Diabetes Myocardial infarction Grandmother Diabetes Other CAD (coronary artery disease) Cancer Hypertension Social History Smoking and tobacco/nicotine status: current some day tobacco/nicotine user Quit status (tobacco/nicotine): has quit using Year quit tobacco: May 2021 Alcohol intake: never Substance/Drug Use: never Lives independently: Yes Housing: Manufactured/Mobile home Marital status: / Number of children: 3 Pets and animals: Yes Pets & animals: cat(s) and dog(s) Physical Exam Const: COMMON NORMALS: no acute distress, patient oriented x3 and alert HENMT: COMMON NORMALS: normocephalic and atraumatic HEAD & SCALP: normocephalic and atraumatic Eye: COMMON NORMALS: Equal, round and reactive pupils present, EOMs intact bilaterally and no scleral icterus PUPIL: Yes Equal, round and reactive pupils present Resp: COMMON NORMALS: normal respiratory effort and No retractions Cardio: COMMON NORMALS: regular rate, regular rhythm and No murmurs present (Cardio) RATE: regular rate RHYTHM: regular rhythm GI: COMMON NORMALS: Normal to inspection, nondistended, normoactive bowel sounds present, Soft to palpation and non-tender PALPATION: Yes Soft to palpation Neuro: COMMON NORMALS: patient oriented x3 SENSORIUM/ORIENTATION: Yes alert Skin: NARRATIVE SKIN EXAM: Dry, dirty skin especially of the feet and ankles. No lesions or ulcers or rash. Innumerable fleas noted on the lower extremities. Course Vital Signs: Vital signs: Vital Signs Temperature 97.5 F L 11/13/24 20:25 Pulse Rate 92 11/13/24 22:00 Respiratory Rate 16 11/13/24 20:25 Blood Pressure 186/124 11/13/24 22:00 Pulse Oximetry 91 11/13/24 22:00 Oxygen Delivery Me thod Room Air 11/13/24 22:00 MDM - Nausea/Vomiting/Diarrhea Medical Decision Making In summary, patient is a 69-year-old female from home via ambulance seen for nausea and vomiting. After receiving Zofran she now feels much better. Abdomen is soft and nonperitoneal. Labs are unremarkable. I suspect likely viral etiology to her symptoms. Additionally, she has fleas on her feet and legs. I do not suspect any other emergent process warranting further workup or imaging. She will be discharged back home in stable condition with a prescription for Zofran for any ongoing nausea or vomiting. Lab Data 11/13/24 21:24 11/13/24 21:24 Laboratory Results WBC 6.55 10^3/uL (3.29-11.43) 11/13/24 21: RBC 3.63 10^6/uL (3.85-5.65) L 11/13/24 21:24 Hgb 14.50 g/dL (11.27-16.99) 11/13/24 21: Hct 41.7 % (36-47) 11/13/24 21: MCV 114.9 fl (85-98) H 11/13/24 21:24 MCH 39.9 pg (27-33) H 11/13/24 21: MCHC 34.8 g/dL (30-55) 11/13/24 21: RDW 18.5 % (12.1-15.1) H 11/13/24 21: Plt Count 124 10^3/cmm (157-399) L 11/13/24 21: MPV 9.9 fL (7.4-10.4) 11/13/24 21: Neut % (Auto) 52.4 % 11/13/24 21: Lymph % (Auto) 33.7 % 11/13/24: [place] % (Auto) 11.1 % 11/13/24: Eos % (Auto) 1.5 % 11/13/24 21:24 Baso % (Auto) 0.8 % 11/13/24: Neut # (Auto) 3.43 10^3/uL (1.8-7.7) 11/13/24: Lymph # (Auto) 2.2 10^3/uL (0.8-4.8) 11/13/24 21: [place] # (Auto) 0.7 10^3/uL (0.2-0.9) 11/13/24 21: Eos # (Auto) 0.1 10^3/uL (0.0-0.8) 11/13/24 21:24 Baso # (Auto) 0.1 10^3/uL (0.0-0.1) 11/13/24 21:24 Nucleated RBC % (auto) 0 % 11/13/24 21:24 Nucleated RBCs # 0.0 /100WBC 11/13/24 21:24 Sodium 141 mmol/L (136-145) 11/13/24 21:24 Potassium 3.0 mmol/L (3.5-5.1) L 11/13/24 21:24 Chloride 99 mmol/L (98-107) 11/13/24 21:24 Carbon Dioxide 30 mmol/L (22-29) H 11/13/24 21:24 Anion Gap 15.0 (5-19) 11/13/24 21:24 BUN 8 mg/dL (8-23) 11/13/24 21:24 Creatinine 0.6 mg/dL (0.5-0.9) 11/13/24 21:24 GFR Calculation 99.1 mL/min (90-130) 11/13/24 21:24 Glucose 131 mg/dL (65-115) H 11/13/24 21:24 Calculated Osmolality 292 mOsm/kg (285-295) 11/13/24 21:24 Calcium 7.9 mg/dL (8.5-10.5) L 11/13/24 21:24 Total Bilirubin 1.8 mg/dL (0.15-1.2) H 11/13/24 21:24 AST 40 U/L (0-32) H 11/13/24 21:24 ALT 23 U/L (0-33) 11/13/24 21:24 Alkaline Phosphatase 179 U/L (35-105) H 11/13/24 21:24 Total Protein 7.4 g/dL (6.6-8.7) 11/13/24 21:24 Albumin 3.2 g/dL (3.5-5.2) L 11/13/24 21:24 Globulin 4.2 g/dL (1.3-4.6) 11/13/24 21:24 Lipase 18 U/L (13-60) 11/13/24 21:24 No radiology studies performed this visit Discharge Plan Discharge Patient Disposition: Home Clinical Impression: Nausea and vomiting Condition: Stable Prescriptions: New ondansetron 4 mg tablet,disintegrating 4 mg PO Q8H PRN (Reason: nausea and vomiting) 5 Days Qty: 30 0RF No Action calcium carbonate-vitamin D3 [Calcium 600 with Vitamin D3] 600 mg(1,500mg) -500 unit capsule 2 cap PO DAILY bumetanide 1 mg tablet 1 mg PO DAILY fluticasone propionate [Allergy Relief (fluticasone)] 50 mcg/actuation spray,suspension 1 spray INTRANASAL DAILY Rx Instructions: administer into each nostril Tresiba FlexTouch U-100 100 unit/mL (3 mL) insulin pen 50 unit SUBCUT DAILY Ozempic 0.25 mg or 0.5 mg(2 mg/1.5 mL) pen injector 1 mg SUBCUT Q7D Rx Instructions: On Monday guaifenesin [Mucinex] 600 mg tablet extended release 12hr 600 mg PO Q12H PRN (Reason: congestion) Qty: 60 3RF gabapentin 300 mg capsule 300 mg PO TID nitroglycerin [Nitrostat] 0.4 mg tablet, sublingual 0.4 mg SUBLINGUAL Q5M PRN (Reason: Chest Pain) Qty: 30 1RF Rx Instructions: do not exceed 3 doses per episode (DME) Diabetic shoes and 3 pairs of inserts See Rx Instructions .Route .MEDSUPPLY Qty: 1 0RF Rx Instructions: As directed HOME Vitamin B-12 PO baclofen 20 mg tablet 20 mg PO DAILY PRN losartan 25 mg tablet 25 mg PO DAILY Eliquis 5 mg tablet 5 mg PO BID aspirin 81 mg tablet,delayed release (DR/EC) 81 mg PO DAILY Qty: 90 3RF metoprolol succinate 50 mg tablet extended release 24 hr 100 mg PO BID albuterol sulfate 90 mcg/actuation HFA aerosol inhaler 2 puff inhalation Q6H PRN (Reason: shortness of breath or wheezing) Qty: 8.5 4RF ipratropium-albuterol 0.5 mg-3 mg(2.5 mg base)/3 mL solution for nebulization 3 ml inhalation Q4H PRN (Reason: wheezing) Qty: 90 3RF isosorbide mononitrate 30 mg tablet extended release 24 hr 30 mg PO DAILY Qty: 90 3RF Breztri Aerosphere 160-9-4.8 mcg/actuation HFA aerosol inhaler 2 inh inhalation BID Qty: 10.7 3RF lisinopril 20 mg tablet See Rx Instructions .ROUTE .COMPLEX Qty: 90 3RF Dose Instruction: TAKE ONE TABLET BY MOUTH DAILY. Rx Instructions: TAKE ONE TABLET BY MOUTH DAILY. atorvastatin 40 mg tablet 40 mg PO DAILY Qty: 90 0RF Rx Instructions: PATIENT MUST MAKE APPOINTMENT AND BE SEEN FOR FURTHER REFILLS omeprazole 40 mg Capsule,Delayed Release(Dr/Ec) 40 mg PO DAILY Discharge Orders: Discharge ED (Routine); Ordered 11/13/24 Ordered By: Joe Ventura Referrals: Amie Emery MD [Primary Care Provider, Internal Medicine] Discharge Diet: Advance as tolerated Discharge Activity: Increase activity as tolerated Patient Instructions: Acute Nausea and Vomiting (ED), Patient Portal & Chadd Instructions Activity Restrictions/Additional Instructions: Your blood tests are reassuring and you are able to eat and drink after having Zofran. Many people right now are having a tummy bug which usually last for a day or 2. You are likely suffering the same. Your exam is reassuring and you do not require further imaging or surgery. It is safe to follow-up with your primary care doctor as you normally would. Print Language: Libyan Coding Level of Care Code ED Business Developer for Bianca Ellsworth
[2024-11-14 00:45] VITALS: BP 177/131; PULSE 100; O2SAT 93
== END 2024-11-14 00:05 | disposition home or self-care (01) ==
PROVIDERS: Emergency Provider Student in an Organized Health Care Education/Training Program; PCP Internal Medicine
DX: R11.2 Nausea with vomiting, unspecified (principal); J44.9 Chronic obstructive pulmonary disease, unspecified; E78.5 Hyperlipidemia, unspecified; I25.10 Atherosclerotic heart disease of native coronary artery without angina pectoris; I11.0 Hypertensive heart disease with heart failure; I50.9 Heart failure, unspecified; E11.9 Type 2 diabetes mellitus without complications; Z79.4 Long term (current) use of insulin; Z79.01 Long term (current) use of anticoagulants; Z79.899 Other long term (current) drug therapy; Z79.85 Long-term (current) use of injectable non-insulin antidiabetic drugs; Z88.0 Allergy status to penicillin; Z88.2 Allergy status to sulfonamides; Z88.8 Allergy status to other drugs, medicaments and biological substances; Z85.038 Personal history of other malignant neoplasm of large intestine
CPT/HCPCS: 36415; 80053; 83690; 85025; 99283

== ENCOUNTER 2025-04-10 23:40 | Emergency (ER) | payer MEDICARE, MEDICAID, SELFPAY ==
[2025-04-10 23:42] VITALS: BP 132/74; PULSE 76; RESP 18; TEMP 36.7; O2SAT 97; BMI 36.7
--- OUTSIDE RECORDS SUMMARY | 2025-04-10 23:49 | XMS_ITS | Encounter Summary ---
Author Organization [facility] Address [address] [place] [address] Care Team Providers Care Emergency Medical Technician/Driver Name Role Phone Amie Emery MD Primary Care Provider [phone]- [phone] Encounter Details Date Type Department Care Team (Late st Contact Info) Description 08/31/[address] 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
--- OUTSIDE RECORDS SUMMARY | 2025-04-10 23:49 | XMS_ITS | Encounter Summary ---
Author Organization [facility] Address [address] [place] [address] Care Team Providers Care Motion Picture Operator Name Role Phone Amie Emery MD Primary Care Provider [phone]- [phone] Encounter Details Date Type Department Care Team (Late st Contact Info) Description 06/04/2007 Outpatient Historical [facility] Endocrinology-[facility] [place] [address] [place] [address] Kristopher Armando MD NO ADDRESS ON FILE Social History Tobacco Use Types Packs/Day Years Used Date Smoking Tobacco: Never Assessed Comments Unknown Sex and Gender Information Value Date Recorded Sex Assigned at Not on file Legal Sex Female 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 T OFFICER AND FLIGHT INSTRUCTOR documented in this encounter Plan of Treatment Not on file documented as of this encounter Visit Diagnoses Not on filedocumented in this encounter Care Teams Motion Picture Operator Relationship Specialty Start Date End Date Amie Emery MD [address] [place] [address] PCP - General Internal Medicine 12/20/18 documented as of this encounter
--- OUTSIDE RECORDS SUMMARY | 2025-04-10 23:49 | XMS_ITS | Encounter Summary ---
Author Organization [facility] Address [address] [place] [address] Care Team Providers Care Vegetable Cook Name Role Phone Amie Emery MD Primary Care Provider [phone]- [phone] Encounter Details Date Type Department Care Team (Late st Contact Info) Description 10/01/2006 Outpatient Historical [facility] [address] [place] [address] Kristopher Armando MD NO ADDRESS ON FILE Social History Tobacco Use Types Packs/Day Years Used Date Smoking Tobacco: Never Assessed Comments Unknown Sex and Gender Information Value Date Recorded Sex Assigned at Not on file 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
--- OUTSIDE RECORDS SUMMARY | 2025-04-10 23:49 | XMS_ITS | Encounter Summary ---
Author Organization [facility] Address [address] [place] [address] Care Team Providers Care It Quality Assurance Analyst Name Role Phone Amie Emery MD Primary Care Provider [phone]- [phone] Encounter Details Date Type Department Care Team (Latest Contact Info) Description 12/01/2006 Outpatient Historical [facility] Endocrinology-[facility] [place] [address] [place] [address] Kristopher Armando MD NO ADDRESS ON FILE DM w/o Complication Type II (CMS/HCC) (Primary Dx) Social History Tobacco Use Types Packs/Day Years Used Date Smoking Tobacco: Never Assessed Comments Unknown Sex and Gender Information Value Date Recorded Sex Assigned at Not on file Legal Sex Female 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
--- OUTSIDE RECORDS SUMMARY | 2025-04-10 23:49 | XMS_ITS | Continuity of Care Document ---
Author Organization [facility], [facility] ([facility]) Address [address] [place] [address] Assessment No assessment recorded. Plan of Treatment Reminders Order Date Submit Date Provider Last Modified By Organization Details Last Modified Time Details Appointments None recorded. Lab None recorded. Referral None recorded. Procedures None recorded. Surgeries None recorded. Imaging None recorded. Medication Orders Basaglar KwikPen U-100 Insulin 100 unit/mL (3 mL) subcutaneou s [address] [facility] [address], [address], 5 12:31:48 Entresto 24 mg-26 mg tablet [address] [facility] [address], [address], 5 12:22:30 Patient TargetsNo targets recorded. Patient InstructionsNo instructions recorded. Reason for Referral None Reported. Problems Name Problem SNOMED Code Status Onset Date Resolution Date Notes Provider Name and Address Organization Details Recorded Time Chronic hypercapnic respiratory failure 849454955 [facility]24 [facility] Chronic obstructive pulmonary disease 12411406 Active 2024 [facility] 15:[facility]07 Paroxysmal atrial fibrillatio n 735265388 Active 2024 Ashleenidia man, [facility] 15:01:28 Type 2 diabetes mellitus 65039356 Active 2024 Ashlee man, [facility] 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 15:04:41 Essential hypertensio n 56468128 Active 2024 Ashlee man, [facility] 15:05:10 Recurrent major depression in full remission 74008296 Active 2024 Ashlee Negrete [facility] 15:05:26 Malignant neoplasm of sigmoid colon 035309044 Active 2024 Ashleenidia Negrete [facility], [facility] 5 15:05:39 Chronic diastolic heart failure 410340949 Active 2024 Ashleealia De La Cruze [facility], [facility] 15:05:59 Disorientat ed 39705093 Active 2024 Ashleealia De La Cruze [facility] 15:06:16 Diverticuli tis of intestine 334279386 Active 2024 Ashleealia De La Cruze [facility], [facility] 15:06:39 Noninfectio us gastroenter itis 14629558 Active 2024 Ashlee man, [facility] 15:07:32 Anemia 529773590 Active 2024 Ashlee Negrete [facility], [facility] 15:08:41 Atrial fibrillatio n 82268776 Active 2024 Ashlee man, [facility] 15:09:25 Obesity caused by energy imbalance 068121330 Active 2024 Ashlee Negrete magda, [facility] 15:09:40 Benign neoplasm of adrenal gland 68621844 Active 2024 Ashlee Penelope man, [facility] 15:09:57 Gastroesoph ageal reflux disease without esophagitis 042184424 Active 2024 Ashlee Negrete [facility], [facility] 15:10:30 Aneurysm of infrarenal abdominal aorta 570190913 Active 2024 Ashlee Negrete [facility], [facility] 15:10:41 Constipatio n 42746519 Active 2024 Ashlee Negrete [facility], [facility] 15:11:05 Iron deficiency anemia due to blood loss 241177804 Active 2024 Ashlee Negrete [facility], [facility] 15:11:19 Primary hyperparath yroidism 73422837 Active 2024 Ashlee Negrete [facility], [facility] 15:11:36 Hypomagnese teresa 750092797 Active 2024 Ashlee Negrete [facility], [facility] 15:12:05 Hypokalemia 59987890 Active 2024 Ashlee Negrete [facility], [facility] 15:12:21 Generalized anxiety disorder 69825409 Active 2024 Ashlee Negrete magda, [facility] 5 15:12:30 Bilateral senile combined form cataracts of eyes 2528832308345 08 Active 2024 Ashlee Negrete null, [facility] 5 15:12:42 Old myocardial infarction 2285709 Active 2024 Ashlee Negrete [facility], [facility] 5 15:12:52 Embolism from thrombosis of vein of lower extremity 278804512 Active 2024 Ashlee Negrete magda, [facility] 15:13:08 Senile asthenia 49292787 Active [address], [address], [facility] 17:29:01 Mixed hyperlipide teresa 046185614 Active [address], [address], [facility] 17:30:00 Abdominal aortic aneurysm without rupture 56821013 Active 2024 Wilian Mcgowan [address], [address], [facility] 17:32:12 Moderate recurrent major depression 67324848 Active 2024 Wilian Mcgowan [address], [address], [facility] 17:32:17 Morbid obesity 037303771 Active 2024 Wilian Mcgowan, DO [address] [place] [address], [address] , [facility] 5 17:32:19 Metastatic malignant neoplasm to liver 67021348 Active 2024 Ruy man [facility] 5 14:45:02 Paralytic syndrome on one side of the body 463384915 Active 2024 Ruy man [facility] 14:46:29 Problem Notes None recorded. Medical Equipment None Reported. Allergies Allergen ID Allergen Name Allergen Category Reaction Reaction Severity Criticality Documentation Date Start Date Code Code System Note Provider Name and Address Organization Details Recorded Time 06265 cyclizine medicatio n Not available Not available Not available 11/22/2024 2977 RxNorm Ashlee Negrete [facility] 11:49:09 05315 doxycycli ne Not available Not available Not available Not available 11/22/2024 3640 RxNorm Ashlee Neg[facility]te [facility] 11:49:17 47782 erythromy brittany medicatio n Not available Not available Not available 11/22/2024 4053 RxNorm Ashlee Negrete [facility] 11:49:25 61344 naproxen medicatio n Not available Not available Not available 11/22/2024 7258 RxNorm Ashlee Negrete [facility] 11:49:32 47471 Product containin g penicilli n (product) medicatio n Not available Not available Not available 11/22/2024 78389 8001 SNOMED Ashlee Negrete [facility] 11:49:41 45391 Substance with sulfonami de structure and antibacte rial mechanism of action (substanc e) medicatio n Not available Not available Not available 11/22/2024 87620 8003 SNOMED Ashlee Negrete magda [facility], [place] 11:49:48 20346 cultivate d mushroom extract food,medi cation Not available Not available Not available 11/22/2024 63383 17 RxNorm Ashlee Negrete magda [facility], [place] 11:49:58 Medications Name Sig Start Date Stop Date Status Note LastModified by Organization Details LastModified Time Singulair 10 mg tablet Take 1 tablet every day by oral route. active Not Available Not Available No t Available furosemide 40 mg tablet TAKE ONE TABLET BY MOUTH TWICE DAILY, SEVEN hours APART. active Not Available Not Available No t Available atorvastati n 40 mg tablet TAKE ONE TABLET BY MOUTH DAILY. Patient must make appointme nt AND be seen FOR further refills. active Not Available Not Available No t Available clindamycin HCl 300 mg capsule TAKE ONE CAPSULE BY MOUTH THREE TIMES DAILY FOR SEVEN DAYS 11/21 completed Not Available Not Available Not Available albuterol sulfate 2.5 mg/3 mL (0.083 %) solution for nebulizatio n Inhale 3 mL every 4 hours by nebulizat ion route as needed. active Not Available Not Available No t Available cetirizine 10 mg tablet Take 1 tablet every day by oral route. active Not Available Not Available No t Available azithromyci n 250 mg tablet TAKE 2 TABLETS BY MOUTH ON DAY 1, THEN TAKE 1 TABLET DAILY ON DAYS 2-5 11/10 completed Not Available Not Available Not Available metoprolol succinate ER 50 mg tablet,exte nded release 24 hr TAKE ONE TABLET BY MOUTH TWICE DAILY active Not Available Not Available No t Available hydrocodone 5 mg-acetamin ophen 325 mg tablet GIVE ONE TABLET BY MOUTH EVERY SIX HOURS NEEDED FOR PAIN MODERATE MAX 4TABS/DAY 2024 active Not Available Not Available Not Avai lable fluconazole 200 mg tablet TAKE TWO TABLETS BY MOUTH DAILY FOR SEVEN DAYS. 12/20 completed Not Available Not Available Not Available lisinopril 20 mg tablet TAKE ONE TABLET BY MOUTH DAILY. active Not Available Not Available No t Available ondansetron HCl 4 mg tablet TAKE ONE TABLET BY MOUTH EVERY SIX hours NEEDED FOR nausea/em esis. active Not Available Not Available No t Available isosorbide mononitrate ER 30 mg tablet,exte nded release 24 hr TAKE ONE TABLET BY MOUTH DAILY. active Not Available Not Available No t Available Ferrex 150 mg iron capsule TAKE ONE CAPSULE BY MOUTH DAILY. active Not Available Not Available No t Available diphenoxyla te-atropine 2.5 mg-0.025 mg tablet TAKE ONE TABLET BY MOUTH FOUR TIMES DAILY NEEDED FOR Diarrhea/ Loose stools. active Not Available Not Available No t Available metronidazo le 500 mg tablet ON THE DAY BEFORE your surgery please take ONE tablet BY MOUTH AT 1 pm, 2 pm AND 10 pm 11/10 completed Not Available Not Available Not Available prochlorper azine maleate 10 mg tablet TAKE ONE TABLET BY MOUTH EVERY SIX hours NEEDED FOR nausea/em esis. active Not Available Not Available No t Available capecitabin e 500 mg tablet [id number] mg by mouth two times a day 14 days on and 7days off for cancer until 5 23:59 [id number] g twice daily X 14 days, then off for 7 days ineach 21 day chemo cycle active Not Available Not Available No t Available omeprazole 40 mg capsule,del ayed release Take 1 capsule every day by oral route. active Not Available Not Available No t Available tramadol 50 mg tablet Take 1 tablet(s) 3 times a day by oral route as needed. 2024 active Not Available Not Available Not Avai labdaphne triamcinolo ne acetonide 0.1 % topical cream Apply topically TO THE affected area(s) TWICE DAILY. active Not Available Not Available No t Available potassium chloride ER 20 mEq tablet,exte nded release(par t/cryst) TAKE ONE TABLET BY MOUTH DAILY. active Not Available Not Available No t Available baclofen 10 mg tablet TAKE ONE TABLET BY MOUTH THREE TIMES DAILY NEEDED FOR pain. active Not Available Not Available No t Available benzonatate 100 mg capsule Take 1 capsule every 8 hours by oral route as needed. active Not Available Not Available No t Available cephalexin 500 mg capsule TAKE ONE CAPSULE BY MOUTH TWICE DAILY FOR SEVEN DAYS. 11/10 completed Not Available Not Available Not Available losartan 25 mg tablet take 1 tablet by mouth once daily 11/24 completed Not Available Not Available Not Available gabapentin 300 mg capsule TAKE ONE CAPSULE BY MOUTH THREE TIMES DAILY. active Not Available Not Available No t Available Proventil HFA 90 mcg/actuati on aerosol inhaler Inhale 2 puffs every 6 hours by inhalatio n route as needed. active Not Available Not Available No t Available ergocalcife rol (vitamin D2) 1,250 mcg (50,000 unit) capsule TAKE 1 CAPSULE BY MOUTH ONCE A WEEK active Not Available Not Available No t Available levofloxaci n 500 mg tablet TAKE ONE TABLET BY MOUTH DAILY FOR SEVEN DAYS. 11/10 completed Not Available Not Available Not Available neomycin 500 mg tablet ON THE DAY BEFORE surgery, please take TWO tablets BY MOUTH AT 1 pm, 2 pm, AND 10 pm 11/10 completed Not Available Not Available Not Available ondansetron 4 mg disintegrat ing tablet TAKE ONE TABLET BY MOUTH EVERY SIX HOURS NEEDED FOR NAUSEA/EM ESIS. DISSOLVE TABLET ON TOP OF TONGUE, THEN SWALLOW WITH SALIVA active Not Available Not Available No t Available losartan 100 mg tablet take 1 tablet by mouth once daily 11/21 completed Not Available Not Available Not Available sertraline 50 mg tablet take 1 tablet by mouth once daily active Not Available Not Available No t Available Dulcolax (bisacodyl) 5 mg tablet,claudine yed release Take 1 tablet every 12 hours by oral route as needed. active Not Available Not Available No t Available fentanyl 12 mcg/hr transdermal patch Apply ONE PATCH TO SKIN directed EVERY third DAY. Max daily AMOUNT ONE PATCH. 11/21 completed Not Available Not Available Not Available peg 3350-electr olytes 236 gram-22.74 gram-6.74 gram-5.86 gram solution Mix according TO instructi ons, THEN drink one half of contents THE evening prior TO procedure , THEN drink THE remaining half THE morning of THE procedure . Must be completed TWO hours prior TO procedure . 11/21 completed Not Available Not Available Not Available Humalog KwikPen (U-100) Insulin 100 unit/mL subcutaneou s Inject as perslidin g scale: if 150 - 200 = 3; 201 - 250 = 5; 251 - 300= 7; 301 - 350 = 9; 351 - 450 = 11 If less than 70 andsympto matic call provider. If greater than 450 callprovi yvette, subcutane ously before meals and at hs 01/17 completed Not Available Not Available Not Available sodium,pota ssium,mag sulfates 17.5 gram-3.13 gram-1.6 gram oral soln FOLLOWING instructi ons from clinic. active Not Available Not Available No t Available Eliquis 5 mg tablet TAKE ONE TABLET BY MOUTH TWICE DAILY active Not Available Not Available No t Available Entresto 24 mg-26 mg tablet Take 1 tablet twice a day by oral route, for CHF. 2024 active Not Available Not Available Not Avai lable Basaglar KwikPen U-100 Insulin 100 unit/mL (3 mL) subcutaneou s Inject 26 units every day by subcutane ous route at bedtime, for DM. 2024 active Not Available Not Available Not Avai lable Breztri Aerosphere 160 mcg-9mcg-4. 8mcg/actuat ion HFA aerosol inhaler Inhale 2 puffs twice a day by inhalatio n route. active Not Available Not Available No t Available Ozempic 1 mg/dose (4 mg/3 mL) subcutaneou s pen injector Inject ONE MG UNDER THE SKIN EVERY SEVEN DAYS 11/21 completed Not Available Not Available Not Available Vitals Date Recorded Body height Body mass index (BMI) Body weight Oxygen saturation Heart rate Respiratory rate Body temperature Systolic And Diastolic Provider Name and Address Organization Details Last Updated DateTime 5 147.32 cm 36.8 kg/m2 65671.2 6 g 94 % 72 /min 20 /min 97.5 [degF] 110/68 mm[Hg] Ashlee Negrete [facility], [facility] 5 09:00:46 Social History None recorded. Functional Status None recorded. Mental Status None recorded. Family History Nothing Reported. Medical History No medical history recorded. Gynecological HistoryNo gynecological history recorded. Obstetrics History GPAL:G 0 P 0 0 0 0 Immunizations Vaccine Type Date Status Note Provider Nam e and Address Organization Details Recorded Time Influenza, split virus, quadrivalent, PF 02/28/2022 completed Not Available [facility] 5 11:14:10 Influenza, split virus, quadrivalent, PF 02/07/2023 completed Not Available [facility] 11:14:10 Influenza, split virus, trivalent, PF 02/01/2024 completed Not Available [facility] 2024 11:14:10 Past Encounters Encounter ID Performer Location Encounter Start Date Encounter Closed Date Diagnosis/Indication Diagnosis SNOMED-CT Code Diagnosis ICD10 Code Diagnosis IMO Codes Diagnosis Note [id number] Wilian DO Juan M [facility] ([facility]) [address] [place] [address] 12/20/2024 08:23:11 12/23/2024 15:30:29 Chronic obstructive pulmonary disease 92297507 J44.9 612099630 Continues inhalers, Breztri. Generalize d anxiety disorder 34924048 F41.1 21943 Continue Sertraline . Type 2 mina betes mellitus 92166321 E11.59 E11.69 84772617 A1c 6.2 on 11/18/24, continue SS Humalog, continue monitoring glucose, consider switching to long acting insulin at next visit. Malignant neoplasm of sigmoid colon 745222899 C18.7 02477 11/22/24: Following with Oncology, on oral Chemo. Atrial fibrillation 4943 6004 I48.91 64651715 Continue Eliquis. Senile asthenia 65631225 R54 R26.2 Z74.1 R53.83 4709551 Paroxysmal atrial fibrillation 213625261 I48.0 91034 Continue Eliquis. Chronic di astolic heart failure 785601631 I50.32 8587400 stable. continue f/u with cardiology . will monitor weight, swelling. Essential hypertension 66432090 I10 274965 stable. continue lisinopril , metoprolol Mixed hyperlipidemia 267 009794 E78.2 75479 Stable. Will repeat labs q 12 mts. Continue Atorvastat in. Counseled on diet and exericse. Anemia 694396867 D64.9 13023733 repeat labs. Morbid obesity 965641689 E66.01 04094 with active colon cancer. weight loss expected. Moderate r ecurrent major depression 86341521 F33.1 84432 stable. continue sertraline . Abdominal aortic aneurysm without rupture 33591405 I71.40 3144430476 continue care with cardiology Skin ulcer 67047712 L98. 990 0189384 12/20/24: continue dressing changes and reposition 3 times a shift. pt to get up and ambulate TID [id number] Wilian Mcgowan DO [facility] ([facility]) [address] [place] [address] 01/17/2025 08:17:27 2025 15:51:19 Chronic diastolic heart failure 162558972 I50.32 [id number] 01/17/25: Start Entresto 24/26mg BID, having weight gain. Continue Furosemide . Type 2 mina betes mellitus 78156233 E11.59 E11.69 61065940 01/17/25: A1c 6.2 on 11/18/24, Reviewed short acting usage, stop Humalog, start Basaglar 15u at hs. F/u 2 weeks, consider decreasing frequency of accuchecks . Health Concerns Section Related Observation LastModified by Organization Detai ls LastModified Time None Recorded Concern Status LastModified by Organization Details LastModified Time None Recorded Payers Encounter Date Sequence Insurance Name Policy Number Policy Blair Covered Member ID Blair Member ID Guarantor Name 01/17/2025 1 [employer] (MEDICARE REPLACEMENT/ ADVANTAGE - PPO) Jessa Escalera [id number] Jessa Escalera 01/17/2025 2 [place] Jessa Escalera [id number] Jessa Escalera Notes Date Note Type Note Provider Name and Address Organization Details Recorded Time 01/17/2025 text/html ROS as noted in the HPI We are evaluating pt in [place] today to f/u on fluid and weight. Plan at last visit:Type 2 diabetes mellitus with other specified complication, without long-term current use of llwmsedX7n 6.2 on 11/18/24, continue SS Humalog, continue monitoring glucose, consider switching to long acting insulin at next visit. = Continues Lasix 40mg BID.Weight increasing with DCHF. Continues Humalog, averaging 3u at breakfast, 7u at lunch, 5u at dinner, 6u at hs. Wilian Mcgowan DO [address] [place] [address], [address], [facility] [place] 01/17/2025 12:32:31 OBGyn Episode No OBEpisode recorded.
--- OUTSIDE RECORDS SUMMARY | 2025-04-10 23:49 | XMS_ITS | Encounter Summary ---
Author Organization [facility] Address [address] [place] [address] Care Team Providers Care Plate Finisher Name Role Phone Amie Emery MD Primary Care Provider [phone]- [phone] Encounter Details Date Type Department Care Team (Latest Contact Info) Description 10/04/[address] 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
--- OUTSIDE RECORDS SUMMARY | 2025-04-10 23:49 | XMS_ITS | Encounter Summary ---
Author Organization [facility] Address [address] [place] [address] Care Team Providers Care Numerical Control Machine Machinist Name Role Phone Amie Emery MD Primary Care Provider +1- [phone] Encounter Details Date Type Department Care Team (Latest Contact Info) Description 10/04/2006 Outpatient Historical [facility]- [place] [address] [facility] [address] [place] [address] Selvin Olivares MD [address] [place] [id number] Traumatic Subdural Hem (CMS/HCC) (Primary Dx); Unspecified Fall Social History Tobacco Use Types Packs/Day Years Used Date Smoking Tobacco: Never Assessed Comments Unknown Sex and Gender Information Value Date Recorded Sex Assigned at Not on file 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
--- OUTSIDE RECORDS SUMMARY | 2025-04-10 23:49 | XMS_ITS | Encounter Summary ---
Author Organization [facility] Address [address] [place] [address] Care Team Providers Care Stacker Name Role Phone Amie Emery MD Primary Care Provider +1- [phone] Encounter Details Date Type Department Care Team (Latest Contact Info) Description 10/06/2006 Outpatient Historical [facility] Ear[facility] Nose and Th[facility] [place] 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
--- OUTSIDE RECORDS SUMMARY | 2025-04-10 23:49 | XMS_ITS | Encounter Summary ---
Author Organization [facility] Address [address] [place] [address] Care Team Providers Care Correctional Guard Name Role Phone Amie Emery MD Primary Care Provider +1- [phone] Encounter Details Date Type Department Care Team (Late st Contact Info) Description 10/01/2006 Emergency [facility] Emergency Department [address] 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
--- OUTSIDE RECORDS SUMMARY | 2025-04-10 23:49 | XMS_ITS | Data Portability ---
[facility] Organization [facility] Address [address] [place] [address] Assessment No assessment recorded. Plan of Treatment Reminders Order Date Submit Date Provider Last Modified By Organization Details Last Modified Time Details Appointments None recorded. Lab None recorded. Referral None recorded. Procedures None recorded. Surgeries None recorded. Imaging None recorded. Medication Orders Basaglar KwikPen U-100 Insulin 100 unit/mL (3 mL) subcutaneou s 2024 025 [email or web address] 47 [facility] [address], [address], 5 15:38:08 Basaglar KwikPen U-100 Insulin 100 unit/mL (3 mL) subcutaneou s 2024 025 [email or web address] 47 [facility] [address], [address], 5 09:43:38 Basaglar KwikPen U-100 Insulin 100 unit/mL (3 mL) subcutaneou s 2024 025 [email or web address] 47 [facility] [address], [address], 5 12:31:48 Entresto 24 mg-26 mg tablet 2024 025 [email or web address] 47 [facility] [address], [address], 12:22:30 Patient TargetsNo targets recorded. Patient InstructionsNo instructions recorded. Reason for Referral None Reported. Problems Name Problem SNOMED Code Status Onset Date Resolution Date Notes Provider Name and Address Organization Details Recorded Time Chronic hypercapnic respiratory failure 887242462 Active [address] [facility] 15:00:50 Chronic obstructive pulmonary disease 08879550 Active [address] [facility] 15:01:07 Paroxysmal atrial fibrillatio n 181265157 Active [address] [facility] 15:01:28 Type 2 diabetes mellitus 27030901 Active [address] [facility] 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 5 15:04:41 Essential hypertensio n 20748494 Active 2024 Ashlee Negrete [facility] 5 15:05:10 Recurrent major depression in full remission 69238849 Active [address] [facility] 5 15:05:26 Malignant neoplasm of sigmoid colon 263873694 Active 2024 Ashlee Negrete [facility] 15:05:39 Chronic diastolic heart failure 157741372 Active 2024 Ashlee Negrete [facility] 5 15:05:59 Disorientat ed 82675135 Active 2024 Ashlee man, [facility] 15:06:16 Diverticuli tis of intestine 618886378 Active 2024 Ashlee man, [facility] 15:06:39 Noninfectio us gastroenter itis 35039066 Active 2024 Ashlee De La Cruze magda, [facility] 15:07:32 Anemia 155108297 Active 2024 Ashele Penelope man, [facility] 15:08:41 Atrial fibrillatio n 10332157 Active 2024 Ashleenidia De La Cruze [facility] 15:09:25 Obesity caused by energy imbalance 298744939 Active 2024 Ashlee man, [facility] 15:09:40 Benign neoplasm of adrenal gland 22099760 Active 2024 Ashlee Negrete [facility] 15:09:57 Gastroesoph ageal reflux disease without esophagitis 944095864 Active 2024 Ashlee De La Cruze magda, [facility] 15:10:30 Aneurysm of infrarenal abdominal aorta 187238273 Active 2024 Ashlee Negrete null, [facility] 15:10:41 Constipatio n 52894933 Active 2024 Ashleealia Negrete null, [facility] 15:11:05 Iron deficiency anemia due to blood loss 271109100 Active 2024 Ashlee Negrete null, [facility] 15:11:19 Primary hyperparath yroidism 76373596 Active 2024 Ashlee Negrete null, [facility] 15:11:36 Hypomagnese [facility] 161233271 Active 2024 Ashlee De La Cruze null, [facility] 15:12:05 Hypokalemia 39587014 Active 2024 Ashlee Negrete null, [facility] 15:12:21 Generalized anxiety disorder 65186444 Active 2024 Ashlee De La Cruze [facility], [facility] 15:12:30 Bilateral senile combined form cataracts of eyes 6281531958902 08 Active 2024 Ashlee Negrete [facility], [facility] 5 15:12:42 Old myocardial infarction 3085984 Active 2024 Ashlee De La Cruze [facility], [facility] 15:12:52 Embolism from thrombosis of vein of lower extremity 721074568 Active 2024 Ashlee Negrete [facility], [facility] 15:13:08 Senile asthenia 37341371 Active [address], [address], [facility] 17:29:01 Mixed hyperlipide teresa 369128496 Active [address], [address], [facility] 17:30:00 Abdominal aortic aneurysm without rupture 50978058 Active 2024 Wilian Mcgowan [address], [address], [facility] 17:32:12 Moderate recurrent major depression 06323442 Active 2024 Wilian Mcgowan [place] [address], [facility] 17:32:17 Morbid obesity 284885874 Active 2024 Wilian Mcgowan [address], [address], [facility] 17:32:19 Metastatic malignant neoplasm to liver 13803575 Active [address] [facility] 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 14:46:29 Problem Notes None recorded. Medical Equipment None Reported. Allergies Allergen ID Allergen Name Allergen Category Reaction Reaction Severity Criticality Documentation Date Start Date Code Code System Note Provider Name and Address Organization Details Recorded Time 05629 cyclizine medicatio n Not available Not available Not available 11/22/[address] [facility] 11:49:09 49515 doxycycli ne Not available Not available Not available Not available 11/22/[address] [facility] 11:49:17 40628 erythromy brittany medicatio n Not available Not available Not available 11/22/2024 4053 RxNorm Ashlee Negrete [facility] 11:49:25 02405 naproxen medicatio n Not available Not available Not available 11/22/2024 7258 RxNorm Ashlee Negrete [facility] 11:49:32 44743 Product containin g penicilli n (product) medicatio n Not available Not available Not available 11/22/2024 68070 8001 SNOMED Ashlee Negrete [facility] 11:49:41 64877 Substance with sulfonami de structure and antibacte rial mechanism of action (substanc e) medicatio n Not available Not available Not available 11/22/2024 92418 8003 SNOMED Ashleenidia Negrete [facility] 11:49:48 63435 cultivate d mushroom extract food,medi cation Not available Not available Not available 11/22/2024 77630 17 RxNorm Ashlee Negrete [facility] 11:49:58 Medications Name Sig Start Date Stop [...] t Available capecitabin e 500 mg tablet [id number] mg by mouth two times a day 14 days on and 7days off for cancer until 5 23:59 [id number] g twice daily X 14 days, then [...] active Not Available Not Available Not Avai yevgeniy triamcinolo ne acetonide 0.1 % topical cream [...] active Not Available Not Available Not Avai yevgeniy Kimaglkathleen KwikPen U-100 Insulin 100 unit/mL (3 mL) subcutaneou s Inject 26 units every day by subcutane ous route at bedtime, for DM. 2024 active Not Available Not Available Not Avai yevgeniy Breztri Aerosphere 160 mcg-9mcg-4. 8mcg/actuat ion HFA [...] Updated DateTime 5 147.32 cm 36.8 kg/m2 60345.2 6 g 94 % 72 /min 20 /min 97.5 [degF] 110/68 mm[Hg] [facility] 5 09:00:46 Date Recorded Body height Body mass index (BMI) Body weight Oxygen saturation Heart rate Respiratory rate Body temperature Systolic And Diastolic Provider Name and Address Organization Details Last Updated DateTime 5 147.32 cm 35.8 kg/m2 08899.1 g 94 % 72 /min 18 /min 97 [degF] 102/64 mm[Hg] [facility] 5 08:33:29 Date Recorded Body height Body mass index (BMI) Body weight Oxygen saturation Heart rate Respiratory rate Body temperature Systolic And Diastolic Provider Name and Address Organization Details Last Updated DateTime 5 147.32 cm 36.6 kg/m2 58263.3 6 g 95 % 68 /min 18 /min 97.1 [degF] 120/70 mm[Hg] [facility] 5 10:48:08 Date Recorded Body height Body mass index (BMI) Body weight Oxygen saturation Heart rate Respiratory rate Body temperature Systolic And Diastolic Provider Name and Address Organization Details Last Updated DateTime 5 147.32 cm 36.9 kg/m2 71409.0 6 g 95 % 70 /min 18 /min 97.1 [degF] 108/60 mm[Hg] [facility] 5 08:36:10 Date Recorded Body height Body mass index (BMI) Body weight Oxygen saturation Heart rate Respiratory rate Body temperature Systolic And Diastolic Provider Name and Address Organization Details Last Updated DateTime 5 147.32 cm 39.1 kg/m2 89856.7 7 g 90 % 67 /min 18 /min 98 [degF] 116/72 mm[Hg] [facility] 5 12:46:20 Social History None recorded. Functional Status None recorded. Mental Status None recorded. Family History Nothing Reported. Medical History No medical history recorded. Gynecological HistoryNo gynecological history recorded. Obstetrics History GPAL:G 0 P 0 0 0 0 Immunizations Vaccine Type Date Status Note Provider Nam e and Address Organization Details Recorded Time Influenza, split virus, quadrivalent, PF 02/28/2022 completed Not Available [facility] 5 11:14:10 Influenza, split virus, quadrivalent, PF 02/07/2023 completed Not Available [facility] 5 11:14:10 Influenza, split virus, trivalent, PF 02/01/2024 completed Not Available [facility] 2024 11:14:10 Past Encounters Encounter ID Performer Location Encounter Start Date Encounter Closed Date Diagnosis/Indication Diagnosis SNOMED-CT Code Diagnosis ICD10 Code Diagnosis IMO Codes Diagnosis Note [id number] Wilian Mcgowan DO [facility] ([facility]) [address] [place] [phone] 11/22/2024 08:11:49 11/26/2024 18:25:24 Chronic obstructive pulmonary disease 39113229 J44.9 [id number] Continues inhalers, Breztri. Generalize d anxiety disorder 70868668 F41.1 77201 Continue Sertraline . Type 2 mina betes mellitus 95676429 E11.59 E11.69 59795391 A1c 6.2 on 11/18/24, continue SS Humalog, continue monitoring glucose, consider switching to long acting insulin at next visit. Malignant neoplasm of sigmoid colon 318290029 C18.7 43162 11/22/24: Following with Oncology, on oral Chemo. Atrial fibrillation 4943 6004 I48.91 44107082 Continue Eliquis. Senile asthenia 25830280 R54 R26.2 Z74.1 R53.83 2642097 Paroxysmal atrial fibrillation 142297754 I48.0 25380 Continue Eliquis. Chronic di astolic heart failure 190111127 I50.32 5671629 stable. continue f/u with cardiology . will monitor weight, swelling. Essential hypertension 14556080 I10 115282 stable. continue lisinopril , metoprolol Mixed hyperlipidemia 267 519047 E78.2 53435 Stable. Will repeat labs q 12 mts. Continue Atorvastat in. Counseled on diet and exericse. Anemia 778991638 D64.9 43323206 repeat labs. Morbid obesity 754084817 E66.01 48804 with active colon cancer. weight loss expected. Moderate r ecurrent major depression 41053469 F33.1 20454 stable. continue sertraline . Abdominal aortic aneurysm without rupture 57213318 I71.40 5614254648 continue care with cardiology [id number] Wilian Mcgowan DO [facility] ([facility]) [address] [place] [phone] 12/20/2024 08:23:11 12/23/2024 15:30:29 Chronic obstructive pulmonary disease 04453209 J44.9 150916684 Continues inhalers, Breztri. Generalize d anxiety disorder 18803813 F41.1 85072 Continue Sertraline . Type 2 mina betes mellitus 28608958 E11.59 E11.69 11425783 A1c 6.2 on 11/18/24, continue SS Humalog, continue monitoring glucose, consider switching to long acting insulin at next visit. Malignant neoplasm of sigmoid colon 713153264 C18.7 89460 11/22/24: Following with Oncology, on oral Chemo. Atrial fibrillation 4943 6004 I48.91 90304795 Continue Eliquis. Senile asthenia 80000986 R54 R26.2 Z74.1 R53.83 9274357 Paroxysmal atrial fibrillation 564639368 I48.0 30324 Continue Eliquis. Chronic di astolic heart failure 964320668 I50.32 3329989 stable. continue f/u with cardiology . will monitor weight, swelling. Essential hypertension 23238568 I10 146056 stable. continue lisinopril , metoprolol Mixed hyperlipidemia 267 903769 E78.2 73410 Stable. Will repeat labs q 12 mts. Continue Atorvastat in. Counseled on diet and exericse. Anemia 021979557 D64.9 71693148 repeat labs. Morbid obesity 736319343 E66.01 29747 with active colon cancer. weight loss expected. Moderate r ecurrent major depression 37679194 F33.1 08733 stable. continue sertraline . Abdominal aortic aneurysm without rupture 78896530 I71.40 5898815778 continue care with cardiology Skin ulcer 61048285 L98. 676 5024659 12/20/24: continue dressing changes and reposition 3 times a shift. pt to get up and ambulate TID [id number] Wilian Mcgowan DO [facility] ([facility]) [address] [place], [place] [address] 01/17/2025 08:17:27 2025 15:51:19 Chronic diastolic heart failure 865368255 I50.32 [id number] 01/17/25: Start Entresto 24/26mg BID, having weight gain. Continue Furosemide . Type 2 mina betes mellitus 66690191 E11.59 E11.69 72290247 01/17/25: A1c 6.2 on 11/18/24, Reviewed short acting usage, stop Humalog, start Basaglar 15u at hs. F/u 2 weeks, consider decreasing frequency of accuchecks . [id number] Wilian Mcgowan DO [facility] ([facility]) [address] [place] [phone] 01/24/2025 08:15:13 01/30/2025 12:42:56 Chronic diastolic heart failure 923241546 I50.32 5191668 01/24/25: continue Entresto. HI to monitor BP closely.: Start Entresto 24/26mg BID, having weight gain. Continue Furosemide . Type 2 mina betes mellitus 61041647 E11.59 E11.69 56212049 01/24/25: Increase Basaglar from 15u to 18u at hs, accuchecks only BID. 5: A1c 6.2 on 11/18/24, Reviewed short acting usage, stop Humalog, start Basaglar 15u at hs. F/u 2 weeks, consider decreasing frequency of accuchecks . Essential hypertension 30055619 I10 386879 stable. continue lisinopril , metoprolol [id number] Wilian Mcgowan DO [facility] ([facility]) [address] [place] [phone] 01/31/2025 08:31:16 02/04/2025 12:40:59 Type 2 diabetes mellitus 29810335 E11.59 E11.69 93518857 01/31/25: increase Basaglar from 18u to 20u q hs. Continue Accuchecks BID. 5: Increase Basaglar from 15u to 18u at hs, accuchecks only BID. 5: A1c 6.2 on 11/18/24, Reviewed short acting usage, stop Humalog, start Basaglar 15u at hs. F/u 2 weeks, consider decreasing frequency of accuchecks . Gastroesop hageal reflux disease 447728418 K21.9 0633445456 01/31/25: Continue Omeprazole 40mg daily. [id number] Wilian Mcgowan DO [facility] ([facility]) [address] [place] [phone] 02/07/2025 08:14:44 02/11/2025 16:37:45 Type 2 diabetes mellitus 90735817 E11.59 E11.69 [id number] 02/07/25: Continue Basaglar 20u, decrease Accucheck to once daily.01/31: increase Basaglar from 18u to 20u q hs. Continue Accuchecks BID. 5: Increase Basaglar from 15u to 18u at hs, accuchecks only BID. 5: A1c 6.2 on 11/18/24, Reviewed short acting usage, stop Humalog, start Basaglar 15u at hs. F/u 2 weeks, consider decreasing frequency of accuchecks . Chronic ob structive pulmonary disease 45431643 J44.9 118497067 Continues inhalers, Breztri. Chronic hy percapnic respiratory failure 939770790 J96.12 2572256 Health Concerns Section Related Observation LastModified by Organization Detai ls LastModified Time None Recorded Concern Status LastModified by Organization Details LastModified Time None Recorded Advance Directives Directive None Recorded Payers Insurance Date Sequence Insurance Name Policy Number Policy Blair Covered Member ID Blair Member ID Guarantor Name 04/05/2025 2 [place] Jessa Escalera [id number] Jessa Escalera 11/10/2024 1 [id number] - [place] Jessa Escalera [id number] Jessa Escalera 04/05/2025 1 [id number] (MEDICARE REPLACEMENT/ ADVANTAGE - PPO) Jessa Escalera [id number] Jessa Escalera 04/05/2025 [place] [facility] [place] Jessa Escalera [id number] Jessasa Escalera Notes Date Note Type Note Provider Name and Address Organization Details Recorded Time 01/17/2025 text/html ROS as noted in the HPI We are evaluating pt in [place] today to f/u on fluid and weight. Plan at last visit:Type 2 diabetes mellitus with other specified complication, without long-term current use of michgodO9t 6.2 on 11/18/24, continue SS Humalog, continue monitoring glucose, consider switching to long acting insulin at next visit. == Continues Lasix 40mg BID.Weight increasing with DCHF. Continues Humalog, averaging 3u at breakfast, 7u at lunch, 5u at dinner, 6u at hs. Wilian Mcgowan DO [address] [place] [address], [phone], [facility] 01/17/2025 12:32:31 01/24/2025 text/html ROS as noted in the HPI We are evaluating pt today in [facility] for recheck of CHF and DM. We started Entresto and Basaglar one week ago, on 01/17/25, stopped Humalog. Mild weight fluctuating, overall in the last 3 weeks she is holding steady. Glucose running mid 100-mid 200's. BP running 100-1teen's/ 60's. Pt reports she is feeling better. Denies any fever/ chills/ CP/ SOB. Wilian Mcgowan DO [address] [place] [address], [phone], [facility] 01/24/2025 09:45:41 01/31/2025 text/html ROS as noted in the HPI We are seeing pt in [place] today for recheck of DM. Plan at last visit:Type 2 diabetes mellitus with other specified complication, without long-term current use of insulin01/24/25: Increase Basaglar from 15u to 18u at hs, accuchecks only BID. Lowest glucose has been 115, averaging lower 200's. C/o acid reflux. Taking Omeprazole 40mg daily. Wilian Mcgowan DO [address] [place] [address], [phone], [facility] 01/31/2025 15:41:03 02/07/2025 text/html ROS as noted in the HPI We are seeing pt in [place] today for recheck of DM after increasing Basaglar. Accuchecks BID, lower 100's-200's throughout the day.Tolerating Basalgar. Wilian Mcgowan DO [address] [place] [address], [phone], [facility] 02/07/2025 12:23:22 04/06/2025 text/html ROS as noted in the HPI We are evaluating pt today in [facility] for routine f/u. Pt in their usual state and doing well. A1c 7.6 on 02/19/25. Glucose running 200-300's.Taking Basaglar 20u at hs. She c/o right ear/ jaw pain. Tiffanie her seen her for this, referred to Dentist, pending appt. Not Available Not Available Not Available OBGyn Episode No OBEpisode recorded.
--- OUTSIDE RECORDS SUMMARY | 2025-04-10 23:49 | XMS_ITS | Encounter Summary ---
Author Organization [facility] Address [address] [place] [address] Care Team Providers Care Youth Associate Name Role Phone Amie Emery MD Primary Care Provider [phone] Encounter Details Date Type Department Care Team (Late st Contact Info) Description 06/04/2007 Outpatient Historical [facility] Rheumatology- Jw Chung [place] [address] [place] [phone] Atul Brooks, [address] [facility] [address] [place] [address] Social History Tobacco Use Types Packs/Day Years Used Date Smoking Tobacco: Never Assessed Comments Unknown Sex and Gender Information Value Date Recorded Sex Assigned at Not on file 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 [employer]ER [employer] documented in this encounter Plan of Treatment Not on file documented as of this encounter Visit Diagnoses Not on filedocumented in this encounter Care Teams Youth Associate Relationship Specialty Start Date End Date Amie Emery MD [address] [place] [address] PCP - General Internal Medicine 12/20/18 documented as of this encounter
--- OUTSIDE RECORDS SUMMARY | 2025-04-10 23:49 | XMS_ITS | Encounter Summary ---
Author Organization [facility] Address [address] [place] [address] Care Team Providers Care Police Sergeant Name Role Phone Rosemary Herman Primary Care Provider Encounter Details Date Type Department Care Team (Late st Contact Info) Description 05/13/2024 Specialty Pharmacy [facility] [address] [facility] [place] [address] Theodore Jesus, PHARMACIST Social History Tobacco Use Types Packs/Day Years Used Date Smoking Tobacco: Every Day Cigarettes Passive Smoke Exposure: Current Smokeless Tobacco: Former Alcohol Use Standard Drinks/Week Comments Not Currently 0 (1 standard drink = 0.6 oz pur e alcohol) Feeling Safe Answer Date Recorded Are you in a relationship wi th someone who hurts you emotionally and/or physically? 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
--- OUTSIDE RECORDS SUMMARY | 2025-04-10 23:49 | XMS_ITS | Encounter Summary ---
Author Organization [employer] [facility] Address [address] [place] [address] Care Team Providers Care Drilling Machine Operator Name Role Phone Rosemary Herman Primary Care Provider [phone] Encounter Details Date Type Department Care Team (Late st Contact Info) Description 03/13/2024 Telephone [facility] [place] [address] [facility] [address] [place] [address] Greg Corona MD [address] [address] Social History Tobacco Use Types Packs/Day Years Used Date Smoking Tobacco: Every Day Cigarettes Passive Smoke Exposure: Current Smokeless Tobacco: Former Alcohol Use Standard Drinks/Week Comments Not Currently 0 (1 standard drink = 0.6 oz pur e alcohol) Feeling Safe Answer Date Recorded Are you in a relationship wi th someone who hurts you emotionally and/or physically? 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 II TUBE BENDER documented in this encounter Plan of Treatment Not on file documented as of this encounter Visit Diagnoses Not on filedocumented in this encounter Additional Health Concerns Infection Onset Date Last Indicated Resolved Time R/O C. diff 02/28/2024 02/28/2024 03/27/2024 10:1 3 AM HAND II TUBE BENDER R/O COVID-19 03/26/2024 03/26/2024 03/26/2024 8:51 AM HAND II TUBE BENDER R/O COVID-19 03/26/2024 03/26/2024 03/26/2024 9:14 AM HAND II TUBE BENDER documented as of this encounter Care Teams Drilling Machine Operator Relationship Specialty Start Date End Date Rosemary Herman DO [address] [place] [address] PCP - General Family Practice 12/22/23 documented as of this encounter
--- OUTSIDE RECORDS SUMMARY | 2025-04-10 23:49 | XMS_ITS | Continuity of Care Document ---
Author Organization [facility] Kenneth, [place], [facility] ([facility]) Address [address] [place] [address] Assessment No assessment recorded. Plan of Treatment Reminders Order Date Submit Date Provider Last Modified By Organization Details Last Modified Time Details Appointments None recorded. Lab None recorded. Referral None recorded. Procedures None recorded. Surgeries None recorded. Imaging None recorded. Medication Orders Basaglar KwikPen U-100 Insulin 100 unit/mL (3 mL) subcutaneou s [address] [facility], [address] [place] [address], [address], 5 15:38:08 Patient TargetsNo targets recorded. Patient InstructionsNo instructions recorded. Reason for Referral None Reported. Problems Name Problem SNOMED Code Status Onset Date Resolution Date Notes Provider Name and Address Organization Details Recorded Time Chronic hypercapnic respiratory failure 985458165 Active 2024 [facility] 15:00:50 Chronic obstructive pulmonary disease 59571349 Active 2024 [facility] 15:01:07 Paroxysmal atrial fibrillatio n 545065156 Active 2024 [facility] 15:01:28 Type 2 diabetes mellitus 34196742 Active 2024 [facility] 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 15:04:41 Essential hypertensio n 66236067 Active 2024 Ashlee Penelope man [facility] 15:05:10 Recurrent major depression in full remission 03318419 Active 2024 Ashlee man, [facility] 15:05:26 Malignant neoplasm of sigmoid colon 951102544 [facility] 15:05:39 Chronic diastolic heart failure 723222038 Active 2024 Ashlee man [facility] 15:05:59 Disorientat ed 78796041 Active 2024 Ashlee Negrete [facility] 15:06:16 Diverticuli tis of intestine 713591407 Active 2024 Ashlee Negrete [facility] 15:06:39 Noninfectio us gastroenter itis 19656029 Active 2024 Ashlee Penelope man [facility] 15:07:32 Anemia 866530051 Active 2024 Ashlee Negrete [facility] 15:08:41 Atrial fibrillatio n 72229613 Active 2024 Ashlee man [facility] 15:09:25 Obesity caused by energy imbalance 580754073 Active 2024 Ashlee man, [facility] 15:09:40 Benign neoplasm of adrenal gland 79682429 Active 2024 Ashlee man, [facility] 15:09:57 Gastroesoph ageal reflux disease without esophagitis 070081873 Active 2024 Ashlee man, [facility] 15:10:30 Aneurysm of infrarenal abdominal aorta 425943079 Active 2024 Ashlee man, [facility] 15:10:41 Constipatio n 89812550 Active 2024 [facility] 15:11:05 Iron deficiency anemia due to blood loss 799686909 Active 2024 Ashlee Negrete [facility] 15:11:19 Primary hyperparath yroidism 87741075 Active 2024 Ashlee Negrete [facility] 15:11:36 Hypomagnese teresa 183639420 Active 2024 Ashlee Negrete [facility], [facility] 15:12:05 Hypokalemia 98899426 Active 2024 Ashlee Negrete [facility] 15:12:21 Generalized anxiety disorder 07787387 Active 2024 Ashlee Negrete [facility] 15:12:30 Bilateral senile combined form cataracts of eyes 7752409865959 08 Active 2024 Ashlee man, [facility] 15:12:42 Old myocardial infarction 6018285 Active 2024 Ashlee man, [facility] 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 5 15:13:08 Senile asthenia 65574750 Active 2024 Wilian Mcgowan [place] [address] 5, [facility] 17:29:01 Mixed hyperlipide teresa 929789357 Active [address], [address] [place] [address] 5, [facility] 17:30:00 Abdominal aortic aneurysm without rupture 45388230 Active [address], [address] [place] [address] 5, [facility] 17:32:12 Moderate recurrent major depression 24183120 Active [address], [address] [place] [address] 5, [facility] 17:32:17 Morbid obesity 112301655 Active 2024 Wilianoniel Starrmarcelo [place] [address] 5, [facility] 17:32:19 Metastatic malignant neoplasm to liver 63731135 Active 2024 Ruy Kiest null, [facility] 14:45:02 Paralytic syndrome on one side of the body 902646232 Active 2024 Ruy man [facility] 14:46:29 Problem Notes None recorded. Medical Equipment None Reported. Allergies Allergen ID Allergen Name Allergen Category Reaction Reaction Severity Criticality Documentation Date Start Date Code Code System Note Provider Name and Address Organization Details Recorded Time 33634 cyclizine medicatio n Not available Not available Not available 11/22/2024 2977 RxNorm Ashlee Negrete [facility] 11:49:09 97923 doxycycli ne Not available Not available Not available Not available 11/22/2024 3640 RxNorm Ashlee Negrete [facility] 11:49:17 67080 erythromy brittany medicatio n Not available Not available Not available 11/22/2024 4053 RxNorm Ashlee Negrete [facility] 11:49:25 18066 naproxen medicatio n Not available Not available Not available 11/22/2024 7258 RxNorm Ashlee Negrete [facility] 11:49:32 27380 Product containin g penicilli n (product) medicatio n Not available Not available Not available 11/22/2024 38675 8001 SNOMED Ashlee Negrete [facility] 11:49:41 37524 Substance with sulfonami de structure and antibacte rial mechanism of action (substanc e) medicatio n Not available Not available Not available 11/22/2024 54603 8003 SNOMED [facility] 11:49:48 76587 cultivate d mushroom extract food,medi cation Not available Not available Not available 11/22/2024 70787 17 RxNorm [facility] 11:49:58 Medications Name Sig Start Date Stop [...] t Available capecitabin e 500 mg tablet [id number] mg by mouth two times a day 14 days on and 7days off for cancer until 5 23:59 [id number] g twice daily X 14 days, then [...] Not Available Not Available Not Avai lable triamcinolo ne acetonide 0.1 % topical cream [...] 2024 active Not Available Not Available Not Joie vuong Denise [place] U-100 Insulin 100 unit/mL (3 mL) subcutaneou s Inject 26 units every day by subcutane ous route at bedtime, for DM. 2024 active Not Available Not Available Not Joie vuong Carminetrchaka Aerosphere 160 mcg-9mcg-4. 8mcg/actuat ion HFA aerosol [...] Updated DateTime 5 147.32 cm 36.6 kg/m2 87668.3 6 g 95 % 68 /min 18 /min 97.1 [degF] 120/70 mm[Hg] Ashlee Negrete [facility], [facility] 5 10:48:08 Social History None recorded. Functional Status None recorded. Mental Status None recorded. Family History Nothing Reported. Medical History No medical history recorded. Gynecological HistoryNo gynecological history recorded. Obstetrics History GPAL:G 0 P 0 0 0 0 Immunizations Vaccine Type Date Status Note Provider Nam e and Address Organization Details Recorded Time Influenza, split virus, quadrivalent, PF 02/28/2022 completed Not [facility] 5 11:14:10 Influenza, split virus, quadrivalent, PF 02/07/2023 completed Not Available [facility] 5 11:14:10 Influenza, split virus, trivalent, PF 02/01/2024 completed Not Available [facility] 2024 11:14:10 Past Encounters Encounter ID Performer Location Encounter Start Date Encounter Closed Date Diagnosis/Indication Diagnosis SNOMED-CT Code Diagnosis ICD10 Code Diagnosis IMO Codes Diagnosis Note [id number] Wilian Mcgowan DO [facility] ([facility]) [address] [place] [address] 01/17/2025 08:17:27 2025 15:51:19 Chronic diastolic heart failure 210795668 I50.32 [id number] 01/17/25: Start Entresto 24/26mg BID, having weight gain. Continue Furosemide . Type 2 mina betes mellitus 23418304 E11.59 E11.69 [id number] 01/17/25: A1c 6.2 on 11/18/24, Reviewed short acting usage, stop Humalog, start Basaglar 15u at hs. F/u 2 weeks, consider decreasing frequency of accuchecks . [id number] Wilian Mcgowan DO [facility]) [address] [place] [address] 01/24/2025 08:15:13 01/30/2025 12:42:56 Chronic diastolic heart failure 995778627 I50.32 2341391 01/24/25: continue Entresto. CT to monitor BP closely.: Start Entresto 24/26mg BID, having weight gain. Continue Furosemide . Type 2 mina betes mellitus 58158242 E11.59 E11.69 [id number] 01/24/25: Increase Basaglar from 15u to 18u at hs, accuchecks only BID. 5: A1c 6.2 on 11/18/24, Reviewed short acting usage, stop Humalog, start Basaglar 15u at hs. F/u 2 weeks, consider decreasing frequency of accuchecks . Essential hypertension 45612073 I10 079055 stable. continue lisinopril , metoprolol [id number] Wilian Mcgowan DO [facility] ([facility]) [address] [place] [address] 01/31/2025 08:31:16 02/04/2025 12:40:59 Type 2 diabetes mellitus 92699737 E11.59 E11.69 [id number] 01/31/25: increase Basaglar from 18u to 20u q hs. Continue Accuchecks BID. 5: Increase Basaglar from 15u to 18u at hs, accuchecks only BID. 5: A1c 6.2 on 11/18/24, Reviewed short acting usage, stop Humalog, start Basaglar 15u at hs. F/u 2 weeks, consider decreasing frequency of accuchecks . Gastroesop hageal reflux disease 869429166 K21.9 [id number] 01/31/25: Continue Omeprazole 40mg daily. Health Concerns Section Related Observation LastModified by Organization Detai ls LastModified Time None Recorded Concern Status LastModified by Organization Details LastModified Time None Recorded Payers Encounter Date Sequence Insurance Name Policy Number Policy Blair Covered Member ID Blair Member ID Guarantor Name 01/31/2025 1 [employer] (MEDICARE REPLACEMENT/ ADVANTAGE - PPO) Jessa Escalera [id number] Jessa Escalera 01/31/2025 2 [place] Jessa Escalera [id number] Jessa Escalera Notes Date Note Type Note Provider Name and Address Organization Details Recorded Time 01/31/2025 text/html ROS as noted in the HPI We are seeing pt in CT today for recheck of DM. Plan at last visit:Type 2 diabetes mellitus with other specified complication, without long-term current use of insulin01/24/25: Increase Basaglar from 15u to 18u at hs, accuchecks only BID. ========= Lowest glucose has been 115, averaging lower 200's. C/o acid reflux. Taking Omeprazole 40mg daily. Wilian Mcgowan, DO [address] [place] [address], [address], [facility], LDeondre 01/31/2025 15:41:03 OBGyn Episode No OBEpisode recorded.
--- OUTSIDE RECORDS SUMMARY | 2025-04-10 23:49 | XMS_ITS | Encounter Summary ---
Author Organization [facility] Address [address] [place] [address] Care Team Providers Care Armored Transport Service Manager Name Role Phone Amie Emery MD Primary Care Provider +1- [phone] Encounter Details Date Type Department Care Team (Latest Contact Info) Description 05/05/2006 Outpatient Historical [facility] Gen Spec [place]urg [place] [address] 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
--- OUTSIDE RECORDS SUMMARY | 2025-04-10 23:49 | XMS_ITS | Clinical Summary ---
Author Organization [facility] Address [address] [place] [address] Care Team Providers Care Customs Brokerage Agent Name Role Phone Amie Emery MD Primary Care Provider +1- [phone] Allergies Active Allergy Reactions Criticality Noted Date [...] tablet Take 30 mg by mouth daily engineer systems. Active prasugrel (EFFIENT) 10 mg Tablet Take [...] 6 Tablets 20 Tablet 06/02/19 5:42 PM OPEN HEARTH FURNACE LABORER Active Active Problems Problem Noted Date Diagnosed [...] on file Legal Sex Female 6:22 AM OPEN HEARTH FURNACE LABORER Gender Identity Not on file Sexual Orientation Not on file Last Filed Vital Signs Vital Sign Reading Time Taken Comments Blood Pressure 118/88 06/30/2020 1:13 PM OPEN HEARTH FURNACE LABORER Pulse 89 06/02/2020 5:10 PM OPEN HEARTH FURNACE LABORER Temperature 36.4 C (97.6 F) 06/02/2020 5:10 PM OPEN HEARTH FURNACE LABORER Respiratory Rate 16 06/02/2020 5:10 PM OPEN HEARTH FURNACE LABORER Oxygen Saturation 94% 06/02/2020 5:10 PM OPEN HEARTH FURNACE LABORER Inhaled Oxygen Concentration - - Weight 113.9 kg (251 lb) 06/30/2020 1:13 PM OPEN HEARTH FURNACE LABORER Height 152.4 cm (5') 06/30/2020 1:13 PM OPEN HEARTH FURNACE LABORER Body Mass Index 49.02 06/30/2020 1:13 PM OPEN HEARTH FURNACE LABORER Plan of Treatment Health Maintenance Due Date Last Done Comments DIABETES ANNUAL FOOT EXAM 1973 DIABETES MICROALBUMIN ANNUAL SCREEN 1973 DTAP/TDAP/TD VACCINES (1 - Tdap) 1974 PNEUMOCOCCAL VACCINE 50+ YEA RS (1 of 2 - PCV) 1974 COLORECTAL SCREENING 01/21/2000 Colorectal Cancer Screening 01/21/2000 FIT-DNA Q 3 years 01/21/2000 FIT/FOBT Q 1 year 01/21/2000 Flex Sig/CT Colonography Q 5 years 01/21/2000 RSV VACCINE (60+ or ) (1 - Risk 50-74 years 1-dose series) 2005 ZOSTER VACCINE (1 of 2) 2005 BREAST CANCER SCREENING 08/21/2019 08/20/2018, 01/11 DIABETES ANNUAL RETINAL EXAM 04/23/2020, 04/23/2019, 04/23/2019, Additional history exists LDL CHOLESTEROL ANNUAL 06/04/2020 06/04/2019, 2006 DIABETES HBA1C Q 6 MONTHS 06/25/20202019, 09/09/2019, 06/04/2019, Additional history exists OSTEOPOROSIS SCREENING 06/19/2024 06/19/2019, 2014 INFLUENZA VACCINE (#1) 2024 03/30/2020, 2018 Medical Devices Implanted Type Area Sweeper Driver Device Identifier Shelf Expiration Date Model / Serial / Lot Clip Ligating Horizon [id number] - [id number] Implanted:Qty: 1 on 06/02/2020 by Yasmany Sanchez MD at [facility] Clip N/A: Neck [employer] [id number] 05/14/2024 [id number] / / [id number] Lens Io Tecnis 1pc 20.0 [id number] - [id number] Implanted:Qty: 1 on 04/18/2019 by Dar Lepe MD at [facility] Right: Eye [employer] 01/21/2023 [id number] / [id number] / Lens Io Tecnis 1pc 20.5 [id number] - [id number] Implanted:Qty: 1 on 04/30/2019 by Dar Lepe MD at [facility] Left: Eye [employer] 12/29/2022 [id number] / [id number] / Procedures Procedure Name Priority Date/Time Associated Diagnosis Comments LIPID PANEL Routine 06/04/2019 HEMOGLOBIN A1C Routine 10/09/2018 from Last 3 Months or Most Recently Relevant to Health Maintenance Results * LIPID PANEL (06/04/2019) ABSTRACTED CHOLESTEROL 154 ABSTRACTED TRIGLYCERIDE 124 ABSTRACTED HDL 55 ABSTRACTED LDL CALCULATED 74 CHOLESTEROL TRIGLYCERIDE HDL LDL CALCULATED Blood 06/04/2019 [facility] [place] [facility] [place] CHEMISTRY ORDERABLES Final Result * HEMOGLOBIN A1C (10/09/2018) Blood [place] [facility] [place] [facility] [place] CHEMISTRY ORDERABLES Final Result from Last 3 Months or Most Recently Relevant to Health Maintenance Insurance [place] [employer] [facility] RX [employer] Medicare Part D RX INFOCROSSING Medicaid Advance Directives For more information, please contact: [phone] * Full Code (Latest Code Status on File) Date Activated Date Inactivated Comments 04/30/2019 9:19 AM 04/30/2019 12:37 PM * Full Code Date Activated Date Inactivated Comments 04/18/2019 8:44 AM 04/18/2019 12:32 PM Care Teams Customs Brokerage Agent Relationship Specialty Start Date End Date Amie Emery MD [address] [place] [id number] PCP - General Internal Medicine 12/20/18
[2025-04-10 23:50] VITALS: BP 132/74; PULSE 78; O2SAT 98
--- OUTSIDE RECORDS SUMMARY | 2025-04-10 23:50 | XMS_ITS | Encounter Summary ---
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) Social History Tobacco Use Types Packs/Day Years Used Date Smoking Tobacco: Never Assessed Comments Unknown Sex and Gender Information Value Date Recorded Sex Assigned at Not on file Legal Sex Female 6:22 AM 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
--- OUTSIDE RECORDS SUMMARY | 2025-04-10 23:50 | XMS_ITS | Encounter Summary ---
Author Organization [facility] Address [address] [place] [address] Care Team Providers Care Owner Spa Director Name Role Phone Amie Emery MD Primary Care Provider +1- [phone] Encounter Details Date Type Department Care Team (Late st Contact Info) Description 08/30/2006 Outpatient Historical [facility] Social History Tobacco Use Types Packs/Day Years Used Date Smoking Tobacco: Never Assessed Comments Unknown Sex and Gender Information Value Date Recorded Sex Assigned at Not on file 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
--- OUTSIDE RECORDS SUMMARY | 2025-04-10 23:50 | XMS_ITS | Encounter Summary ---
Author Organization [facility] Address [address] [place] [address] Care Team Providers Care Wind Energy Mechanic Name Role Phone Amie Emery MD Primary Care Provider +1- [phone] Encounter Details Date Type Department Care Team (Latest Contact Info) Description 03/11/2005 Outpatient Historical [facility] Orthopedics[address] [place] [address] Roberth Wynn MD NO ADDRESS ON FILE JOINT PAIN-FOREARM (Primary Dx) Social History Tobacco Use Types Packs/Day Years Used Date Smoking Tobacco: Never Assessed Comments Unknown Sex and Gender Information Value Date Recorded Sex Assigned at Not on file Legal Sex Female 6:22 AM PHYSICIAN PRESIDENT Gender Identity Not on file Sexual Orientation Not on file documented as of this encounter Plan of Treatment Not on file documented as of this encounter Visit Diagnoses Diagnosis Pain in joint, forearm- Primary documented in this encounter Care Teams Wind Energy Mechanic Relationship Specialty Start Date End Date Amie Emery MD [address] [place] [address] PCP - General Internal Medicine 12/20/18 documented as of this encounter
--- OUTSIDE RECORDS SUMMARY | 2025-04-10 23:50 | XMS_ITS | Encounter Summary ---
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) Social History Tobacco Use Types Packs/Day Years Used Date Smoking Tobacco: Never Assessed Comments Unknown Sex and Gender Information Value Date Recorded Sex Assigned at Not on file Legal Sex Female 6:22 AM IS CONSULTANT Gender Identity Not on file Sexual Orientation Not on file documented as of this encounter Plan of Treatment Not on file documented as of this encounter Visit Diagnoses Diagnosis 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
--- OUTSIDE RECORDS SUMMARY | 2025-04-10 23:50 | XMS_ITS | Encounter Summary ---
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 Social History Tobacco Use Types Packs/Day Years Used Date Smoking Tobacco: Never Assessed Comments Unknown Sex and Gender Information Value Date Recorded Sex Assigned at Not on file Legal Sex Female 6:22 AM ADULT DAY CARE WORKER Gender Identity Not on file Sexual Orientation Not on file documented as of this encounter Plan of Treatment Not on file documented as of this encounter Visit Diagnoses Diagnosis Type II or unspecified type diabetes mellitus without mention of complication, not stated as uncontrolled- Primary 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
--- OUTSIDE RECORDS SUMMARY | 2025-04-10 23:50 | XMS_ITS | Encounter Summary ---
Author Organization [facility] Address [address] [place] [address] Care Team Providers Care Shellfish Shucker Name Role Phone Amie Emery MD Primary Care Provider +1- [phone] Encounter Details Date Type Department Care Team (Latest Contact Info) Description 06/30/2006 Outpatient Historical [facility] Gen Spec Surg [address] [place] [address] Jimmy Bender MD NO ADDRESS ON FILE Benign Eldon Adrenal (Primary Dx); Follow-Up Examination, Following Unspecified Surgery Social History Tobacco Use Types Packs/Day Years Used Date Smoking Tobacco: Never Assessed Comments Unknown Sex and Gender Information Value Date Recorded Sex Assigned at Not on file Legal Sex Female 6:22 AM MINER Gender Identity Not on file Sexual Orientation Not on file documented as of this encounter Plan of Treatment Not on file documented as of this encounter Visit Diagnoses Diagnosis Benign eldon adrenal- Primary Benign neoplasm of adrenal gland Follow-up examination, following unspecified surgery documented in this encounter Care Teams Shellfish Shucker Relationship Specialty Start Date End Date Amie Emery MD [address] [place] [address] PCP - General Internal Medicine 12/20/18 documented as of this encounter
--- OUTSIDE RECORDS SUMMARY | 2025-04-10 23:50 | XMS_ITS | Encounter Summary ---
Author Organization [facility] Address [address] [place] [address] Care Team Providers Care Frame Pulley Mortising Machine Operator Name Role Phone Amie Emery MD Primary Care Provider +1- [phone] Encounter Details Date Type Department Care Team (Latest Contact Info) Description 08/30/2006 Outpatient Historical [facility] Endocrinology-Jw [address]ung [address] [place] [address] Kristopher Armando MD NO ADDRESS ON FILE DM w/o Complication Type II (CMS/HCC) (Primary Dx) Social History Tobacco Use Types Packs/Day Years Used Date Smoking Tobacco: Never Assessed Comments Unknown Sex and Gender Information Value Date Recorded Sex Assigned at Not on file Legal Sex Female 6:22 AM ORBITREAD OPERATOR Gender Identity Not on file Sexual Orientation Not on file documented as of this encounter Plan of Treatment Not on file documented as of this encounter Visit Diagnoses Diagnosis Type II or unspecified type diabetes mellitus without mention of complication, not stated as uncontrolled- Primary documented in this encounter Care Teams Frame Pulley Mortising Machine Operator Relationship Specialty Start Date End Date Amie mEery MD [address] [place] [address] PCP - General Internal Medicine 12/20/18 documented as of this encounter
--- OUTSIDE RECORDS SUMMARY | 2025-04-10 23:50 | XMS_ITS | Encounter Summary ---
Author Organization [employer] [facility] Address [address] [place] [address] Care Team Providers Care Imcu Specialist Name Role Phone Amie Emery MD Primary Care Provider +1- [phone] Encounter Details Date Type Department Care Team (Latest Contact Info) Description 07/31/2006 Outpatient Historical [facility] [address] [place] [address] Kristopher Armando MD NO ADDRESS ON FILE DM w/o Complication Type II, Uncontrolled (Primary Dx) Social History Tobacco Use Types Packs/Day Years Used Date Smoking Tobacco: Never Assessed Comments Unknown Sex and Gender Information Value Date Recorded Sex Assigned at Not on file 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
--- OUTSIDE RECORDS SUMMARY | 2025-04-10 23:50 | XMS_ITS | Continuity of Care Document ---
Author Organization [facility] Kenneth, [place], [facility] ([facility]) Address [address] [place] [address] Assessment No assessment recorded. Plan of Treatment Reminders Order Date Submit Date Provider Last Modified By Organization Details Last Modified Time Details Appointments None recorded. Lab None recorded. Referral None recorded. Procedures None recorded. Surgeries None recorded. Imaging None recorded. Medication Orders Basaglar KwikPen U-100 Insulin 100 unit/mL (3 mL) subcutaneou s [address] [facility], [address] [place] [address], [address], 5 09:43:38 Patient TargetsNo targets recorded. Patient InstructionsNo instructions recorded. Reason for Referral None Reported. Problems Name Problem SNOMED Code Status Onset Date Resolution Date Notes Provider Name and Address Organization Details Recorded Time Chronic hypercapnic respiratory failure 732924086 Active 2024 [facility] 15:00:50 Chronic obstructive pulmonary disease 03707403 Active 2024 [facility] 5 15:01:07 Paroxysmal atrial fibrillatio n 390025027 Active 2024 [facility] 15:01:28 Type 2 diabetes mellitus 23114572 Active 2024 [facility] 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 15:04:41 Essential hypertensio n 26038458 Active 2024 Ashlee Penelope man [facility] 15:05:10 Recurrent major depression in full remission 43709856 Active 2024 Ashlee man, [facility] 15:05:26 Malignant neoplasm of sigmoid colon 574645324 [facility] 15:05:39 Chronic diastolic heart failure 917025784 Active 2024 Ashlee man [facility] 15:05:59 Disorientat ed 45948019 Active 20[address] [facility] 15:06:16 Diverticuli tis of intestine 753350773 Active [address] [facility] 15:06:39 Noninfectio us gastroenter itis 41354774 Active 2024 Ashlee Penelope man [facility] 15:07:32 Anemia 705264581 Active [address] [facility] 15:08:41 Atrial fibrillatio n 37670694 Active 2024 Ashlee man [facility] 15:09:25 Obesity caused by energy imbalance 729406279 Active 2024 Ashlee man, [facility] 15:09:40 Benign neoplasm of adrenal gland 25446074 Active 2024 Ashlee man, [facility] 15:09:57 Gastroesoph ageal reflux disease without esophagitis 027974948 Active 2024 Ashlee man, [facility] 15:10:30 Aneurysm of infrarenal abdominal aorta 820055718 Active 2024 Ashlee man, [facility] 15:10:41 Constipatio n 75391922 [facility] 15:11:05 Iron deficiency anemia due to blood loss 365332532 Active 2024 Ashlee Negrete [facility] 15:11:19 Primary hyperparath yroidism 18254992 Active 2024 Ashlee Negrete [facility] 15:11:36 Hypomagnese teresa 229055478 Active 20[address] [facility], [facility] 15:12:05 Hypokalemia 58735711 Active 2024 Ashlee Negrete [facility] 15:12:21 Generalized anxiety disorder 49473815 Active 2024 Ashlee Negrete [facility] 15:12:30 Bilateral senile combined form cataracts of eyes 9085287132861 08 Active 2024 Ashlee man, [facility] 15:12:42 Old myocardial infarction 7517669 Active 2024 Ashlee man, [facility] 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 5 15:13:08 Senile asthenia 92894445 Active 2024 Wilian Mcgowan [place] [address], [facility] 17:29:01 Mixed hyperlipide teresa 162526608 Active [address], [address] [place] [address] 5, [facility] 17:30:00 Abdominal aortic aneurysm without rupture 67631995 Active [address], [address] [place] [address] 5, [facility] 17:32:12 Moderate recurrent major depression 42295028 Active [address], [address] [place] [address] 5, [facility] 17:32:17 Morbid obesity 849408882 Active 2024 Wilianoniel Starrmarcelo [place] [address], [facility] 17:32:19 Metastatic malignant neoplasm to liver 66738959 Active 2024 Ruy Kiest null, [facility] 14:45:02 Paralytic syndrome on one side of the body 231970591 Active 2024 Ruy man [facility] 14:46:29 Problem Notes None recorded. Medical Equipment None Reported. Allergies Allergen ID Allergen Name Allergen Category Reaction Reaction Severity Criticality Documentation Date Start Date Code Code System Note Provider Name and Address Organization Details Recorded Time 53178 cyclizine medicatio n Not available Not available Not available 11/22/2024 2977 RxNorm Ashlee Negrete [facility] 11:49:09 30836 doxycycli ne Not available Not available Not available Not available 11/22/2024 3640 RxNorm Ashlee Negrete [facility] 11:49:17 56403 erythromy brittany medicatio n Not available Not available Not available 11/22/2024 4053 RxNorm Ashlee Negrete [facility] 11:49:25 54478 naproxen medicatio n Not available Not available Not available 11/22/2024 7258 RxNorm Ashlee Negrete [facility] 11:49:32 54570 Product containin g penicilli n (product) medicatio n Not available Not available Not available 11/22/2024 74820 8001 SNOMED Ashlee Negrete [facility] 11:49:41 54185 Substance with sulfonami de structure and antibacte rial mechanism of action (substanc e) medicatio n Not available Not available Not available 11/22/2024 24014 8003 SN[facility]ED [facility] 11:49:48 48311 cultivate d mushroom extract food,medi cation Not available Not available Not available 11/22/2024 67866 17 RxNorm [facility] 5 11:49:58 Medications Name Sig Start Date [...] t Available capecitabin e 500 mg tablet [id number] mg by mouth two times a day 14 days on and 7days off for cancer until 5 23:59 [id number] g twice daily X 14 days, then [...] Updated DateTime 5 147.32 cm 35.8 kg/m2 91374.1 g 94 % 72 /min 18 /min 97 [degF] 102/64 mm[Hg] Ashlee Negrete [facility], [facility] 5 08:33:29 Social History None recorded. Functional Status None recorded. Mental Status None recorded. Family History Nothing Reported. Medical History No medical history recorded. Gynecological HistoryNo gynecological history recorded. Obstetrics History GPAL:G 0 P 0 0 0 0 Immunizations Vaccine Type Date Status Note Provider Nam e and Address Organization Details Recorded Time Influenza, split virus, quadrivalent, PF 02/28/2022 completed Not Available [facility] 5 11:14:10 Influenza, split virus, quadrivalent, PF 02/07/2023 completed Not Available [facility] 5 11:14:10 Influenza, split virus, trivalent, PF 02/01/2024 completed Not Available [facility] 2024 11:14:10 Past Encounters Encounter ID Performer Location Encounter Start Date Encounter Closed Date Diagnosis/Indication Diagnosis SNOMED-CT Code Diagnosis ICD10 Code Diagnosis IMO Codes Diagnosis Note [id number] Wilian Mcgowan DO [facility] ([facility]) [address] [place] [address] 01/17/2025 08:17:27 2025 15:51:19 Chronic diastolic heart failure 953881757 I50.32 [id number] 01/17/25: Start Entresto 24/26mg BID, having weight gain. Continue Furosemide . Type 2 mina betes mellitus 64772870 E11.59 E11.69 [id number] 01/17/25: A1c 6.2 on 11/18/24, Reviewed short acting usage, stop Humalog, start Basaglar 15u at hs. F/u 2 weeks, consider decreasing frequency of accuchecks . [id number] Wilian Mcgowan DO [facility] ([facility]) [address] [place] [address] 01/24/2025 08:15:13 01/30/2025 12:42:56 Chronic diastolic heart failure 050984107 I50.32 [id number] 01/24/25: continue Entresto. UT to monitor BP closely.: Start Entresto 24/26mg BID, having weight gain. Continue Furosemide . Type 2 mina betes mellitus 91711018 E11.59 E11.69 [id number] 01/24/25: Increase Basaglar from 15u to 18u at hs, accuchecks only BID. 5: A1c 6.2 on 11/18/24, Reviewed short acting usage, stop Humalog, start Basaglar 15u at hs. F/u 2 weeks, consider decreasing frequency of accuchecks . Essential hypertension 45482295 I10 033397 stable. continue lisinopril , metoprolol Health Concerns Section Related Observation LastModified by Organization Detai ls LastModified Time None Recorded Concern Status LastModified by Organization Details LastModified Time None Recorded Payers Encounter Date Sequence Insurance Name Policy Number Policy Blair Covered Member ID Blair Member ID Guarantor Name 01/24/2025 1 [employer] (MEDICARE REPLACEMENT/ ADVANTAGE - PPO) Jessa Escalera [id number] Jessa Escalera 01/24/2025 2 [place] Jessa Escalera [id number] Jessa Escalera Notes Date Note Type Note Provider Name and Address Organization Details Recorded Time 01/24/2025 text/html ROS as noted in the HPI We are evaluating pt today in Longterm for recheck of CHF and DM. We started Entresto and Basaglar one week ago, on 01/17/25, stopped Humalog. Mild weight fluctuating, overall in the last 3 weeks she is holding steady. Glucose running mid 100-mid 200's. BP running 100-1teen's/ 60's. Pt reports she is feeling better. Denies any fever/ chills/ CP/ SOB. Wilian Mcgowan, DO [address] [place] [address], [address], [facility] 01/24/2025 09:45:41 OBGyn Episode No OBEpisode recorded.
--- OUTSIDE RECORDS SUMMARY | 2025-04-10 23:50 | XMS_ITS ---
Author Organization [facility] Address [address] [facility] Attn: Epic Prelude ADT ANTONI SORIANO [address] Care Team Providers Care Die Trimmer Name Role Phone Rosemary Herman DO Primary Care Provider [phone] Active Problems Problem Noted Date Diagnosed Date [...] and hyp ercapnia 10/22/2023 Panlobular emphysema 10/22/2023 skilled nursing resident 10/16/2023 Overview (10/16/2023): [facility] Atrial fibrillation 10/07/2023 Overview (10/07/2023): With RVR [...]
--- OUTSIDE RECORDS SUMMARY | 2025-04-10 23:50 | XMS_ITS | Encounter Summary ---
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
--- OUTSIDE RECORDS SUMMARY | 2025-04-10 23:50 | XMS_ITS | Encounter Summary ---
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 Gender Identity Not on file Sexual Orientation Not on file documented as of this encounter Plan of Treatment Not on file documented as of this encounter Procedures Procedure Name Priority Date/Time Associated Diagnosis Comments POC GLUCOSE Routine 06/14/2006 6:23 AM HAND DECORATOR POC GLUCOSE Routine 06/13/2006 9:49 AM HAND DECORATOR BASIC METABOLIC PANEL Routine 06/13/2006 5:40 AM HAND DECORATOR documented in this encounter Results * (ABNORMAL) POC GLUCOSE (06/14/2006 6:23 AM HAND DECORATOR) GLUCOSE POC 203(H) 60 - 100 mg/dL INTERFACE SYSTEM 06/14/2006 6:23 AM HAND DECORATOR us Jimmy Bender MD POINT OF CARE TESTING Edited INTERFACE SYSTEM Refer to clinic/hospital department * (ABNORMAL) POC GLUCOSE (06/13/2006 9:49 AM HAND DECORATOR) GLUCOSE POC 212(H) 60 - 100 mg/dL INTERFACE SYSTEM 06/13/2006 9:49 AM HAND DECORATOR Jimmy Bender MD POINT OF CARE TESTING Edited Performing Organization Address [facility] Phone Number INTERFACE SYSTEM Refer to clinic/hospital department * (ABNORMAL) BASIC METABOLIC PANEL (06/13/2006 5:40 AM HAND DECORATOR) GLUCOSE 149(H) 70 - 110 mg/dL INTERFACE [...] 295 mOsm/Kg INTERFACE SYSTEM 06/13/2006 5:40 AM HAND DECORATOR Jimmy Bender MD CHEMISTRY ORDERABLES Edited Performing Organization Address [facility] Phone Number INTERFACE SYSTEM Refer to clinic/hospital department documented in this encounter Visit Diagnoses Diagnosis Benign neoplasm of adrenal gland- Primary documented in this encounter Care Teams Manager Event Relationship Specialty Start Date End Date Amie Emery MD [address] [place] [address] PCP - General Internal Medicine 12/20/18 documented as of this encounter
--- OUTSIDE RECORDS SUMMARY | 2025-04-10 23:50 | XMS_ITS | Encounter Summary ---
Author Organization [facility] Address [address] [place] [address] Care Team Providers Care Iron Piler Name Role Phone Amie Emery MD Primary Care Provider +1- [phone] Encounter Details Date Type Department Care Team (Latest Contact Info) Description 03/08/2004 Outpatient Historical [facility] Cardiac Food Technology Teacher [address] [place] [address] Tone Monae MD NO ADDRESS ON FILE CORON ATHEROSCL [place] CORON VESSEL (Primary Dx) Social History Tobacco Use Types Packs/Day Years Used Date Smoking Tobacco: Never Assessed Comments Unknown Sex and Gender Information Value Date Recorded Sex Assigned at Not on file 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
--- OUTSIDE RECORDS SUMMARY | 2025-04-10 23:50 | XMS_ITS | Encounter Summary ---
[facility] Organization [facility] Address [address] [place] [address] Care Team Providers Care Forest Supervisor Name Role Phone Amie Emery MD Primary Care Provider [phone] Encounter Details Date Type Department Care Team (Late st Contact Info) Description 07/19/2006 Inpatient Historical HIS IN BED Ravin Higgins MD NO ADDRESS ON FILE Coronary Atherosclerosis of [place] Coronary Artery (Primary Dx) Social History Tobacco Use Types Packs/Day Years Used Date Smoking Tobacco: Never Assessed Comments Unknown Sex and Gender Information Value Date Recorded Sex Assigned at Not on file 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 Gender Identity Not on file Sexual [...] OF CARE TESTING Edited Performing Organization Address City/[facility] de Phone Number INTERFACE SYSTEM Refer to clinic/hospital department * POC ACTIVATED CLOTTING TIME (07/19/2006 3:11 PM CDT) ACT POC 141 79 - 149 sec INTERFACE SYSTEM 07/19/2006 3:11 PM CDT us Ravin Higgins MD POINT OF CARE TESTING Edited Performing Organization Address [facility] de Phone Number INTERFACE SYSTEM Refer to clinic/hospital department * (ABNORMAL) POC GLUCOSE (07/19/2006 3:11 PM CDT) GLUCOSE POC 203(H) 60 - 100 mg/dL INTERFACE SYSTEM 07/19/2006 3:11 PM CDT us Ravin Higgins MD POINT OF CARE TESTING Edited Performing Organization Address [facility] Phone Number INTERFACE SYSTEM [...] Goal INR 3.0; range 2.5 - 3.5 POST-CO Goal INR 2.5; range 2.0 - 3.0 [...] 07/19/2006 10:0 0 AM CDT us Ravin Higgins MD HEMATOLOGY ORDERABLES Edited INTERFACE SYSTEM Refer [...] MD HEMATOLOGY ORDERABLES Edited Performing Organization Address [facility] de Phone Number INTERFACE SYSTEM Refer to [...] MD CHEMISTRY ORDERABLES Edited Performing Organization Address [facility] de Phone Number INTERFACE SYSTEM Refer to clinic/hospital department documented in this encounter Visit Diagnoses Diagnosis Coronary atherosclerosis of [place] coronary artery- Primary documented in this encounter Care Teams Forest Supervisor Relationship Specialty Start Date End Date Amie Emery MD [address] [place] [id number] PCP - General Internal Medicine 12/20/18 documented as of this encounter
--- OUTSIDE RECORDS SUMMARY | 2025-04-10 23:50 | XMS_ITS | Continuity of Care Document ---
Author Organization [facility] Kenneth, [place], [facility] ([facility]) Address [address] [place] [address] Assessment No assessment recorded. Plan of Treatment Reminders Order Date Submit Date Provider Last Modified By Organization Details Last Modified Time Details Appointments None record ed. Lab None record ed. Referral None record ed. Procedures None record ed. Surgeries None record ed. Imaging None record ed. Medication Orders None record ed. Patient TargetsNo targets recorded. Patient InstructionsNo instructions recorded. Reason for Referral None Reported. Problems Name Problem SNOMED Code Status Onset Date Resolution Date Notes Provider Name and Address Organization Details Recorded Time Chronic hypercapnic respiratory failure 611644983 Active 2024 [facility] 15:00:50 Chronic obstructive pulmonary disease 53587454 Active 2024 [facility] 5 15:01:07 Paroxysmal atrial fibrillatio n 661171388 Active 2024 [facility] 5 15:01:28 Type 2 diabetes mellitus 33178998 Active 2024 [facility]lee [facility] 5 15:01:49 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 5 15:05:10 Recurrent major depression in full remission 13467713 Active 2024 Ashlee man, [facility] 5 15:05:26 Malignant neoplasm of sigmoid colon 777348323 Active 2024 Ashlee man, [facility] 5 15:05:39 Chronic diastolic heart failure 880180597 Active 2024 Ashlee Negrete [facility], [facility] 15:05:59 Disorientat ed 60287472 Active 2024 Ashlee De La Cruze [facility] 5 15:06:16 Diverticuli tis of intestine 963880260 Active 2024 Ashlee Negrete [facility], [facility] 5 15:06:39 Noninfectio us gastroenter itis 83435781 Active 2024 Ashlee Negrete [facility] 15:07:32 Anemia 641895878 Active 2024 Ashlee Negrete [facility] 5 15:08:41 Atrial fibrillatio n 88175000 Active 2024 Ashlee Negrete [facility], [facility] 15:09:25 Obesity caused by energy imbalance 034346417 Active 2024 Ashlee Negrete [facility] 5 15:09:40 Benign neoplasm of adrenal gland 57434309 Active 2024 Ashleealia De La Cruze [facility], [facility] 15:09:57 Gastroesoph ageal reflux disease without esophagitis 069342124 Active 2024 Ashlee man, [facility] 5 15:10:30 Aneurysm of infrarenal abdominal aorta 878371942 Active 2024 Ashlee man, [facility] 15:10:41 Constipatio n 53892501 Active 2024 Ashlee Negrete [facility] 15:11:05 Iron deficiency anemia due to blood loss 197861563 Active 2024 Ashlee Negrete [facility], [facility] 15:11:19 Primary hyperparath yroidism 74329957 Active 2024 Ashleenidia De La Cruze [facility] 15:11:36 Hypomagnese teresa 656278400 Active 2024 Ashlee Negrete [facility] 5 15:12:05 Hypokalemia 84973457 Active 2024 Ashlee Negrete [facility], [facility] 15:12:21 Generalized anxiety disorder 67265296 Active 2024 Ashlee Negrete [facility], [facility] 5 15:12:30 Bilateral senile combined form cataracts of eyes 7021049678751 08 Active 2024 Ashlee man, [facility] 5 15:12:42 Old myocardial infarction 6787518 Active 2024 Ashlee Negrete [facility] 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 15:13:08 Senile asthenia 71907032 [facility] [address] [facility], [address] [place] [address] 5, [facility] 17:29:01 Mixed hyperlipide teresa 604534406 Active 2024 [place] [address], [facility] 17:30:00 Abdominal aortic aneurysm without rupture 09543592 Active 2024 [place] [address], [facility] 17:32:12 Moderate recurrent major depression 94315893 Active [address], [address] [place] [address] 5, [facility] 17:32:17 Morbid obesity 118754686 Active [address], [address] [place] [address] 5, [facility] 17:32:19 Metastatic malignant neoplasm to liver 65926363 Active 2024 Ruy man [facility] 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 Medical Equipment None Reported. Allergies Allergen ID Allergen Name Allergen Category Reaction Reaction Severity Criticality Documentation Date Start Date Code Code System Note Provider Name and Address Organization Details Recorded Time 45580 cyclizine medicatio n Not available Not available Not available 11/22/2024 2977 RxNorm [facility] 11:49:09 05934 doxycycli ne Not available Not available Not available Not available 11/22/2024 3640 RxNorm Ashlee Negrete [facility] 11:49:17 46818 erythromy brittany medicatio n Not available Not available Not available 11/22/2024 4053 RxNorm Ashlee Negrete [facility] 11:49:25 07543 naproxen medicatio n Not available Not available Not available 11/22/2024 7258 RxNorm Ashlee Negrete [facility] 11:49:32 75703 Product containin g penicilli n (product) medicatio n Not available Not available Not available 11/22/2024 82468 8001 SNOMED Ashlee Negrete [facility] 11:49:41 33107 Substance with sulfonami de structure and antibacte rial mechanism of action (substanc e) medicatio n Not available Not available Not available 11/22/2024 28384 8003 SNOMED Ashlee Negrete [facility] 11:49:48 85767 cultivate d mushroom extract food,medi cation Not available Not available Not available 11/22/2024 10971 17 RxNorm Ashlee Negrete [facility] 11:49:58 Medications Name Sig Start [...] t Available capecitabin e 500 mg tablet [id number] mg by mouth two times a day 14 days on and 7days off for cancer until 5 23:59 [id number] g twice daily X 14 days, then [...] Not Available Not Available Not Joie vuong Nino Aerosphere 160 mcg-9mcg-4. 8mcg/actuat ion HFA aerosol [...] Updated DateTime 5 147.32 cm 36.9 kg/m2 74197.0 6 g 95 % 70 /min 18 /min 97.1 [degF] 108/60 mm[Hg] Ashlee Negrete [facility] 5 08:36:10 Social History None recorded. Functional Status None recorded. Mental Status None recorded. Family History Nothing Reported. Medical History No medical history recorded. Gynecological HistoryNo gynecological history recorded. Obstetrics History GPAL:G 0 P 0 0 0 0 Immunizations Vaccine Type Date Status Note Provider Nam e and Address Organization Details Recorded Time Influenza, split virus, quadrivalent, PF 02/28/2022 completed Not Available [facility] 5 11:14:10 Influenza, split virus, quadrivalent, PF 02/07/2023 completed Not Available [facility] 5 11:14:10 Influenza, split virus, trivalent, PF 02/01/2024 completed Not Available [facility] 2024 11:14:10 Past Encounters Encounter ID Performer Location Encounter Start Date Encounter Closed Date Diagnosis/Indication Diagnosis SNOMED-CT Code Diagnosis ICD10 Code Diagnosis IMO Codes Diagnosis Note [id number] Wilian Mcgowan DO [facility] ([facility]) [address] [place] [address] 01/17/2025 08:17:27 2025 15:51:19 Chronic diastolic heart failure 920126156 I50.32 [id number] 01/17/25: Start Entresto 24/26mg BID, having weight gain. Continue Furosemide . Type 2 mina betes mellitus 13616439 E11.59 E11.69 [id number] 01/17/25: A1c 6.2 on 11/18/24, Reviewed short acting usage, stop Humalog, start Basaglar 15u at hs. F/u 2 weeks, consider decreasing frequency of accuchecks . [id number] Wilian Mcgowan DO [facility] ([facility]) [address] [place] [address] 01/24/2025 08:15:13 01/30/2025 12:42:56 Chronic diastolic heart failure 449664558 I50.32 [id number] 01/24/25: continue Entresto. NH to monitor BP closely.: Start Entresto 24/26mg BID, having weight gain. Continue Furosemide . Type 2 mina betes mellitus 64428700 E11.59 E11.69 [id number] 01/24/25: Increase Basaglar from 15u to 18u at hs, accuchecks only BID. 5: A1c 6.2 on 11/18/24, Reviewed short acting usage, stop Humalog, start Basaglar 15u at hs. F/u 2 weeks, consider decreasing frequency of accuchecks . Essential hypertension 94605896 I10 913003 stable. continue lisinopril , metoprolol [id number] Wilian Mcgowan DO [facility] ([facility]) [address] [place] [phone] 01/31/2025 08:31:16 02/04/2025 12:40:59 Type 2 diabetes mellitus 56974369 E11.59 E11.69 [id number] 01/31/25: increase Basaglar from 18u to 20u q hs. Continue Accuchecks BID. 5: Increase Basaglar from 15u to 18u at hs, accuchecks only BID. 5: A1c 6.2 on 11/18/24, Reviewed short acting usage, stop Humalog, start Basaglar 15u at hs. F/u 2 weeks, consider decreasing frequency of accuchecks . Gastroesop hageal reflux disease 600324418 K21.9 [id number] 01/31/25: Continue Omeprazole 40mg daily. [id number] Wilian Mcgowan DO [facility] ([facility]) [address] [place] [address] 02/07/2025 08:14:44 02/11/2025 16:37:45 Type 2 diabetes mellitus 94090474 E11.59 E11.69 [id number] 02/07/25: Continue Basaglar 20u, decrease Accucheck to once daily.01/31: increase Basaglar from 18u to 20u q hs. Continue Accuchecks BID. 5: Increase Basaglar from 15u to 18u at hs, accuchecks only BID. 5: A1c 6.2 on 11/18/24, Reviewed short acting usage, stop Humalog, start Basaglar 15u at hs. F/u 2 weeks, consider decreasing frequency of accuchecks . Chronic ob structive pulmonary disease 68733377 J44.9 [id number] Continues inhalers, Breztri. Chronic hy percapnic respiratory failure 655600981 J96.12 [id number] Health Concerns Section Related Observation LastModified by Organization Detai ls LastModified Time None Recorded Concern Status LastModified by Organization Details LastModified Time None Recorded Payers Encounter Date Sequence Insurance Name Policy Number Policy Blair Covered Member ID Blair Member ID Guarantor Name 02/07/2025 1 [employer] (MEDICARE REPLACEMENT/ ADVANTAGE - PPO) Jessa Escalera [id number] Jessa Escalera 02/07/2025 2 [place] Jessa Escalera [id number] Jessa Escalera Notes Date Note Type Note Provider Name and Address Organization Details Recorded Time 02/07/2025 text/html ROS as noted in the HPI We are seeing pt in ID today for recheck of DM after increasing Basaglar. Accuchecks BID, lower 100's-200's throughout the day.Tolerating Basalgar. Wilian Mcgowan DO [address] [place] [address], [phone], ANTONI - Omar Cortez [facility], LDeondre 02/07/2025 12:23:22 OBGyn Episode No OBEpisode recorded.
--- OUTSIDE RECORDS SUMMARY | 2025-04-10 23:50 | XMS_ITS | Encounter Summary ---
Author Organization [facility] Address [address] [place] [address] Care Team Providers Care Mineralogy Professor Name Role Phone Amie Emery MD Primary Care Provider [phone]- [phone] Encounter Details Date Type Department Care Team [...] on file Legal Sex Female 6:22 AM OFFENDER JOB RETENTION SPECIALIST Gender Identity Not on file Sexual Orientation Not on file documented as of this encounter Plan of Treatment Not on file documented as of this encounter Procedures Procedure Name Priority Date/Time Associated Diagnosis Comments POC GLUCOSE Routine 06/26/2006 5:11 AM OFFENDER JOB RETENTION SPECIALIST BASIC METABOLIC PANEL Routine 06/26/2006 4:52 AM OFFENDER JOB RETENTION SPECIALIST POC GLUCOSE Routine 06/25/2006 8:44 PM OFFENDER JOB RETENTION SPECIALIST POC GLUCOSE Routine 06/25/2006 5:45 PM OFFENDER JOB RETENTION SPECIALIST POC GLUCOSE Routine 06/25/2006 11:40 AM OFFENDER JOB RETENTION SPECIALIST POC GLUCOSE Routine 06/25/2006 5:30 AM OFFENDER JOB RETENTION SPECIALIST CBC WITH DIFFERENTIAL Routine 06/25/2006 4:50 AM OFFENDER JOB RETENTION SPECIALIST HEPATIC FUNCTION PANEL Routine 06/25/2006 4:50 AM OFFENDER JOB RETENTION SPECIALIST BASIC METABOLIC PANEL Routine 06/25/2006 4:50 AM OFFENDER JOB RETENTION SPECIALIST POC GLUCOSE Routine 06/24/2006 8:52 PM OFFENDER JOB RETENTION SPECIALIST POC GLUCOSE Routine 06/24/2006 5:55 PM OFFENDER JOB RETENTION SPECIALIST POC GLUCOSE Routine 06/24/2006 12:38 PM OFFENDER JOB RETENTION SPECIALIST POC GLUCOSE Routine 06/23/2006 9:25 PM OFFENDER JOB RETENTION SPECIALIST CK TOTAL, RELATIVE INDEX Routine 06/23/2006 4:54 PM OFFENDER JOB RETENTION SPECIALIST CARDIAC ENZYMES Routine 06/23/2006 4:54 PM OFFENDER JOB RETENTION SPECIALIST CK Routine 06/23/2006 4:54 PM OFFENDER JOB RETENTION SPECIALIST POC GLUCOSE Routine 06/23/2006 4:42 PM OFFENDER JOB RETENTION SPECIALIST CK TOTAL, RELATIVE INDEX Routine 06/23/2006 10:59 AM OFFENDER JOB RETENTION SPECIALIST CARDIAC ENZYMES Routine 06/23/2006 10:59 AM OFFENDER JOB RETENTION SPECIALIST CK Routine 06/23/2006 10:59 AM OFFENDER JOB RETENTION SPECIALIST POC GLUCOSE Routine 06/23/2006 10:51 AM OFFENDER JOB RETENTION SPECIALIST POC GLUCOSE Routine 06/23/2006 8:16 AM OFFENDER JOB RETENTION SPECIALIST POC ACTIVATED CLOTTING TIME Routine 06/23/2006 7:34 AM OFFENDER JOB RETENTION SPECIALIST LIPID PANEL Routine 06/23/2006 6:03 AM OFFENDER JOB RETENTION SPECIALIST CARDIAC ENZYMES Routine 06/23/2006 2:43 AM OFFENDER JOB RETENTION SPECIALIST CBC WITH DIFFERENTIAL Routine 06/23/2006 2:43 AM OFFENDER JOB RETENTION SPECIALIST PTT Routine 06/23/2006 2:43 AM OFFENDER JOB RETENTION SPECIALIST PROTIME-INR Routine 06/23/2006 2:43 AM OFFENDER JOB RETENTION SPECIALIST BASIC METABOLIC PANEL Routine 06/23/2006 2:43 AM OFFENDER JOB RETENTION SPECIALIST documented in this encounter Results * (ABNORMAL) POC GLUCOSE (06/26/2006 5:11 AM OFFENDER JOB RETENTION SPECIALIST) GLUCOSE POC 147(H) 60 - 100 mg/dL INTERFACE SYSTEM 06/26/2006 5:11 AM OFFENDER JOB RETENTION SPECIALIST us Ravin Higgins MD POINT OF CARE TESTING Edited Performing Organization Address [facility] de Phone Number INTERFACE SYSTEM Refer to clinic/hospital department * (ABNORMAL) BASIC METABOLIC PANEL (06/26/2006 4:52 AM OFFENDER JOB RETENTION SPECIALIST) GLUCOSE 138(H) 70 - 110 mg/dL INTERFACE [...] 295 mOsm/Kg INTERFACE SYSTEM 06/26/2006 4:52 AM OFFENDER JOB RETENTION SPECIALIST us Ravin Higgins MD CHEMISTRY ORDERABLES Edited Performing Organization Address [facility] de Phone Number INTERFACE SYSTEM Refer to clinic/hospital department * (ABNORMAL) POC GLUCOSE (06/25/2006 8:44 PM OFFENDER JOB RETENTION SPECIALIST) GLUCOSE POC 167(H) 60 - 100 mg/dL INTERFACE SYSTEM 06/25/2006 8:44 PM OFFENDER JOB RETENTION SPECIALIST us Ravin Higgins MD POINT OF CARE TESTING Edited Performing Organization Address [facility] de Phone Number INTERFACE SYSTEM Refer to clinic/hospital department * (ABNORMAL) POC GLUCOSE (06/25/2006 5:45 PM OFFENDER JOB RETENTION SPECIALIST) GLUCOSE POC 107(H) 60 - 100 mg/dL INTERFACE SYSTEM 06/25/2006 5:45 PM OFFENDER JOB RETENTION SPECIALIST Ravin Higgins MD POINT OF CARE TESTING Edited Performing Organization Address City/State/[facility] Co de Phone Number INTERFACE SYSTEM Refer to clinic/hospital department * (ABNORMAL) POC GLUCOSE (06/25/2006 11:40 AM OFFENDER JOB RETENTION SPECIALIST) GLUCOSE POC 195(H) 60 - 100 mg/dL INTERFACE SYSTEM 06/25/2006 11:4 0 AM OFFENDER JOB RETENTION SPECIALIST Ravin Higgins MD POINT OF CARE TESTING Edited Performing Organization Address [facility] de Phone Number INTERFACE SYSTEM Refer to clinic/hospital department * (ABNORMAL) POC GLUCOSE (06/25/2006 5:30 AM OFFENDER JOB RETENTION SPECIALIST) GLUCOSE POC 142(H) 60 - 100 mg/dL INTERFACE SYSTEM 06/25/2006 5:30 AM OFFENDER JOB RETENTION SPECIALIST Ravin Higgins MD POINT OF CARE TESTING Edited Performing Organization Address [facility] de Phone Number INTERFACE SYSTEM Refer to clinic/hospital department * (ABNORMAL) CBC WITH DIFFERENTIAL (06/25/2006 4:50 AM OFFENDER JOB RETENTION SPECIALIST) WBC 9.0 4.8 - 10.8 K/ul INTERFACE [...] 0.2 K/ul INTERFACE SYSTEM 06/25/2006 4:50 AM OFFENDER JOB RETENTION SPECIALIST Ravin Higgins MD HEMATOLOGY ORDERABLES Edited Performing Organization Address [facility] Phone Number INTERFACE SYSTEM Refer to clinic/hospital department * (ABNORMAL) BASIC METABOLIC PANEL (06/25/2006 4:50 AM OFFENDER JOB RETENTION SPECIALIST) GLUCOSE 157(H) 70 - 110 mg/dL INTERFACE [...] 295 mOsm/Kg INTERFACE SYSTEM 06/25/2006 4:50 AM OFFENDER JOB RETENTION SPECIALIST Ravin Higgins MD CHEMISTRY ORDERABLES Edited Performing Organization Address [facility] Phone Number INTERFACE SYSTEM Refer to clinic/hospital department * (ABNORMAL) HEPATIC FUNCTION PANEL (06/25/2006 4:50 AM OFFENDER JOB RETENTION SPECIALIST) TOTAL PROTEIN 6.5 6.3 - 8.2 g/dL INTERFACE SYSTEM ALBUMIN 3.9 3.5 - 5.0 g/dL INTERFACE SYSTEM ALKALINE PHOSPHATASE 161(H) 25 - 100 U/L INTERFACE SYSTEM AST 54(H) 8 - 33 U/L INTERFACE SYSTEM ALT 34 4 - 36 IU/L INTERFACE SYSTEM BILIRUBIN TOTAL 0.4 0.3 - 1.2 mg/dL INTERFACE SYSTEM BILIRUBIN DIRECT 0.1 0.0 - 0.4 mg/dL INTERFACE SYSTEM 06/25/2006 4:50 AM OFFENDER JOB RETENTION SPECIALIST Ravin Higgins MD CHEMISTRY ORDERABLES Edited Performing Organization Address [facility] Phone Number INTERFACE SYSTEM Refer to clinic/hospital department * (ABNORMAL) POC GLUCOSE (06/24/2006 8:52 PM OFFENDER JOB RETENTION SPECIALIST) GLUCOSE POC 228(H) 60 - 100 mg/dL INTERFACE SYSTEM 06/24/2006 8:52 PM OFFENDER JOB RETENTION SPECIALIST Ravin Higgins MD POINT OF CARE TESTING Edited Performing Organization Address [facility] de Phone Number INTERFACE SYSTEM Refer to clinic/hospital department * (ABNORMAL) POC GLUCOSE (06/24/2006 5:55 PM OFFENDER JOB RETENTION SPECIALIST) GLUCOSE POC 114(H) 60 - 100 mg/dL INTERFACE SYSTEM 06/24/2006 5:55 PM OFFENDER JOB RETENTION SPECIALIST us Ravin Higgins MD POINT OF CARE TESTING Edited Performing Organization Address [facility] Phone Number INTERFACE SYSTEM Refer to clinic/hospital department * (ABNORMAL) POC GLUCOSE (06/24/2006 12:38 PM OFFENDER JOB RETENTION SPECIALIST) GLUCOSE POC 168(H) 60 - 100 mg/dL INTERFACE SYSTEM 06/24/2006 12:3 8 PM OFFENDER JOB RETENTION SPECIALIST us Ravin Higgins MD POINT OF CARE TESTING Edited Performing Organization Address [facility] de Phone Number INTERFACE SYSTEM Refer to clinic/hospital department * (ABNORMAL) POC GLUCOSE (06/23/2006 9:25 PM OFFENDER JOB RETENTION SPECIALIST) GLUCOSE POC 174(H) 60 - 100 mg/dL INTERFACE SYSTEM 06/23/2006 9:25 PM OFFENDER JOB RETENTION SPECIALIST Ravin Higgins MD POINT OF CARE TESTING Edited Performing Organization Address [facility] Phone Number INTERFACE SYSTEM Refer to clinic/hospital department * (ABNORMAL) CK TOTAL, RELATIVE INDEX (06/23/2006 4:54 PM OFFENDER JOB RETENTION SPECIALIST) CK-MB CHEMICAL INDEX 13.1(H) 0.0 - 4.5 INTERFACE SYSTEM 06/23/2006 4:54 PM OFFENDER JOB RETENTION SPECIALIST Asim Lan DO CHEMISTRY ORDERABLES Ed ited Performing Organization Address [facility] Phone Number INTERFACE SYSTEM Refer to clinic/hospital department * (ABNORMAL) CK (06/23/2006 4:54 PM OFFENDER JOB RETENTION SPECIALIST) CK 1,317(H) 26 - 140 U/L INTERFACE SYSTEM Comment: As of 05 the [facility] has changed testing methods. The new reference ranges are Males 38-174 Females 26-140 The old referance ranges were Males 0-155 Females 0-133 06/23/2006 4:54 PM OFFENDER JOB RETENTION SPECIALIST Asim Lan DO CHEMISTRY ORDERABLES Ed ited Performing Organization Address [facility] Phone Number INTERFACE SYSTEM Refer to clinic/hospital department * (ABNORMAL) CARDIAC ENZYMES (06/23/2006 4:54 PM OFFENDER JOB RETENTION SPECIALIST) TROPONIN I 43.6(AA) 0.0 - 1.5 ng/mL INTERFACE SYSTEM Comment: Potentially critical/toxic troponin called by rr nnamdi langley, with verbal read back, at 06/23/2006 17:46. CKMB 172.0(H) 0.0 - 5.0 ng/mL INTERFACE SYSTEM 06/23/2006 4:54 PM OFFENDER JOB RETENTION SPECIALIST Asim Lan DO CHEMISTRY ORDERABLES Ed ited Performing Organization Address [facility] Phone Number INTERFACE SYSTEM Refer to clinic/hospital department * (ABNORMAL) POC GLUCOSE (06/23/2006 4:42 PM OFFENDER JOB RETENTION SPECIALIST) GLUCOSE POC 108(H) 60 - 100 mg/dL INTERFACE SYSTEM 06/23/2006 4:42 PM OFFENDER JOB RETENTION SPECIALIST Ravin Higgins MD POINT OF CARE TESTING Edited Performing Organization Address [facility] Phone Number INTERFACE SYSTEM Refer to clinic/hospital department * (ABNORMAL) CK TOTAL, RELATIVE INDEX (06/23/2006 10:59 AM OFFENDER JOB RETENTION SPECIALIST) CK-MB CHEMICAL INDEX 14.7(H) 0.0 - 4.5 INTERFACE SYSTEM 06/23/2006 10:5 9 AM OFFENDER JOB RETENTION SPECIALIST Asim Lan DO CHEMISTRY ORDERABLES Ed ited Performing Organization Address [facility] Phone Number INTERFACE SYSTEM Refer to clinic/hospital department * (ABNORMAL) CK (06/23/2006 10:59 AM OFFENDER JOB RETENTION SPECIALIST) CK 1,318(H) 26 - 140 U/L INTERFACE SYSTEM Comment: As of 05 the [facility] has changed testing methods. The new reference ranges are Males 38-174 Females 26-140 The old referance ranges were Males 0-155 Females 0-133 06/23/2006 10:5 9 AM OFFENDER JOB RETENTION SPECIALIST Asim Lan DO CHEMISTRY ORDERABLES Ed ited Performing Organization Address [facility] Phone Number INTERFACE SYSTEM Refer to clinic/hospital department * (ABNORMAL) CARDIAC ENZYMES (06/23/2006 10:59 AM OFFENDER JOB RETENTION SPECIALIST) TROPONIN I 43.3(AA) 0.0 - 1.5 ng/mL INTERFACE SYSTEM Comment: Potentially critical/toxic TROP called by RENA to CARI LANGLEY, with verbal read back, at 1139. CKMB 194.2(H) 0.0 - 5.0 ng/mL INTERFACE SYSTEM 06/23/2006 10:5 9 AM OFFENDER JOB RETENTION SPECIALIST Asim Lan DO CHEMISTRY ORDERABLES Ed ited Performing Organization Address City/[facility] de Phone Number INTERFACE SYSTEM Refer to clinic/hospital department * (ABNORMAL) POC GLUCOSE (06/23/2006 10:51 AM OFFENDER JOB RETENTION SPECIALIST) GLUCOSE POC 179(H) 60 - 100 mg/dL INTERFACE SYSTEM 06/23/2006 10:5 1 AM OFFENDER JOB RETENTION SPECIALIST Ravin Higgins MD POINT OF CARE TESTING Edited Performing Organization Address [facility] de Phone Number INTERFACE SYSTEM Refer to clinic/hospital department * (ABNORMAL) POC GLUCOSE (06/23/2006 8:16 AM OFFENDER JOB RETENTION SPECIALIST) GLUCOSE POC 163(H) 60 - 100 mg/dL INTERFACE SYSTEM 06/23/2006 8:16 AM OFFENDER JOB RETENTION SPECIALIST Ravin Higgins MD POINT OF CARE TESTING Edited Performing Organization Address [facility] Phone Number INTERFACE SYSTEM Refer to clinic/hospital department * (ABNORMAL) POC ACTIVATED CLOTTING TIME (06/23/2006 7:34 AM OFFENDER JOB RETENTION SPECIALIST) ACT POC 150(H) 79 - 149 sec INTERFACE SYSTEM 06/23/2006 7:34 AM OFFENDER JOB RETENTION SPECIALIST Ravin Higgins MD POINT OF CARE TESTING Edited Performing Organization Address [facility] de Phone Number INTERFACE SYSTEM Refer to clinic/hospital department * LIPID PANEL (06/23/2006 6:03 AM OFFENDER JOB RETENTION SPECIALIST) CHOLESTEROL 192 75 - 200 mg/dL INTERFACE SYSTEM HDL 48 40 - 60 mg/dL INTERFACE SYSTEM TRIGLYCERIDE 184 0 - 200 mg/dL INTERFACE SYSTEM CALCULATED LDL CHOLESTEROL 107 0 - 130 mg/dL INTERFACE SYSTEM CALCULATED TOTAL CHOLESTEROL TO HDL RATIO 4.00 3.27 - 4.44 INTERFACE SYSTEM 06/23/2006 6:03 AM OFFENDER JOB RETENTION SPECIALIST Ravin Higgins MD CHEMISTRY ORDERABLES Edited INTERFACE SYSTEM Refer to clinic/hospital department * (ABNORMAL) CBC WITH DIFFERENTIAL (06/23/2006 2:43 AM OFFENDER JOB RETENTION SPECIALIST) WBC 19.2(H) 4.8 - 10.8 K/ul INTERFACE [...] Automated Diff INTERFACE SYSTEM 06/23/2006 2:43 AM OFFENDER JOB RETENTION SPECIALIST Asim Lan DO HEMATOLOGY ORDERABLES F inal Result Performing Organization Address City/[facility]/ZIP Co de Phone Number INTERFACE SYSTEM Refer to clinic/hospital department * PTT (06/23/2006 2:43 AM OFFENDER JOB RETENTION SPECIALIST) PTT 24.3 21.6 - 35.6 Secs INTERFACE SYSTEM Comment: Therapeutic Range: Hi-level PE/DVT heparin protocol 80.1 -95.0 sec Lo-level PE/DVT heparin protocol 67.1 - 80.0 sec Cardiac Heparin Protocol 67.1 - 85.0 sec Neuro Heparin Protocol 67.1 - 80.0 sec As of 04/06/2006 note change in APTT Normal Range. 06/23/2006 2:43 AM OFFENDER JOB RETENTION SPECIALIST Asim Lan DO HEMATOLOGY ORDERABLES E dited Performing Organization Address [facility] Phone Number INTERFACE SYSTEM Refer to clinic/hospital department * PROTIME-INR (06/23/2006 2:43 AM OFFENDER JOB RETENTION SPECIALIST) Pathologist [facility] PROTIME 14.2 13.0 - 15.7 Secs INTERFACE SYSTEM Comment: As of 06 note change in normal range. INR 1.0 INTERFACE SYSTEM Comment: Expected Values for INR: DVT/PE Goal INR 2.5; range 2.0 - 3.0 Valve Replacement Tissue Goal INR 2.5; range 2.0 - 3.0 Mechanical Goal INR 3.0; range 2.5 - 3.5 POST-AR Goal INR 2.5; range 2.0 - 3.0 or Goal 3.0; range 2.5 - 3.5 Atrial Fibrillation Goal INR 2.5; range 2.0 - 3.0 Ischemic Stroke Goal INR 2.5; range 2.0 - 3.0 For additional information see Guidelines for Anticoagulation available from the pharmacy Gabriela Ding. 06/23/2006 2:43 AM OFFENDER JOB RETENTION SPECIALIST Asim Lan DO HEMATOLOGY ORDERABLES E dited Performing Organization Address [facility] Phone Number INTERFACE SYSTEM Refer to clinic/hospital department * (ABNORMAL) BASIC METABOLIC PANEL (06/23/2006 2:43 AM OFFENDER JOB RETENTION SPECIALIST) GLUCOSE 311(H) 70 - 110 mg/dL INTERFACE [...] 295 mOsm/Kg INTERFACE SYSTEM 06/23/2006 2:43 AM OFFENDER JOB RETENTION SPECIALIST Asim Lan DO CHEMISTRY ORDERABLES Ed ited Performing Organization Address City/[facility] Co de Phone Number INTERFACE SYSTEM Refer to clinic/hospital department * CARDIAC ENZYMES (06/23/2006 2:43 AM OFFENDER JOB RETENTION SPECIALIST) TROPONIN I <0.1 0.0 - 1.5 ng/mL INTERFACE SYSTEM CKMB 0.6 0.0 - 5.0 ng/mL INTERFACE SYSTEM 06/23/2006 2:43 AM OFFENDER JOB RETENTION SPECIALIST Asim Lan DO CHEMISTRY ORDERABLES Ed ited Performing Organization Address City/[facility]/ZIP Co de Phone Number INTERFACE SYSTEM Refer to clinic/hospital department documented in this encounter Visit Diagnoses Diagnosis Acute myocardial infarction of other inferior wall, initial episode of care- Primary documented in this encounter Care Teams Mineralogy Professor Relationship Specialty Start Date End Date Amie Emery MD [address] [place] [address] PCP - General Internal Medicine 12/20/18 documented as of this encounter
--- OUTSIDE RECORDS SUMMARY | 2025-04-10 23:50 | XMS_ITS | Encounter Summary ---
Author Organization 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) Social History Tobacco Use Types Packs/Day Years Used Date Smoking Tobacco: Never Assessed Comments Unknown Sex and Gender Information Value Date Recorded Sex Assigned at Not on file Legal Sex Female 6:22 AM RESEARCH CHEMIST Gender Identity Not on file Sexual Orientation Not on file documented as of this encounter Plan of Treatment Not on file documented as of this encounter Visit Diagnoses Diagnosis 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
--- OUTSIDE RECORDS SUMMARY | 2025-04-10 23:50 | XMS_ITS | Clinical Summary ---
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 12/21/19 19 Active Additional Information Patient taking differently: 15 UnitssubCUTDAILY WITH BREAKFAST, Reported on 10/11/2024 atorvastatin (LIPITOR) 40 mg tablet Take 40 mg by mouth daily with supper. 12/21/19 19 Active albuterol sulfate HFA 90 mcg/actuation aerosol inhaler Take 2 Puffs by inhalation every 6 hours as needed for Shortness of Breath. Active benzonatate (TESSALON) 100 mg capsule benzonatate 100 mg capsule 02/18/20 23 Active Breztri Aerosphere 160 mcg-9mcg-4.8mcg/ actuation HFA aerosol inhaler inhale two puffs by mouth twice daily Active insulin lispro (HumaLOG,ADMELOG ) 100 unit/mL pen syringe 10/24/19 24 Active omeprazole (PriLOSEC) 40 mg Capsule, Delayed Release(E.C.) Take 40 mg by mouth daily. Active ondansetron (ZOFRAN ODT) 4 mg Tablet, Rapid Dissolve Take 1 Tablet (4 mg) by mouth every 6 hours as needed for Nausea/Emesis. Dissolve tablet on top of tongue, then swallow with saliva. 30 Tablet 03/22/20 24 Active triamcinolone acetonide (KENALOG) 0.1 % Cream Apply to affected area 2 times daily. 60 Gram 1 04/09/20 24 Active SODIUM CHLORIDE 0.9 %, FLUSH, INJECTION by Injection route. Active heparin, porcine, pf, (heparin LockFlush,Porcin e,,PF,) 10 unit/mL Syringe Inject 50 Units by intravenous injection see administration instructions. [facility] Active sertraline (ZOLOFT) 50 mg tablet take 1 tablet by mouth once daily 90 Tablet 2 06/05/19 25 Active Eliquis 5 mg tablet Take 1 Tablet by mouth 2 times daily. 05/28/19 25 Active cetirizine (ZyrTEC) 10 mg tablet Take 1 Tablet (10 mg) by mouth daily. 100 Tablet 3 06/27/19 25 Active montelukast (SINGULAIR) 10 mg tablet TAKE 1 TABLET BY MOUTH ONCE DAILY 90 Tablet 1 07/05/19 25 Active ergocalciferol (VITAMIN D2) 50,000 unit capsule TAKE 1 CAPSULE BY MOUTH ONCE A WEEK 12 Capsule 07/04/19 25 Active metoprolol succinate (TOPROL XL) 50 mg Extended Release 24 hour tablet TAKE ONE TABLET BY MOUTH TWICE DAILY 180 Tablet 4 07/09/19 25 Active isosorbide mononitrate (IMDUR) 30 mg Extended Release 24 hour tablet TAKE ONE TABLET BY MOUTH DAILY. 90 Tablet 3 07/17/19 25 Active losartan (COZAAR) 25 mg tabletIndication s:Primary hypertension Take 1 Tablet (25 mg) by mouth daily. 90 Tablet 3 07/17/19 25 Active diphenoxylate-at ropine 2.5 mg-0.025 mg tablet TAKE ONE TABLET BY MOUTH FOUR TIMES DAILY NEEDED FOR Diarrhea/Loose stools. 30 Tablet 07/20/19 25 Active traMADol (ULTRAM) 50 mg tabletIndication s:Chronic midline low back pain with bilateral sciatica Take 1 Tablet (50 mg) by mouth 3 times daily as needed for Pain. 90 Tablet 1 08/20/19 25 Active furosemide (LASIX) 40 mg tablet TAKE ONE TABLET BY MOUTH TWICE DAILY, SEVEN hours APART. 60 Tablet 2 08/20/19 25 Active baclofen (LIORESAL) 10 mg tablet TAKE ONE TABLET BY MOUTH THREE TIMES DAILY NEEDED FOR pain. 30 Tablet 3 08/20/19 25 Active HYDROcodone-acet aminophen (NORCO) 5-325 mg tabletIndication s:Metastatic colon cancer to liver (CMS/HCC) Take 1 Tablet by mouth every 6 hours as needed for Pain, Moderate. Max Daily Amount: 4 Tablets 40 Tablet 10/12/19 25 Active Ozempic 1 mg/dose (4 mg/3 mL) Pen InjectorIndicati ons:Controlled type 2 diabetes mellitus without complication, with long-term current use of insulin (CMS/HCC) Inject 1 mg by subcutaneous injection every 7 days. 6 mL 3 10/12/19 25 Active gabapentin (NEURONTIN) 300 mg capsule TAKE ONE CAPSULE BY MOUTH THREE TIMES DAILY. 270 Capsule 3 10/18/19 25 Active prochlorperazine maleate (COMPAZINE) 10 mg tabletIndication s:Cancer of sigmoid colon (CMS/HCC),Metast atic colon cancer to liver (CMS/HCC) TAKE ONE TABLET BY MOUTH EVERY SIX hours NEEDED FOR nausea/emesis. 30 Tablet 6 11/18/19 25 Active potassium CHLORIDE (K-DUR,KLOR-CON M20) 20 mEq Extended Release tablet TAKE ONE TABLET BY MOUTH DAILY. 30 Tablet 2 01/17/20 25 Active Ferrex 150 150 mg iron capsule TAKE ONE CAPSULE BY MOUTH DAILY. 90 Capsule 1 01/17/20 25 Active capecitabine (XELODA) 500 mg tabletIndication s:Cancer of sigmoid colon (CMS/HCC) Take 2 tablets (1,000 mg) by mouth twice daily for 14 days on, then 7 days off of each 21-day chemotherapy cycle. 56 Tablet 03/11/20 25 Active Active Problems Problem Noted Date Diagnosed [...] and hyp ercapnia 10/22/2023 Panlobular emphysema 10/22/2023 intermediate resident 10/16/2023 Overview (10/16/2023): [facility] Atrial fibrillation 10/07/2023 Overview (10/07/2023): With RVR [...] Encounters Date Type Department Care Team Description 04/02/2025 Patient Outreach [facility] [address] [place] [address] Rosemary Herman, Primary Care Outreach (Needs appointment prior to end of the year.) 03/19/2025 Specialty Pharmacy [facility] [address] [place] [phone] Francesca Dillon, PHARMACIST 03/11/[address] [facility] [place] [address] [phone] Greg Corona MD Cancer of sigmoid colon ([facility]/HCC) 03/06/2025 Specialty Pharmacy [facility] [address] [place] [phone] Kacie Holbrook, PHARMACIST 02/24/2025 Specialty Pharmacy [facility] [address] [place] [phone] Francesca Dillon, PHARMACIST 02/20/2025 Specialty Pharmacy [facility] [address] [place] [phone] Rimma Hooker, PHARMACIST 02/18/[address] [facility] [place] [address] [phone] Greg Corona MD Cancer of sigmoid colon ([facility]/HCC) 02/03/2025 Specialty Pharmacy [facility] [address] [place] [phone] Francesca Dillon, PHARMACIST 01/28/2025 Specialty Pharmacy [facility] [address] [place] [phone] Rimma Hooker, PHARMACIST 01/17/2025 Specialty Pharmacy [facility] [address] [facility] [phone] Rimma Hooker, MACARIO 01/16/[address] [facility] [place] [address] [place] [phone] Greg Corona MD Cancer of sigmoid colon ([facility]/HCC) 01/16/2025 Refill [facility] [address] [place] [address] Rosemary Herman, DO 01/15/2025 Refill [facility] [address] [place] [phone] Rosemary Herman, DO 01/15/2025 External Device Data ST[facility] ABSTRACTION Provider, Abstract [...] Cancer Neg Hx Relation Name Status Comments Brothrola Moreira jr Father Guzman Mother Airam Sister Paulina Social [...] who hurts you emotionally and/or physically? No 06/13/2024 Food Insecurity Answer Date Recorded Patient needs follow up regardin 08/22/2024 Transportation Needs Answer Date Record ed Patient needs follow up regardin 08/22/2024 Housing Stability Answer Date Recorded Social/Environmental Concerns No concerns Utility Needs Answer Date Recorded Patient needs follow up regardin 08/22/2024 Comments No Sex and Gender Information Value Date Recorded Sex Assigned at Not on file Legal Sex Female 1:22 PM SAW OFFBEARER Gender Identity Not on file Sexual Orientation [...] 10/11/2024 10:38 AM CDT Plan of Treatment Health Maintenance Due Date Last Done Comments DIABETES ANNUAL FOOT EXAM 1973 DTAP/TDAP/TD VACCINES (1 - Tdap) 1974 PNEUMOCOCCAL VACCINE 50+ YEA RS (1 of 2 - PCV) 1974 ZOSTER VACCINE (1 of 2) 1974 RSV VACCINE (60+ or ) (1 - Risk 50-74 years 1-dose series) 2005 DIABETES ANNUAL RETINAL EXAM 04/23/2020, 04/23/2019, 04/23/2019, Additional history exists DIABETES MICROALBUMIN ANNUAL SCREEN 07/06/2023 07/05/2022 BREAST CANCER SCREENING 10/12/2023 10/12/19 23, 08/20/2018, 01/11/2017 Medicare Advantage ([place]) Preventative Visit/Annual Wellness Visit 05/01/2024 04/09/2024 INFLUENZA VACCINE (#1) 2024 4, 03/30/2020, 02/28/2019 DIABETES HBA1C Q 6 MONTHS [...] years Discontinued Medical Devices Implanted Type Area Plastic Tile Setter Device Identifier Shelf Expiration Date Model / Serial / Lot Clip Ligating Horizon Sm [id number] - [id number] Implanted:Qty: 1 on 06/02/2020 by Yasmany Sanchez MD Clip N/A: Neck [employer] [id number] 05/14/2024 [id number] / / [id number] Lens Io Tecnis 1pc 20.0 [id number] - [id number] Implanted:Qty: 1 on 04/18/2019 by Dar Lepe MD Eye Right: Eye [employer] 01/21/2023 [id number] / [id number] / Lens Io Tecnis 1pc 20.5 [id number] - [id number] Implanted:Qty: 1 on 04/30/2019 by Dar Lepe MD Eye Left: Eye [employer] 12/29/2022 [id number] / [id number] / Port Pwrprt Clearvue Slim 8fr [id number] - [id number] Implanted:Qty: 1 on 07/03/2024 by Jacob Burton MD at [facility] Port Right: Chest Wall [employer] [id number] 09/28/2025 [id number] / / [id number] Procedures Procedure Name Priority Date/Time Associated Diagnosis Comments HEMOGLOBIN A1C Routine 10/11/2024 11:05 AM CDT Controlled type 2 diabetes mellitus without complication, with long-term current use of insulin (CMS/HCC) LIPID PANEL Routine 06/11/2024 1:14 PM SAW OFFBEARER Metastatic colon cancer to liver (CMS/HCC) Paroxysmal atrial fibrillation (CMS/HCC) Controlled type 2 diabetes mellitus without complication, with long-term current use of insulin (CMS/HCC) Chronic respiratory failure with hypoxia and hypercapnia (CMS/HCC) Panlobular emphysema (CMS/HCC) Morbid obesity with body mass index (BMI) of 40.0 or higher (CMS/HCC) Primary hyperparathyroidism Recurrent major depressive disorder, in full remission Atherosclerosis of zuni coronary artery of zuni heart without angina pectoris Generalized anxiety disorder Primary hypertension Mixed hyperlipidemia COLONOSCOPY REPORT 11/28/2023 12 :19 PM CDT XR DEXA BONE DENSITY AXIAL 1 OR MORE SITES Routine 02/28/2023 11:38 AM CDT MAMMO SCREEN BILAT W OR WO CAD Routine 10/11/2022 11:39 AM CDT MICROALBUMIN/CREATI NINE RATIO, RANDOM UR Routine 07/05/2022 from Last 3 Months or Most Recently Relevant to Health Maintenance Results * (ABNORMAL) HEMOGLOBIN A1C (10/11/2024 11:05 AM CDT) HEMOGLOBIN A1C 7.0(H) <5.7 % [facility] Comment: For someone without known diabetes, [...] ESTIMATED AVERAGE GLUCOSE (MG/DL) 154 mg/dL [facility] ESTIMATED AVERAGE GLUCOSE (MMOL/L) 8.5 mmol/L [facility] Comment: Test Performed at: [facility] [address] [place] [address] Ilsa Hale MD Blood 10/11/2024 11:0 5 AM CDT 10/12/2024 6:21 AM CDT Art Buchanan COMBER SETTER CHEMISTRY ORDERABLES Final Result [facility] [phone] [facility] [place] [address] * (ABNORMAL) LIPID PANEL (06/11/2024 1:14 PM SAW OFFBEARER) CHOLESTEROL 148 <200 mg/dL [facility] HDL 53 > OR = 50 mg/dL [facility] TRIGLYCERIDE 154(H) <150 mg/dL [facility] LDL CALCULATED 71 mg/dL (calc) [facility] Comment: Reference range: <100 Desirable range <100 mg/dL for primary prevention; <70 mg/dL for patients with CHD or diabetic patients with > or = 2 CHD risk factors. LDL-C is now calculated using the Blayne calculation, which is a validated novel method providing better accuracy than the Friedewald equation in the estimation of LDL-C. Bolivar VICENTE et al. URI. 2013;310(19): 5365-9429 (http://education.MEDNAX/faq/ZCH559) CHOL/HDL RATIO 2.8 <5.0 (calc) [facility] NON-HDL CHOLESTEROL 95 <130 mg/dL (calc) [facility] Comment: For patients with diabetes plus 1 major ASCVD risk factor, treating to a non-HDL-C goal of <100 mg/dL (LDL-C of <70 mg/dL) is considered a therapeutic option. Test Performed at: [facility] [place] [address] Ilsa Hale MD Blood 06/11/2024 1:14 PM SAW OFFBEARER 06/11/2024 1:14 PM SAW OFFBEARER us Rosemary Herman DO CHEMISTRY ORDERABLES Final Result [facility] [phone] [facility] [place] [address] * COLONOSCOPY REPORT (11/28/2023 12:19 PM CDT) Narrative Procedure Note Broderick Bryan DO - 11/28/2023 12:19 PM CDT [facility] GI Patient Name: Jessa Escalera [...] pathology results are reviewed for surveillance. Broderick Bryan DO 11/28/2023 12:18:42 PM Number of Addenda: 0 Note Initiated On: 11/28/2023 11:10 AM Scope Withdrawal Time Scope In: 12:05:12 PM Scope Out: 12:16:08 PM [address] [place], [place] us Broderick Bryan DO GI PROCEDURE [...] Recently Relevant to Health Maintenance Insurance MEDICAID [place] [facility] * Guarantor: JESSA ESCALERA Account Type Relation to Patient Date of Phone Billing Address Personal/Family 1955 [address] [place] [address] [employer] Medicare Part D [employer] Medicaid Advance Directives For more information, please contact: [phone] * Full Code (Latest Code Status on [...] 11:55 AM 10/12/2023 4:13 PM Care Teams 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
--- NOTE | 2025-04-10 23:52 | XRR_ITS ---
PROCEDURE INFORMATION: Exam: XR Right Shoulder Exam date and time: 04/11/2025 12:12 AM Age: 70 years old Clinical indication: Injury or trauma; Fall; Blunt trauma (contusions or hematomas); Shoulder; Right TECHNIQUE: Imaging protocol: Radiologic exam of the right shoulder. Views: 2 or more views. COMPARISON: CT lung screening [id number] 10/11/2022 11:42 AM FINDINGS: Tubes, catheters and devices: Right Port-A-Cath terminates in the SVC. Bones/joints: No acute fracture or dislocation. Diffuse osseous demineralization. Severe osteoarthritis of the right glenohumeral joint, with extensive osteophytic spurring of the inferomedial humeral head. Soft tissues: Normal. XR/XR shoulder RT min 2V* [id number] IMPRESSION: No acute fracture or dislocation.
--- NOTE | 2025-04-11 00:06 | XRR_ITS ---
PROCEDURE INFORMATION: Exam: XR Right Hip Exam date and time: 04/11/2025 12:05 AM Age: 70 years old Clinical indication: Injury or trauma; Fall; Blunt trauma (contusions or hematomas); Right; Hip; Additional info: R hip pain TECHNIQUE: Imaging protocol: Radiologic exam of the right hip. Views: 2 or 3 views hip with pelvis when performed. COMPARISON: CR XR lumbar spine 6V w f/e [id number] 10/11/2022 11:26 AM FINDINGS: Bones/joints: Possible fracture of the left posterior acetabulum. Recommend CT scan for further evaluation. Diffuse osseous demineralization. Soft tissues: Unremarkable. Organs: Calcified fibroid in the left pelvis measures 2.5 cm. XR/XR hip RT 2-3V wo/w pel* [id number] IMPRESSION: Possible fracture of the left posterior acetabulum. Recommend CT scan for further evaluation.
--- NOTE | 2025-04-11 00:06 | XRR_ITS ---
PROCEDURE INFORMATION: Exam: XR Right Wrist Exam date and time: 04/11/2025 12:15 AM Age: 70 years old Clinical indication: Injury or trauma; Fall; Blunt trauma (contusions or hematomas); Wrist; Right; Additional info: R wrist pain TECHNIQUE: Imaging protocol: Radiologic exam of the right wrist. Views: 3 or more views. COMPARISON: No relevant prior studies available. FINDINGS: Bones/joints: No acute fracture or dislocation. Diffuse osseous demineralization. Severe joint space narrowing of the 1st CMC. Soft tissues: Normal. XR/XR wrist RT min 3V* [id number] IMPRESSION: No acute fracture or dislocation.
[2025-04-11 00:31] VITALS: BP 122/72; PULSE 76; O2SAT 98
--- NOTE | 2025-04-11 00:32 | W.ED.FALL ---
HPI - Fall General: Chief Complaint: Fall Stated Complaint: Fall Time Seen by Provider: 04/10/25 23:41 History of Present Illness: Patient is a 70-year-old female that resides at [facility], that presented to the emergency room due to a fall. Her mechanism of injury was mainly her right side. She complains of her right wrist, right shoulder, and right hip pain. This occurred just prior to arrival. Patient stated she slipped when going to the commode. She did not continues her had or neck. She did not have LOC. She did not have a laceration Associated symptoms-after fall: Denies chest pain, headache(s) or neck pain Related Data Home Medications ?Medication ?Instructions ?Recorded ?Confirmed fluticasone propionate 50 1 spray intranasal DAILY 01/27/20 07/06/23 mcg/actuation nasal spray,suspension (Allergy Relief (fluticasone)) insulin degludec 100 unit/mL (3 50 unit SUBCUT DAILY 01/27/20 07/06/23 mL) subcutaneous pen (Tresiba FlexTouch U-100 insulin) calcium 600 mg (as 2 cap PO DAILY 10/26/20 07/06/23 carbonate)-vitamin D3 12.5 mcg (500 unit) capsule (Calcium with Vit D3) bumetanide 1 mg tablet 1 mg PO DAILY 11/23/20 07/06/23 omeprazole 40 mg capsule,delayed 40 mg PO DAILY 12/04/20 07/06/23 release gabapentin 300 mg capsule 300 mg PO TID 07/08/22 07/06/23 Vitamin B-12 PO 01/09/23 07/06/23 apixaban 5 mg tablet (Eliquis) 5 mg PO BID 07/06/23 07/06/23 baclofen 20 mg tablet 20 mg PO DAILY PRN 07/06/23 07/06/23 losartan 25 mg tablet 25 mg PO DAILY 07/06/23 07/06/23 metoprolol succinate 50 mg 100 mg PO BID 07/06/23 07/06/23 tablet,extended release 24 hr semaglutide 0.25 mg or 0.5 mg (2 1 mg SUBCUT Q7D 07/06/23 07/06/23 mg/1.5 mL) subcutaneous pen injector (Ozempic) Previous Rx's ?Medication ?Instructions ?Recorded guaifenesin 600 mg tablet, 600 mg PO Q12H PRN congestion #60 01/21/21 extended release 12 hr (Mucinex) tabs Diabetic shoes and 3 pairs of #1 ea 06/08/22 inserts nitroglycerin 0.4 mg sublingual 0.4 mg sublingual Q5M PRN Chest 07/08/22 tablet (Nitrostat) Pain #30 tabs albuterol sulfate 90 mcg/actuation 2 puff inhalation Q6H PRN 01/05/23 aerosol inhaler shortness of breath or wheezing #8.5 grams ipratropium 0.5 mg-albuterol 3 mg 3 ml inhalation Q4H PRN wheezing 01/09/23 (2.5 mg base)/3 mL nebulization #90 mL soln aspirin 81 mg tablet,delayed 81 mg PO DAILY #90 tabs 07/06/23 release isosorbide mononitrate 30 mg 30 mg PO DAILY #90 tabs 07/25/23 tablet,extended release 24 hr budesonide 160 mcg-glycopyr 9 2 inh inhalation BID #10.7 grams 10/11/23 mcg-formot 4.8 mcg/actuation HFA inhaler (Breztri Aerosphere) lisinopril 20 mg tablet See Rx Instructions .Route 06/13/24 .COMPLEX #90 tabs atorvastatin 40 mg tablet 40 mg PO DAILY #90 tabs 10/17/24 Allergies Allergy/AdvReac Type Severity Reaction Status Date / Time doxycycline Allergy Severe ADR-Gastrointestinal Verified 07/06/23 11:37 Upset naproxen (From Aleve) Allergy Unknown Unknown Verified 07/06/23 11:37 Penicillins Allergy Unknown Unknown Verified 07/06/23 11:37 Sulfa (Sulfonamide Allergy Unknown Unknown Verified 07/06/23 11:37 Antibiotics) Review of Systems Const: Denies: fever(s) or chills Card: Denies: chest pain, palpitations, pre-syncope, orthopnea or leg pain with exertion Resp: Denies: dyspnea, productive cough or non-productive cough Musc: Reports: extremity pain, joint pain and joint swelling; Denies: neck pain, back pain, extremity swelling or joint redness Neuro: Denies: headache(s) or dizziness Psych: Denies: anxiety, depression, suicidal ideation or homicidal ideation PFS ED PFSH: Medical History (Updated 04/11/25 @ 01:01 by RAMSES Valdez) Chronic obstructive pulmonary disease Abdominal aortic aneurysm (AAA) Ischemic cardiomyopathy Hyperlipidemia HTN (hypertension) CAD (coronary artery disease) Family History Father Diabetes Myocardial infarction Grandmother Diabetes Other CAD (coronary artery disease) Cancer Hypertension Social History Smoking and tobacco/nicotine status: current some day tobacco/nicotine user Quit status (tobacco/nicotine): has quit using Year quit tobacco: May 2021 Alcohol intake: never Substance/Drug Use: never Lives independently: Yes Housing: Manufactured/Mobile home Marital status: / Number of children: 3 Pets and animals: Yes Pets & animals: cat(s) and dog(s) Physical Exam Const: COMMON NORMALS: no acute distress, patient oriented x3 and alert HENMT: COMMON NORMALS: normocephalic and atraumatic HEAD & SCALP: normocephalic and atraumatic Eye: COMMON NORMALS: Equal, round and reactive pupils present, EOMs intact bilaterally and no scleral icterus PUPIL: Yes Equal, round and reactive pupils present Chest: COMMONS NORMALS: normal inspection of the chest and normal palpation of entire chest wall Resp: COMMON NORMALS: normal respiratory effort and No retractions Cardio: COMMON NORMALS: regular rate, regular rhythm and No murmurs present (Cardio) RATE: regular rate RHYTHM: regular rhythm GI: COMMON NORMALS: Normal to inspection, nondistended, normoactive bowel sounds present, Soft to palpation and non-tender PALPATION: Yes Soft to palpation Extremity: NARRATIVE EXTREMITY EXAM: Reduced range of motion right shoulder due to pain. Tenderness on pelvic tilt. No point tenderness on SI. Negative straight leg raise. Neuro: COMMON NORMALS: patient oriented x3 SENSORIUM/ORIENTATION: Yes alert Course Vital Signs: Vital signs: Vital Signs Temperature 98.0 F 04/10/25 23:42 Pulse Rate 76 04/11/25 00:31 Respiratory Rate 18 04/10/25 23:42 Blood Pressure 122/72 04/11/25 00:31 Pulse Oximetry 98 04/11/25 00:31 MDM - Fall Medical Decision Making Patient is a pleasant 70-year-old female that presents to the emergency room after a slip and fall when going to the [facility]. She has improvement with her right arm sling. She is not having the left hip tenderness or SI joint tenderness. On x-ray she has left posterior acetabulum fracture. Most likely associated with contusion. Will diagnose for now, and she could work on her ambulatory dysfunction at the [facility], as well as continue the sling, ice. Lab Data Radiology Impressions Shoulder X-Ray 04/10/25 23:52 IMPRESSION: No acute fracture or dislocation. Hip/Pelvis X-Ray 04/11/25 00:06 IMPRESSION: Possible fracture of the left posterior acetabulum. Recommend CT scan for further evaluation. Wrist X-Ray 04/11/25 00:06 IMPRESSION: No acute fracture or dislocation. All radiology interpretation(s) finalized by discharge Discharge Plan Discharge Patient Disposition: Home Clinical Impression: Closed posterior wall fracture of left acetabulum Condition: Stable Prescriptions: No Action calcium carbonate-vitamin D3 [Calcium 600 with Vitamin D3] 600 mg(1,500mg) -500 unit capsule 2 cap PO DAILY bumetanide 1 mg tablet 1 mg PO DAILY fluticasone propionate [Allergy Relief (fluticasone)] 50 mcg/actuation spray,suspension 1 spray INTRANASAL DAILY Rx Instructions: administer into each nostril Tresiba FlexTouch U-100 100 unit/mL (3 mL) insulin pen 50 unit SUBCUT DAILY Ozempic 0.25 mg or 0.5 mg(2 mg/1.5 mL) pen injector 1 mg SUBCUT Q7D Rx Instructions: On Monday guaifenesin [Mucinex] 600 mg tablet extended release 12hr 600 mg PO Q12H PRN (Reason: congestion) Qty: 60 3RF gabapentin 300 mg capsule 300 mg PO TID nitroglycerin [Nitrostat] 0.4 mg tablet, sublingual 0.4 mg SUBLINGUAL Q5M PRN (Reason: Chest Pain) Qty: 30 1RF Rx Instructions: do not exceed 3 doses per episode (DME) Diabetic shoes and 3 pairs of inserts See Rx Instructions .Route .MEDSUPPLY Qty: 1 0RF Rx Instructions: As directed HOME Vitamin B-12 PO baclofen 20 mg tablet 20 mg PO DAILY PRN losartan 25 mg tablet 25 mg PO DAILY Eliquis 5 mg tablet 5 mg PO BID aspirin 81 mg tablet,delayed release (DR/EC) 81 mg PO DAILY Qty: 90 3RF metoprolol succinate 50 mg tablet extended release 24 hr 100 mg PO BID albuterol sulfate 90 mcg/actuation HFA aerosol inhaler 2 puff inhalation Q6H PRN (Reason: shortness of breath or wheezing) Qty: 8.5 4RF ipratropium-albuterol 0.5 mg-3 mg(2.5 mg base)/3 mL solution for nebulization 3 ml inhalation Q4H PRN (Reason: wheezing) Qty: 90 3RF isosorbide mononitrate 30 mg tablet extended release 24 hr 30 mg PO DAILY Qty: 90 3RF Breztri Aerosphere 160-9-4.8 mcg/actuation HFA aerosol inhaler 2 inh inhalation BID Qty: 10.7 3RF lisinopril 20 mg tablet See Rx Instructions .ROUTE .COMPLEX Qty: 90 3RF Dose Instruction: TAKE ONE TABLET BY MOUTH DAILY. Rx Instructions: TAKE ONE TABLET BY MOUTH DAILY. atorvastatin 40 mg tablet 40 mg PO DAILY Qty: 90 0RF Rx Instructions: PATIENT MUST MAKE APPOINTMENT AND BE SEEN FOR FURTHER REFILLS omeprazole 40 mg Capsule,Delayed Release(Dr/Ec) 40 mg PO DAILY Discharge Orders: Discharge ED (Routine); Ordered 04/11/25 Ordered By: Sandra Monroy Referrals: Amie Emery MD [Primary Care Provider, Internal Medicine] Discharge Diet: Usual diet Discharge Activity: Limit activity as instructed Patient Instructions: Pelvic Fracture (ED), Patient Portal & Chadd Instructions Activity Restrictions/Additional Instructions: - Use your walker at all times -Follow-up with your doctor. Your pain medication is for the night. Schedule Tylenol 3 times a day. -You may ice your right shoulder and left hip that will have some improvement. 4?6 times a day shows improvement the best. -Your shoulder and wrist are without any acute findings - Return to ED with worsening pain. - Continue your sling for pain relief as needed Thank you for choosing [facility] for your healthcare needs today. You have been screened and evaluated and felt safe for discharge. Health conditions do change or evolve sometimes and as such it is important that you follow up with your Primary Doctor to be re checked, 3-5 days is a general good time frame for follow up. You are always welcome to return to the ED for re assessment if your symptoms are worsening or you have new concerns Print Language: American Coding Level of Care Code ED Human Resources Partner for Bianca [facility]
[2025-04-11] MEDS: HYDROcodone-acetaminophen 10-325 mg Tablet 2 TAB PO (00:47)
[2025-04-11 01:00] VITALS: BP 152/85; PULSE 79; O2SAT 96
[2025-04-11 01:27] VITALS: BP 152/85; PULSE 80; O2SAT 93
== END 2025-04-11 01:39 | disposition home or self-care (01) ==
PROVIDERS: Emergency Provider Physician Assistant; PCP Internal Medicine
DX: S32.421A Displaced fracture of posterior wall of right acetabulum, initial encounter for closed fracture (principal); W01.0XXA Fall on same level from slipping, tripping and stumbling without subsequent striking against object, initial encounter; Z79.4 Long term (current) use of insulin; E78.5 Hyperlipidemia, unspecified; I10 Essential (primary) hypertension; I25.10 Atherosclerotic heart disease of native coronary artery without angina pectoris; Z72.0 Tobacco use; Z79.01 Long term (current) use of anticoagulants; Z79.82 Long term (current) use of aspirin
CPT/HCPCS: 73030; 73110; 73502; 99284; J9999

== ENCOUNTER → 2025-04-29 14:18 | Outpatient (BNVA) | payer MEDICARE, MEDICAID, SELFPAY | PROVIDERS: PCP Electrodiagnostic Medicine; Visit Provider Orthopaedic Surgery | DX: S42.201A Unspecified fracture of upper end of right humerus, initial encounter for closed fracture (principal); W19.XXXA Unspecified fall, initial encounter; Z46.89 Encounter for fitting and adjustment of other specified devices | CPT/HCPCS: 73030 ==

== ENCOUNTER 2025-04-29 15:21 | Outpatient (CLI) | payer MEDICARE, MEDICAID, SELFPAY | END 2025-04-29 15:22 | disposition home or self-care (01) | LOC: SPT 15:22 | PROVIDERS: PCP Electrodiagnostic Medicine; Visit Provider Orthopaedic Surgery | DX: Z46.89 Encounter for fitting and adjustment of other specified devices (principal); S49.91XA Unspecified injury of right shoulder and upper arm, initial encounter; X58.XXXD Exposure to other specified factors, subsequent encounter | CPT/HCPCS: 99203; A4565 ==